=== PATIENT | female | born 1995 | race Caucasian/White ===

== ENCOUNTER 2022-09-20 03:33 | Outpatient (CLI) | payer OTHER, SELFPAY ==
[2022-09-20 16:23] LABS: Hemoglobin A1C 4.8 % (<5.7)
[2022-09-20 17:22] LABS: Anion Gap 7.7 mmol/L (3-11); BUN 13 mg/dL (7-18); CO2 29.3 mmol/L (21.0-32.0); CREATININE 0.8 mg/dL (0.55-1.02); Calcium 8.8 mg/dL (8.5-10.1); Calculated LDL 72 mg/dL (<100); Chloride 102 mmol/L (98-107); Cholesterol 187 mg/dL (<200); Estimated GFR 104.15 (mL/min/1.73m2); Glucose 85 mg/dL (74-106); HDL Cholesterol 55 mg/dL (40-60); Potassium 3.6 mmol/L (3.5-5.1); Sodium 139 mmol/L (136-145); Triglyceride 303 mg/dL (<150)
== END 2022-09-20 03:34 | disposition home or self-care (01) ==
LOC: LBO 03:33
PROVIDERS: PCP Nurse Practitioner Family; Visit Provider Nurse Practitioner Family
DX: E03.9 Hypothyroidism, unspecified (principal); F32.89 Other specified depressive episodes; F41.1 Generalized anxiety disorder; E78.1 Pure hyperglyceridemia; Z13.1 Encounter for screening for diabetes mellitus
CPT/HCPCS: 36415; 80048; 80061; 83036; 84443

== ENCOUNTER 2023-09-30 02:43 | Outpatient (CLI) | payer BC, SELFPAY ==
[2023-09-30 13:56] LABS: BUN 13 mg/dL (7-18); CREATININE 0.9 mg/dL (0.55-1.02); Calcium 9.6 mg/dL (8.5-10.1); Chloride 102 mmol/L (98-107); Estimated GFR 89.86 (mL/min/1.73m2); Glucose 96 mg/dL (74-106); Sodium 140 mmol/L (136-145); TSH (W/Ref FT4) 3.97 uIU/mL (0.36-3.74)
[2023-09-30 14:13] LABS: FREE T4 0.92 ng/dL (0.76-1.46)
== END 2023-09-30 02:44 | disposition home or self-care (01) ==
LOC: LBO 02:43
PROVIDERS: PCP Nurse Practitioner Family; Visit Provider Nurse Practitioner Family
DX: E03.9 Hypothyroidism, unspecified (principal)
CPT/HCPCS: 36415; 80048; 84439; 84443

== ENCOUNTER 2024-02-10 01:50 | Outpatient (CLI) | payer BC, SELFPAY ==
--- OUTSIDE RECORDS SUMMARY | 2024-02-10 01:54 | XMS_ITS | Encounter Summary ---
Author Organization [facility] [place] [address] Care Team Providers Care Director Of Learning Name Role Phone Belen Bravo Primary Care Provider + Reason for Visit * Reason Onset Date Comments Appointment 01/21/2023 Encounter Details Date Type Department Care Team (Late st Contact Info) Description 01/21/2023 Telephone Neurology at [facility] [address] [place] [address] Kayy Espinosa APRN [facility] [place] [address] Appointment Social History Tobacco Use Types Packs/Day Years Used Date Smoking Tobacco: Never Smokeless Tobacco: Never Comments:no smokers Alcohol Use Standard Drinks/Week Comments Yes 0 (1 standard drink = 0.6 oz pur e alcohol) Occ Sex and Gender Information Value Date Recorded Sex Assigned at Not on file Gender Identity Not on file Sexual Orientation Not on file documented as of this encounter Miscellaneous Notes * Telephone Encounter - Bianka Ramos - 01/21/2023 1:07 PM EDT Kayy Espinosa APRN does not have any later Botox appointments on 02/06/2023. * Telephone Encounter - Bianka Ramos - 01/21/2023 11:55 AM EDT Copied from CRM #[id number]. Topic: Specialty Dept CRMs - Appointment Needed >> Jan 21, 2023 11:49 AM Bennett Verma wrote: Appt Needed Specialist Kayy Espinosa APRN Relationship (if other than patient-full name): Sharmin Cherie Mayo, patient Appt. Type Needed: Other Reason for Visit: Breox Sharmin stated she is currently scheduled for an appointment on 02/09/2023 at 1:30 pm and is wondering if there is a later time that day. Sharmin stated she is at work, just ask for Sharmin documented in this encounter Plan of Treatment Upcoming Encounters Date Type Department Care Team (Late st Contact Info) Description 05/02/2024 2:00 PM EST Procedure visit Neurology at [address] [address] Aaron Ruiz [facility] [place] [address] 06/08/2024 10:30 AM EST TH Visit (TeleHealth) Neurology at [address] [address] Kayy Espinosa SPORTS PHYSICIAN [facility] [place] [address] documented as of this encounter Visit Diagnoses Not on filedocumented in this encounter Care Teams Director Of Learning Relationship Specialty Start Date End Date Belen Bravo PA [address] [place] [address] [place] [address] PCP - General Internal Medicine 04/05/19 documented as of this encounter
--- OUTSIDE RECORDS SUMMARY | 2024-02-10 01:54 | XMS_ITS | Encounter Summary ---
[place] [address] Care Team Providers Care Water Sponger Name Role Phone Belen Bravo Primary Care Provider + Reason for Visit * Reason Comments Prior Authorization Aimovig 140mg/mL SOA J Encounter Details Date Type Department Care Team (Late st Contact Info) Description 08/30/2022 Specialty [place] [id number] Tori Mo, HVAC SERVICE TECHNICIAN Social History Tobacco Use Types Packs/Day Years Used Date Smoking Tobacco: Never Smokeless Tobacco: Never Comments:no smokers Alcohol Use Standard Drinks/Week Comments Yes 0 (1 standard drink = 0.6 oz pur e alcohol) Occ Sex and Gender Information Value Date Recorded Sex Assigned at Not on file Gender Identity Not on file Sexual Orientation Not on file documented as of this encounter Progress Notes * Tori Mo - 08/30/2022 12:48 PM EDT [facility], Medication Prior Authorization Submission Patient: Sharmin Mayo Patient : 1995 Patient Address: [address] [place] [phone] Phone: [phone] (home) Medication Name: AIMOVIG AUTOINJECTOR 140 MG/ML SUBCUTANEOUS AUTO-INJECTOR Medication ID: [id number] Subscriber Insurance: [facility] Subscriber Insurance Comment: Fax: Physician: KAYY SORIANO Physician Comment: Sent Via: [facility] Parker: Prior Auth (EOC) ID: [id number] Ref/Case/PA#: NA Medication Strength Frequency Requested: Aimovig/140mg/28 Qty/Day Supply: 05/15 New Start: Renewal Diagnosis & ICD-10 Code: Chronic Migraines Patient Notified: No Submission Notes: - PA submitted via [email or web address]: Prior Auth (EOC) ID: [id number]. Documenting in EDH. Tori Mo 08/30/22 12:50 PM * Maritza Romo - 08/30/2022 12:48 PM EDT [facility], Prior Authorization Approval Medication Name: AIMOVIG AUTOINJECTOR 140 MG/ML SUBCUTANEOUS AUTO-INJECTOR Medication ID: [id number] Approval Dates: 08/30/2022 to 08/30/2023 Insurance requirements/notes: None Other Notes: None Case/Reference #: [id number] Approval notification Received via: Fax Copay: 5.00 Copay assistance: Copay Card Copay Notes: Insurance mandated Pharmacy: [facility] Fillable at [facility] Specialty Pharmacy: Yes Patient Notified: No Pharmacy staff will be reaching out to the patient to inform them of their medication's [facility]. If applicable, a pharmacist will speak with the patient to offer our specialty pharmacy services and to arrange delivery of their medication. Maritza Romo 08/31/22 7:59 AM documented in this encounter Plan of Treatment Upcoming Encounters Date Type Department Care Team (Late st Contact Info) Description 05/02/2024 2:00 PM EST Procedure visit Neurology at [address] [address] Aaron Ruiz [facility] [place] [address] 06/08/2024 10:30 AM EST TH Visit (TeleHealth) Neurology at [address] [address] Kayy Soriano [facility] [place] [address] documented as of this encounter Visit Diagnoses Not on filedocumented in this encounter Care Teams Water Sponger Relationship Specialty Start Date End Date Belen Bravo PA [address] [place] [address] [place] [address] PCP - General Internal Medicine 04/05/19 documented as of this encounter
--- OUTSIDE RECORDS SUMMARY | 2024-02-10 01:54 | XMS_ITS | Encounter Summary ---
Author Organization [facility] One [facility] [place] [address] Care Team Providers Care Hand Cloth Folder Name Role Phone Belen Bravo Primary Care Provider + Encounter Details Date Type Department Care Team (Latest Contact Info) Description 08/15/2023 Travel Social History Tobacco Use Types Packs/Day Years Used Date Smoking Tobacco: Never Smokeless Tobacco: Never Comments:no smokers Alcohol Use Standard Drinks/Week Comments Yes 0 (1 standard drink = 0.6 oz pur e alcohol) Occ Sex and Gender Information Value Date Recorded Sex Assigned at Not on file Gender Identity Not on file Sexual Orientation Not on file documented as of this encounter Plan of Treatment Upcoming Encounters Date Type Department Care Team (Late st Contact Info) Description 05/02/2024 2:00 PM EST Procedure visit Neurology at [address] [address] Aaron Ruiz [facility] [place] [address] 06/08/2024 10:30 AM EST TH Visit (TeleHealth) Neurology at [address] [address] Kayy Espinosa [facility] [place] [address] documented as of this encounter Visit Diagnoses Not on filedocumented in this encounter Care Teams Hand Cloth Folder Relationship Specialty Start Date End Date Belen Bravo PA [address] [place] [address] [place] [address] PCP - General Internal Medicine 04/05/19 documented as of this encounter
--- OUTSIDE RECORDS SUMMARY | 2024-02-10 01:54 | XMS_ITS | Encounter Summary ---
Author Organization [facility] [place] [address] Care Team Providers Care Buildings And Grounds Superintendent Name Role Phone Belen Bravo Primary Care Provider + Reason for Visit * Reason Onset Date Comments Bumped Appointment 05/03/2023 Encounter Details Date Type Department Care Team (Late st Contact Info) Description 05/03/2023 Telephone Neurology at [address] [address] Kayy Espinosa APRN [facility] [place] [address] Bumped Appointment Social History Tobacco Use Types Packs/Day [...] * Telephone Encounter - Bianka Ramos - 05/03/2023 2:36 PM EST Scheduling Instructions Provider: Aaron Ruiz APRN or Any JONES RAIL OPERATIONS CONTROLLER Visit Type: Botox (paste AMANDA Instructions or manually enter): Reschedule 08/03/2023 Botox into 08/10/2023 Botox Clinic or with any JONES RAIL OPERATIONS CONTROLLER Appt Note: 12 week Botox Additional Info Needed: documented in this encounter Plan of Treatment Upcoming Encounters Date Type Department Care Team (Late st Contact Info) Description 05/02/2024 2:00 PM EST Procedure visit Neurology at [address] [address] [facility] [place] [address] 06/08/2024 10:30 AM EST TH Visit (TeleHealth) Neurology at [address] [address] [facility] [place] [address] documented as of this encounter Visit Diagnoses Not on filedocumented in this encounter Care Teams Buildings And Grounds Superintendent Relationship Specialty Start Date End Date Belen Bravo PA [address] [place] [address] [place] [address] PCP - General Internal Medicine 04/05/19 documented as of this encounter
--- OUTSIDE RECORDS SUMMARY | 2024-02-10 01:54 | XMS_ITS | Encounter Summary ---
Author Organization [facility] One [facility] [place] [address] Care Team Providers Care Photolettering Machine Operator Name Role Phone Belen Bravo Primary Care Provider + Encounter Details Date Type Department Care Team (Latest Contact Info) Description 05/11/2023 Travel Social History Tobacco Use Types Packs/Day [...] 2:00 PM EST Procedure visit Neurology at [address] [address] Aaron Ruiz [facility] [place] [address] 06/08/2024 10:30 AM EST TH Visit (TeleHealth) Neurology at [address] [address] Kayy Espinosa [facility] [place] [address] documented as of this encounter Visit Diagnoses Not on filedocumented in this encounter Care Teams Photolettering Machine Operator Relationship Specialty Start Date End Date Belen Bravo PA [address] [place] [address] [place] [address] PCP - General Internal Medicine 04/05/19 documented as of this encounter
--- OUTSIDE RECORDS SUMMARY | 2024-02-10 01:54 | XMS_ITS | Encounter Summary ---
Author Organization [facility] [place] [address] Care Team Providers Care Project Development Director Name Role Phone Belen Bravo Primary Care Provider + Reason for Referral * High Dollar Medication (Routine) - Authorized Specialty Diagnoses / Procedures Referred By Cadence minaya Referred To Contact Neurology Diagnoses Chronic migraine without aura with status migrainosus, not intractable Procedures Onabotulinumtoxin A (BOTOX) Authorizations Request (IN CLINIC) TC ONABOTULINUMTOXINA, 1 UNIT, INJECTION Kayy Espinosa APRN [facility] [place] [address] Kayy Espinosa APRN [facility] [place] [address] Referral ID Status Reason Start Date Expiration Date Visits Requested Visits Authorized [id number] Authorized Consult, Test & Treat 04/27/2023 04/26/2024 5 8 Encounter Details Date Type Department Care Team (Late st Contact Info) Description 04/27/2023 Orders Only Neurology at [facility] [address] [place] [address] Kayy Espinosa APRN [facility] [place] [address] Chronic migraine without aura with status migrainosus, not intractable Social History Tobacco Use Types Packs/Day Years [...] 2:00 PM EST Procedure visit Neurology at [address] [address] [facility] [address] 06/08/2024 10:30 AM EST TH Visit (TeleHealth) Neurology at [address] [address] [facility] [address] documented as of this encounter Visit Diagnoses Diagnosis Chronic migraine without aura with status migrainosus, not intractable Chronic migraine without aura, without mention of intractable migraine with status migrainosus documented in this encounter Care Teams Project Development Director Relationship Specialty Start Date End Date Belen Bravo PA [address] [place] [address] [place] [address] PCP - General Internal Medicine 04/05/19 documented as of this encounter
--- OUTSIDE RECORDS SUMMARY | 2024-02-10 01:54 | XMS_ITS | Encounter Summary ---
[place] [address] Care Team Providers Care Physician General Practice Name Role Phone Belen Bravo Primary Care Provider + Reason for Visit * Reason Comments Prior Authorization Aimovig 140mg/mL SOA J Encounter Details Date Type Department Care Team (Late st Contact Info) Description 08/23/2023 Specialty [place] [phone] Tori Mo, SHIRT IRONER SUPERVISOR Social History Tobacco Use Types Packs/Day Years [...] encounter Progress Notes * Tori Mo - 08/23/2023 3:36 PM EDT [facility], Medication Prior Authorization Submission Patient: Sharmin Mayo Patient : 1995 Patient Address: [address] [place] [phone] Phone: [phone] (home) Medication Name: AIMOVIG AUTOINJECTOR 140 MG/ML SUBCUTANEOUS AUTO-INJECTOR Medication ID: [id number] Subscriber Insurance: [facility] Subscriber Insurance Comment: Insurance ID: Fax: Physician: KAYY SORIANO Physician Comment: Sent Via: [facility] Parker: NA Ref/Case/PA#: Prior Auth (EOC) ID:[id number] Medication Strength Frequency Requested: Aimovig INJECT THE CONTENTS OF ONE PEN (140 MG) SUBCUTANEOUSLY ONCE EVERY 28 DAYS Qty/Day Supply: 05/15 New Start: Renewal Diagnosis & ICD-10 Code: Chronic migraine without aura, with intractable migraine, so stated, with status migrainosus G43.711 Patient Notified: No Submission Notes: - PA submitted via [employer]: Prior Auth (EOC) ID:[id number]. Insurance has patients last name as Martin unlike how we have it as Gael in [facility] and [facility]. Documenting submission in [facility]. Tori Mo 08/23/23 3:39 PM * Tori Mo - 08/23/2023 3:36 PM EDT [facility], Benefits Investigation Patient: Sharmin Mayo Patient : 1995 Patient Address: [address] [place] [address] Phone: [phone] (home) Medication Name: AIMOVIG AUTOINJECTOR 140 MG/ML SUBCUTANEOUS AUTO-INJECTOR Medication ID: [id number] Patient Location: [facility] NEUROLOGY 3C Patient Location Comment: Medication Strength Frequency Requested: Aimovig INJECT THE CONTENTS OF ONE PEN (140 MG) SUBCUTANEOUSLY ONCE EVERY 28 DAYS Qty/Day Supply: 05/15 New Start: Renewal Diagnosis & ICD-10 Code: Chronic migraine without aura, with intractable migraine, so stated, with status migrainosus G43.711 Subscriber Insurance: [facility] Subscriber Insurance Comment: Insurance ID: Fax: Physician: KAYY SORIANO Physician Comment : PA Status: HAIDER Not Needed Insurance mandated Pharmacy: [facility]: Yes Insurance requirements/notes: - NA Copay: $5.00 Copay assistance: Copay Card Copay assistance comment: Patient has copay card on file. Pharmacy staff will be reaching out to the patient to inform them of their medication[facility]. If applicable, a pharmacist will speak with the patient to offer our specialty pharmacy services and to arrange delivery of their medication. Tori Mo 08/24/23 11:56 AM documented in this encounter Plan of Treatment Upcoming Encounters Date Type Department Care Team (Late st Contact Info) Description 05/02/2024 2:00 PM EST Procedure visit Neurology at [address] [address] Aaron Ruiz, [facility] [place] [address] 06/08/2024 10:30 AM EST TH Visit (TeleHealth) Neurology at [address] [address] Kayy Soriano [facility] [place] [address] documented as of this encounter Visit Diagnoses Not on filedocumented in this encounter Care Teams Physician General Practice Relationship Specialty Start Date End Date Belen Bravo PA [address] [place] [address] [place] [address] PCP - General Internal Medicine 04/05/19 documented as of this encounter
--- OUTSIDE RECORDS SUMMARY | 2024-02-10 01:54 | XMS_ITS | Encounter Summary ---
Author Organization [facility] [place] [address] Care Team Providers Care Aligning Checker Name Role Phone Belen Bravo Primary Care Provider + Encounter Details Date Type Department Care Team (Latest Contact Info) Description 11/14/2023 Travel Social History Tobacco Use Types Packs/Day [...] 2:00 PM EST Procedure visit Neurology at [address] [address] Aaron Ruiz [facility] [place] [address] 06/08/2024 10:30 AM EST TH Visit (TeleHealth) Neurology at [address] [address] Kayy Espinosa [facility] [place] [address] documented as of this encounter Visit Diagnoses Not on filedocumented in this encounter Care Teams Aligning Checker Relationship Specialty Start Date End Date Belen Bravo PA [address] [place] [address] [place] [address] PCP - General Internal Medicine 04/05/19 documented as of this encounter
--- OUTSIDE RECORDS SUMMARY | 2024-02-10 01:54 | XMS_ITS | Encounter Summary ---
Author Organization [facility] [place] [address] Care Team Providers Care Wire Harness Assembler Name Role Phone Belen Bravo Primary Care Provider + Reason for Visit * Reason Onset Date Comments Appointment 10/12/2022 Encounter Details Date Type Department Care Team (Late st Contact Info) Description 10/12/2022 Telephone Neurology at [address] [address] Kayy Espinosa, SOLE LEATHER CUTTING MACHINE OPERATOR [facility] [place] [address] Appointment Social History Tobacco Use Types Packs/Day [...] encounter Miscellaneous Notes * Telephone Encounter - Merle Yoon - 11/04/2022 9:16 AM EDT Patient returned call to office to schedule 3 month FUV. Patient is scheduled for 12/08/22 at 8am for Telehealth visit. * Telephone Encounter - Bianka Ramos - 10/12/2022 1:18 PM EDT Scheduling Instructions Provider: Kayy Espinosa APRN Visit Type: Telehealth Follow Up (paste AMANDA Instructions or manually enter): Return in about 3 months (around 10/20/2022) for Telehealth Appt Note: 3 month telehealth follow up Additional Info Needed: documented in this encounter Plan of Treatment Upcoming Encounters Date Type Department Care Team (Late st Contact Info) Description 05/02/2024 2:00 PM EST Procedure visit Neurology at [address] [address] Aaron Ruiz [facility] [place] [address] 06/08/2024 10:30 AM EST TH Visit (TeleHealth) Neurology at [address] [address] Kayy Espinosa [facility] [place] [address] documented as of this encounter Visit Diagnoses Not on filedocumented in this encounter Care Teams Wire Harness Assembler Relationship Specialty Start Date End Date Belen Bravo PA [address] [place] [address] [place] [address] PCP - General Internal Medicine 04/05/19 documented as of this encounter
--- OUTSIDE RECORDS SUMMARY | 2024-02-10 01:54 | XMS_ITS | Encounter Summary ---
Author Organization Formerly [facility] [place] [address] Care Team Providers Care Vocational Evaluator Name Role Phone Belen Bravo Primary Care Provider + Reason for Visit * High Dollar Medication (Routine) - Closed Specialty Diagnoses / Procedures Referred By Cadence minaya Referred To Contact Neurology Diagnoses Intractable chronic migraine without aura and with status migrainosus Procedures Onabotulinumtoxin A (BOTOX) Authorizations Request (IN CLINIC) TC ONABOTULINUMTOXINA, 1 UNIT, INJECTION PRO CHEMODENERVATION FACIAL/TRIGEM/CERV MUSC MIGRAINE BOTOX Kayy Espinosa APRN [facility] [place] [address] Kayy Espinosa PONY ROLL FINISHER [facility] [place] [address] Referral ID Status Reason Start Date Expiration Date V isits Requested Visits Authorized [id number] Closed Consult, Test & Treat 10/16/2021 11/18/2023 18 16 Encounter Details Date Type Department Care Team (Late st Contact Info) Description 06/02/2022 1:00 PM EST Office Visit Neurology at [facility] [address] [place] [address] Clarissa Guillaume APRN [facility] [address] Chronic migraine with and without aura, with intractable migraine, so stated, with status migrainosus Social History Tobacco Use Types Packs/Day Years Used Date Smoking Tobacco: Never Smokeless Tobacco: Never Comments:no smokers Alcohol Use Standard Drinks/Week Comments Yes 0 (1 standard drink = 0.6 oz pur e alcohol) Occ Sex and Gender Information Value Date Recorded Sex Assigned at Not on file Gender Identity Not on file Sexual Orientation Not on file documented as of this encounter Procedure Notes * Clarissa Guillaume, PONY ROLL FINISHER - 06/02/2022 1:00 PM EST Botox for Chronic Migraine First Botox Injection 05/28/21 Patient's Response to Botox 3-4 fewer headache days/month Last Botox: 03/10/22 Midas: 60/90. 6/, 80 Duration of migraine attacks: 1-2 /hours with treatment. Prior to botox they would last 6-8 hours. Patient Reported/Provider Adjusted: MIDAS ADJUSTED SCORE 06/02/2022 On how many days in the last three months did you have a headache? (If a headache lasted more than a day, count each day) 60 On a scale of 0 to 10, on average, how painful were those headaches? (0 = no pain at all and 10 = the worst pain you can imagine) 5 1. On how many days in the last three months did you miss work or school because of your headaches?2 2. How many days in the last three months was your productivity at work or school reduced by half or more because of your headaches? (Do not include days you counted in question 1 where you missed work or school) 30 3. On how many days in the last three months did you not do household work (such as housework, homerepairs and maintenance, shopping, caring for children and relatives) because of your headaches? 30 4. How many days in the last three months was your productivity related to household work reduced by half or more because of your headaches? (Do not include days you counted in question 3 where you did not do household work) 30 5. On how many days in the last three months did you miss family, social, or leisure activities because of your headaches? 2 MIDAS Adjusted Score 94 Indications for Botox Injections: Chronic Migraine with 23-24 headache days per month prior to Botox. Midas score of 115 7/10 pain level Procedure: Written informed consent obtained and questions answered: 12/07 Patient denies and is not planning on becoming in the next 4 months. Dilution (units/ml) 2cc per 200 units of Botox Lot number: [id number] Vial Expiration date: 08/15/2024 155 Units of botox injected 45 Units of botox wasted 0 complications Frontalis 20 units divided in 4 sites Temporalis 40 units divided in 8 sites Intern 10 units divided in 2 sites Trapezius 30 units divided in 6 sites Procerus 5 units in 1 site Cervical Paraspinals 20 units in 4 sites Occipitalis 30 units divided in 6 sites 0extra units given in Repeat Botox injections in 12 weeks ARIANNE Gomez APRN [facility] Neurology, Headache Clinic documented in this encounter Plan of Treatment Upcoming Encounters Date Type Department Care Team (Late st Contact Info) Description 05/02/2024 2:00 PM EST Procedure visit Neurology at [address] [address] Aaron Ruiz [facility] [place] [address] 06/08/2024 10:30 AM EST TH Visit (TeleHealth) Neurology at [address] [address] Kayy Espinosa [employer] ROLL FINISHER [facility] [address] documented as of this encounter Visit Diagnoses Diagnosis Chronic migraine with and without aura, with intractable migraine, so stated, with status migrainosus Chronic migraine without aura, with intractable migraine, so stated, with status migrainosus documented in this encounter Administered Medications Inactive Administered Medications - up to 3 most recent administrations Medication Order MAR Action Action Date Dose Rate Site botulinum toxin type A 200 unit injection 200 Units, Intramuscular, ONCE, On Tue06/02/22 at 1315, 1 dose Given 06/02/2022 1:21 PM EST 155 Units documented in this encounter Care Teams Vocational Evaluator Relationship Specialty Start Date End Date Belen Bravo PA [address] [place] [address] [place] [address] PCP - General Internal Medicine 04/05/19 documented as of this encounter
--- OUTSIDE RECORDS SUMMARY | 2024-02-10 01:54 | XMS_ITS | Encounter Summary ---
Author Organization [facility] [place] [address] Care Team Providers Care Poultry Hatchery Laborer Name Role Phone Belen Bravo Primary Care Provider + Encounter Details Date Type Department Care Team (Latest Contact Info) Description 06/02/2022 Travel Social History Tobacco Use Types Packs/Day [...] 2:00 PM EST Procedure visit Neurology at [address] [address] Aaron Ruiz [facility] [place] [address] 06/08/2024 10:30 AM EST TH Visit (TeleHealth) Neurology at [address] [phone] Kayy Espinosa [facility] [place] [address] documented as of this encounter Visit Diagnoses Not on filedocumented in this encounter Care Teams Poultry Hatchery Laborer Relationship Specialty Start Date End Date Belen Bravo PA [address] [place] [address] [place] [address] PCP - General Internal Medicine 04/05/19 documented as of this encounter
--- OUTSIDE RECORDS SUMMARY | 2024-02-10 01:54 | XMS_ITS | Encounter Summary ---
Author Organization [facility] [place] [address] Care Team Providers Care Cyber Security Engineer Name Role Phone Belen Bravo Primary Care Provider + Reason for Visit * High Dollar Medication (Routine) - Authorized Specialty Diagnoses / Procedures Referred By Cadence minaya Referred To Contact Neurology Diagnoses Chronic migraine without aura with status migrainosus, not intractable Procedures Onabotulinumtoxin A (BOTOX) Authorizations Request (IN CLINIC) TC ONABOTULINUMTOXINA, 1 UNIT, INJECTION Kayy Espinosa [facility] [place] [address] Kayy Espinosa [facility] [place] [address] Referral ID Status Reason Start Date Expiration Date Visits Requested Visits Authorized [id number] Authorized Consult, Test & Treat 04/27/2023 04/26/2024 5 8 Encounter Details Date Type Department Care Team (Late st Contact Info) Description 11/14/2023 3:00 PM EDT Office Visit Neurology at [facility] [address] [place] [address] Kayy Espinosa COUNTY DIRECTOR [facility] [place] [address] Chronic migraine without aura with status migrainosus, [...] on file documented as of this encounter Patient Instructions * Patient Instructions* Kayy Espinosa APRN - 11/14/2023 3:00 PM EDT Images from the original note were not included. CHECK OUT INSTRUCTIONS: - After this appointment if you have not heard from our team within 5 business days to schedule your next Botox, please call the office at . - If you have imaging ordered at [facility], please call directly: . Kayy Espinosa (she/her) FELICITA, ANNA MARIE [facility] Department of Neurology Headache Clinic Botox After Care: Botox injections don't require any recovery time. You can resume your typical activities. In order to encourage optimal treatment results, for 24 hours: - Avoid massage, touching, or pressure on the areas of injection (including tight hats, goggles, swim caps) - Avoid rigorous exercise - Avoid facials, exfoliating scrubs Information About Botox for Chronic Migraine: documented in this encounter Procedure Notes * Kayy Espinosa APRN - 11/14/2023 3:00 PM EDTAssociated Order(s): CHEMODENERVATION, MEDICAL Neurology Procedure note Date: 11/14/2023 Patient: Sharmin Mayo : 1995 Procedure: Botox injections (PREEMPT protocol) - every 12 weeks Indications: Chronic Migraine Date Procedure MIDAS 05/28/21 Botox #1 115, 10/25, 07/21/22 Botox - 155 u - Guillaume 25, 08/25, 11/17/22 Botox - 155 u - Francisca 11, 09/25, 02/09/23 Botox - 155 u - Francisca 26, 08/25, 05/11/23 Botox - 155u - KG 20, 07/26, 08/15/23 Botox - 175 u - Francisca 15, 09/25, 11/14/23 Botox - 175u - Francisca 31, 09/25, Patient Reported: 11/14/2023 2:35 PM MIDAS Responses Days missed school/work 2 Days productivity at work/school reduced 12 Days did not do household work 2 Days productivity related to housework reduced 12 Days missed family, social or leisure activities 4 Days had headache 14 Pain scale 6 MIDAS Score 32 (MIDAS grade IV, severe disability) MIDAS Adjusted Score 32 Risk and benefits were explained to the patient. Written consent was obtained: 04/2023 PROCEDURE Time out was preformed OnabotulinumtoxinA was reconstituted with 0.9% NaCl to create a dilution of 5 units per 0.1mL. Each injection site was sterilized with 70% isopropyl alcohol. Injections were administered with a 30 gauge, 1/2 needle. Injections administered as follows and performed bilaterally with injections split equally except for procerus: 20 units divided between 4 sites in the frontalis muscle, 10 units divided between 2 sites in the cleat thrower muscles, 5 units into 1 site in the procerus muscle, 40 units divided between 8 sites in the temporalis muscles, 30 units divided between 6 sites in the occipital region, 20 units divided between 4 sites in the cervicalparaspinal musculature, and 30 units divided between 6 sites in the trapezii. Additional Units: 20 units following pain. 5 units in 1 injection site(s) in the right temporalis muscle. 5 units in 1 injection site(s) in the left temporalis muscle. 5 units in 1 injection site(s) in the right occipitalis muscle. 5 units in 1 injection site(s) in the left occipitalis muscle. Total units used= 175. Total injection sites=35. Patient was injected with 175 units and 25 units were wasted/discarded. The patient tolerated the procedure without any immediate complications. The reason follow the pain was used in this specific patient was to extend areas of injection to those locations most commonly associated with peak migraine pain in this particular patient. This patient received both the PREEMPT protocol and the follow the pain protocol used in the regulatory trials and described by Zandra Rodriguez et al. Method of Injection of OnabotulinumtoxinA for Chronic Migraine: A Safe,Well-Tolerated, and Effective Treatment Paradigm Based on the PREEMPT Clinical Program. Headache 2010;50:2005-4275. Kayy Espinosa APRN [facility] [place] [place] Neurology Headache Clinic documented in this encounter Plan of Treatment Upcoming Encounters Date Type Department Care Team (Late st Contact Info) Description 05/02/2024 2:00 PM EST Procedure visit Neurology at [address] [address] Aaron Ruiz [facility] [place] [address] 06/08/2024 10:30 AM EST TH Visit (TeleHealth) Neurology at [address] [address] Kayy Espinosa COUNTY DIRECTOR [facility] [place] [address] documented as of this encounter Procedures Procedure Name Priority Date/Time Associated Diagnosis Comments CHEMODENERVATION, MEDICAL Routine 11/14/2023 3:00 PM EDT documented in this encounter Results * Chemodenervation, medical (11/14/2023 3:00 PM EDT) Narrative Kayy Espinosa APRN - 11/14/2023 3:00 PM EDT Kayy Espinosa APRN ? 11/14/2023 ??3:06 PM Neurology Procedure note Date: 11/14/2023 Patient: Sharmin Mayo : ??1995 Procedure: Botox injections (PREEMPT protocol) - ??every 12 weeks Indications: Chronic Migraine Date ??Procedure ?? MIDAS 05/28/21 Botox #1 115, 10/25, 07/21/22 Botox - 155 u - Guillaume 25, 08/25, 11/17/22 Botox - 155 u - Francisca 11, 09/25, 02/09/23 Botox - 155 u - Francisca 26, 08/25, 05/11/23 ??Botox - 155u - KG 20, 07/26, 08/15/23 Botox - 175 u - Francisca 15, 09/25, 11/14/23 Botox - 175u - Francisca 31, 09/25, ?? Patient Reported: ??11/14/2023 ??2:35 PM MIDAS Responses Days missed school/work 2 Days productivity at work/school reduced 12 Days did not do household work 2 Days productivity related to housework reduced 12 Days missed family, social or leisure activities 4 Days had headache 14 Pain scale ??6 MIDAS Score 32 (MIDAS grade IV, severe disability) MIDAS Adjusted Score 32 Risk and benefits were explained to the patient. Written consent was obtained: 04/2023 PROCEDURE Time out was preformed OnabotulinumtoxinA was reconstituted with 0.9% NaCl to create a dilution of 5 units per 0.1mL. Each injection site was sterilized with 70% isopropyl alcohol. Injections were administered with a 30 gauge, 1/2 needle. Injections administered as follows and performed bilaterally with injections split equally except for procerus: 20 units divided between 4 sites in the frontalis muscle, 10 units divided between 2 sites in the cleat thrower muscles, 5 units into 1 site in the procerus muscle, 40 units divided between 8 sites in the temporalis muscles, 30 units divided between 6 sites in the occipital region, 20 units divided between 4 sites in the cervical paraspinal musculature, and 30 units divided between 6 sites in the trapezii. Additional Units: 20 units following pain. 5 units in 1 injection site(s) in the right temporalis muscle. 5 units in 1 injection site(s) in the left temporalis muscle. 5 units in 1 injection site(s) in the right occipitalis muscle. 5 units in 1 injection site(s) in the left occipitalis muscle. Total units used= 175. Total injection sites=35. Patient was injected with 175 units and 25 units were wasted/discarded. The patient tolerated the procedure without any immediate complications. The reason follow the pain was used in this specific patient was to extend areas of injection to those locations most commonly associated with peak migraine pain in this particular patient. This patient received both the PREEMPT protocol and the follow the pain protocol used in the regulatory trials and described by Zandra Rodriguez, et al. Method of Injection of OnabotulinumtoxinA for Chronic Migraine: A Safe,Well-Tolerated, and Effective Treatment Paradigm Based on the PREEMPT Clinical Program. Headache 2010;50:3960-4967. Kayy Espinosa APRN [facility] [place] [place] Neurology Headache Clinic Kayy Espinosa APRN PROCEDURE/MINOR SURG ICAL ORDERABLES documented in this encounter Visit Diagnoses Diagnosis Chronic migraine without aura with status migrainosus, not intractable Chronic migraine without aura, without mention of intractable migraine with status migrainosus documented in this encounter Administered Medications Inactive Administered Medications - up to 3 most recent administrations Medication Order MAR Action Action Date Dose Rate Site onabotulinumtoxinA (Botox) injection 200 Units 200 Units, Intramuscular, ONCE, On 11/14/23 at 1515, 1 dose Given 11/14/2023 3:05 PM EDT 175 Units documented in this encounter Care Teams Cyber Security Engineer Relationship Specialty Start Date End Date Belen Bravo PA [address] [place] [address] [place] [address] PCP - General Internal Medicine 04/05/19 documented as of this encounter
--- OUTSIDE RECORDS SUMMARY | 2024-02-10 01:54 | XMS_ITS | Encounter Summary ---
Author Organization [facility] [place] [address] Care Team Providers Care Farm Equipment Assembler Name Role Phone Belen Bravo Primary Care Provider + Encounter Details Date Type Department Care Team (Latest Contact Info) Description 07/21/2022 3:00 PM EDT TH Visit (TeleHealth) Neurology at [address] [phone] Kayy Espinosa APRN [facility] [place] [address] Chronic migraine with and without aura, with [...] * Patient Instructions* Kayy Espinosa APRN - 07/21/2022 3:00 PM EDT Continue Botox + Aimovig Take tylenol 30 minutes prior to Botox appointment OK to take Sumatriptan of Nurtec after at headache onset if you have a hi lo driver ( For rescue, start Nurtec 75 mg If this is effective we will discontinue Sumatriptan This medication is well tolerated with rare side effects (feeling tired) Take at very first sign of aura Only one tablet per day Will not cause rebound headache,OK to take multiple days in a row if needed Do not combine with Sumatriptan [phone] (pharmacy) Please call us if you have a difficult time obtaining Nurtec, or if cost is high documented in this encounter Progress Notes * Kayy Espinosa APRN - 07/21/2022 3:00 PM EDT [facility] [place] [facility] [place] Follow-Up Patient name: Sharmin Mayo Date of : 1995 PCP: HAIDER Alatorre Sharmin Mayo gave verbal consent for her Telehealth Visit. She/He/They understand that this visit will be billed to her/his insurance, similar to a clinic visit. Location at time of visit: [place] ID: Sharmin Mayo is a 26 y.o. female with a past medical history of chronic pain (neg rheum workup w/ neg or nl NANI, HLAB27, inflammatory markers) synthroid, and generalized anxiety disorder who is being followed for migraine with and without visual and speech aura ABHIJIT: 10/15/21 Last Visit: 04/15/22 Prior seen by: Yoni Hudson MD on 01/19/2021 HPI: Please see ABHIJIT note dated 10/15/21 for full HPI Sharmin first sought treatment for her history of headaches since age [address] Madyson Lazaro in [place] [facility] [place] in [place]. During this time she had continuous chronic migraine. In 2018 Sharmin was seen by Neurology in [place] and started on lower dose of Aimovig. Stopped d/t . She presented to Dr. Ivelisse Hudson for initial visit on 06/26/2019 and was having continuous headaches at this time. Since initial visit she has been placed back on Aimovig (started after prior care), and started Botox as well. Aimovig started 05/26/2021, initially with 50% reduction in headache days, now s/p >12 injections. Then Botox started 05/28/2021, now s/p >4 cycles, with a reduction of headache days from 70/90 to 40/. Previous Visit: Continue Aimovig Continue Botox Continue Supplementation Restart Sumatriptan Start Nurtec Interval Events: - Overall Marcys headaches are under relatively good control with Botox + Aimovig - No issues with Aimovig or Botox, however she does notice some Botox wear off at the end of the cycle - She has had a few recent JONES spells with stomach bug - Took Sumatriptan and tylenol after last Botox, felt extremely drowsy, needing to sleep within an hour Patient Reported: 07/21/2022 2:47 PM MIDAS Responses Days missed school/work 2 Days productivity at work/school reduced 10 Days did not do household work 2 Days productivity related to housework reduced 10 Days missed family, social or leisure activities 1 Days had headache 25 Pain scale 5 MIDAS Score 25 (MIDAS grade IV, severe disability) MIDAS Adjusted Score 25 ??MIDAS History Date JONES Pain JONES days Score Comments 01/19/202109/25 69 10/15/2109/25 130 ABHIJIT - Francisca 04/15/202208/25 80 07/21/2208/25 25 Current preventative regimen and frequency: Aimovig Botox Current abortive regimen and frequency: Sumatriptan Medications: Current Outpatient Medications Medication Sig Dispense Refill ??? rimegepant (Nurtec ODT) 75 mg Tablet, Rapid Dissolve Take 1 tablet by mouth daily as needed (migraine). 8 tablet 5 ??? SUMAtriptan (Imitrex) 100 mg Tablet Take 1 tablet by mouth as needed for Migraine. Initial dose: 25 mg, 50 mg, or 100 mg (take with fluids). May repeat dose after 2 hours. Max daily dose: 200 mg 10 tablet 11 ??? Aimovig Autoinjector 140 mg/mL Auto-Injector INJECT THE CONTENTS OF ONE PEN (140MG) SUBCUTANEOUSLY ONCE EVERY 28 DAYS. 1 mL 5 ??? sertraline (ZOLOFT) 100 mg Tablet Take 100 mg by mouth daily. Total dose 150 mg daily ??? busPIRone (Buspar) 10 mg Tablet Take 10 mg by mouth 2 times daily. ??? sertraline (Zoloft) 50 mg Tablet Take 50 mg by mouth daily. Total dose of 150 mg daily ??? levothyroxine (Synthroid) 25 mcg Tablet Take 25 mcg by mouth daily. No current facility-administered medications for this visit. Physical Exam: Constitutional: 27 y.o. female appears stated age, well nourished, well developed, in no acute distress HEENT: Head atraumatic, normocephalic. Resp: No obvious dyspnea or accessory muscle use Neuro: ?? MS: Alert and oriented. Speech is spontaneous, smooth and articulate without dysarthria. Memory intact to the situation and disease history. Relevant Labs: No results found for this or any previous visit (from the past 24 hour(s)). Diagnostic Tests and Imaging/Previous Workup: Please see e-record for full details MRI brain with and without 11/02/2010 IMPRESSION: ?? Normal brain MR. Assessment and plan: Sharmin Myao is a 26 year old female presenting with and without visual and speech aura. Sharmin has had an overall reduction of headache days 70/90 to 25/90 on combination of Aimovig and Botox. Plan to continue as we would still expect increased efficacy over time. If approved, she wouldbenefit from additional follow the pain units up to 200 units Botox Q12 weeks to help prevent wear off and allow further optimization. As stated prior, while we have a good plan to optimize prevention, Sharmin still needs an effective rescue treatment without side effects. Migranal ineffective, d/c. Plan for Nurtec 75 mg which has been approved. Recommend continued avoidance of while on Botox and Aimovig. Synergy for BTX + MAB is established: 1.??Zandra AM, Joe BM, Edwin ZelayaD, Miley A, Vickey G, Zay L, Gerhard Ramos A. Real-World Evidence for Control of Chronic Migraine Patients Receiving CGRP Monoclonal Antibody Therapy Added to OnabotulinumtoxinA: A Retrospective Chart Review. Pain Ther. 2020Aug 06. doi: 10.1007/s40 [phone]-[id number]. Epub ahead of print. PMID: 32251882. 2.??Negro F, Abdi C, Harrison RB, Ina Ramon. Efficacy and Tolerability of Calcitonin Gene-Related Peptide-Targeted Monoclonal Antibody Medications as Add- on Therapy to OnabotulinumtoxinA in Patients with Chronic Migraine. Pain Med. 2020Nov 21;22(8):6272-7716. doi: 10.1093/pm/jelg505. PMID: 22164762. 3.??Familia L, TP, Ashley H, Ashley M, Lew R. Dual Therapy With Anti- CGRP Monoclonal Antibodies and Botulinum Toxin for Migraine Prevention: Is There a Rationale? Headache. 2019;60(6):7516-4128. doi: 10.1111/head.65236. Epub 2019September 05. PMID: 72353562. Plan to see Sharmin Mayo for a follow- up visit in 3 months to discuss efficacy of rescue medications. #Chronic migraine with and without aura ?? Workup/Referrals/Recommendations - avoidance, reliable contraceptive recommended if possible as discussed at ABHIJIT ?? For prevention: Consider Magnesium 500mg, B2 (Riboflavin) 400mg, CoQ10 300mg Continue Aimovig 140 mg/mL auto injector Continue Botox ?? For acute JONES Nurtec 75 mg OR Sumatriptan 100 mg ?? Future considerations: Ajovy/Emgality/Vyepti Ubrelvy Please note that with a telehealth encounter a full physical exam is not possible, and is an inherent limitation with this form of care delivery. Based on all considered variables it was felt that the benefits of a telehealth encounter would outweigh the risks of not being able to repeat the neurological examination. Based on the information provided by the patient today there is nothing to suspect a new focal neurological deficit. 30 minutes were spent in reviewing history, formulating and discussing diagnosis and plan, and education. This office note has been dictated - please excuse minor typos. Kayy Espinosa APRN Department of Neurology [facility] ?? Medications Tried ([x]? checked have been tried in the past) ? Anti-Depressants: SSRI: [x]? Citalopram (Celexa) []? Escitalopram (Lexapro) []? Fluvoxamine (Luvox) []? Fluoxetine (Prozac) []? Paroxetine (Paxil) [x]? Sertraline (Zoloft) SNRI: []? Desvenlafaxine (Pristiq/Khedezla) []? Duloxetine (Cymbalta) []? Levomilnacipran (Fetzima) []? Milnacipran (Savella) []? Venlafaxine (Effexor) TCA: [x]? Amitriptyline (Elavil) []? Amoxapine []? Clomipramine (Anafranil) []? Desipramine (Norpramin) []? Doxepin (Sinequan) []? Imipramine (Tofranil) []? Maprotiline (Ludiomil) []? Nortriptiline (Pamelor) []? Protriptyline (Vivactil) []? Trimipramine (Surmontil) MAOI: []? Phenelzine (Nardil) []? Selegiline (Emsam) []? Tranylcypromine (Parnate) Atypicals: []? Bupropion (Wellbutrin) []? Mirtazapine (Remeron) []? Nefazodone (Serzone) []? Trazodone []? Vilazodone (Viibryd) []? Vortioxetine (Trintellix) ?? Anti-Hypertensives: FLORENTINO Inhibitors: []? Benazepril (Lotensin) []? Captopril []? Enalapril (Vasotec) []? Fosinopril []? Lisinopril (Prinivil) []? Moexipril []? Perindopril (Aceon) []? Quinapril (Accupril) []? Ramipril (Altace) []? Trandolapril (Mavik) Alpha-1 Blockers []? Doxazosin []? Prazosin []? Tetrazosin Angiotensin II Receptor Blockers: []? Azilsartan (Edarbi) []? Candesartan (Atacand) []? Eprosartan []? Irbesartan (Avapro) []? Losartan (Cozaar) []? Olmesartan (Benicar) []? Telmisartan (Misardis) []? Valsartan (Diovan) Beta Blockers []? Acebutolol (Sectral) []? Atenolol (Tenormin) []? Bisoprolol (Zebeta) []? Metoprolol (Lopressor) []? Nadolol (Cogard) []? Nebivolol (Bystolic) [x]? Propranolol (Inderal) []? Timolol Calcium Channel Blockers: []? Amlodipine (Norvasc) []? Bepridil (Vascor) []? Diltiazem (Cardiazem) []? Felodipine (Plendil) []? Nicardipine (Cardene) []? Nifedipine (Procardia) []? Nisoldipine (Sular) []? Verapamil ?? Diuretics: []? Furosemide (Lasix) []? Hydrochlorothiazide (Microzide) []? Spironolactone (Aldactone) ?? Carbonic Anhydrase Inhibitors: []? Acetazolamide (Diamox) []? Methazolamide Anti-seizure: []? Carbamazepine (Tegretol) []? Gabapentin (Neurontin) []? Lamotrigine (Lamictal) []? Levetiracetam (Keppra) []? Oxcarbazepine (Trileptal) []? Phenobarbital []? Phenytoin (Dilantin) []? Pregabalin (Lyrica) []? Primidone []? Sodium Valproate (Depakote) [x]? Topiramate (Topamax) []? Zonisamide (Zonegran) ?? Monoclonal Antibodies: [x]? Aimovig Effective - start 05/26/20 []? Ajovy []? Emgality []? Vyepti ?? Toxins: [x]? OnabotulinumtoxinA (Botox) ?? Gepants []? Ubrelvy (ubrogepant) [x]? Nurtec (rimegepant) []? Qulipta (atogepant) ?? Ditans - high-affinity 5-HT1F receptor agonist []? Reyvow (lasmiditan) ?? Supplements: []? Butterbur []? Coenzyme Q10 []? Feverfew []? Magnesium []? Melatonin []? Migrelief (B2, mag, feverfew) []? Vitamin B2 (riboflavin) ?? Other: []? Boswellia Karon []? Buspirone (Buspar) []? Doxycycline []? Lidocaine patch (Lidoderm) []? [place] []? Memantine (Namenda) []? Montelukast (Singulair) []? Naloxone []? Oxygen ?? Triptans oral: []? Almotriptan (Axert) []? Eletriptan (Relpax) []? Frovatriptan (Frova) [x]? Naratriptan (Amerge) [x]? Rizatriptan (Maxalt) SE: drowsy [x]? Sumatriptan (Imitrex) SE: dizzy, drowsy []? Sumatriptan/Naproxen (Treximet) []? Zolmitriptan (Zomig) Triptans nasal: []? Sumatriptan (Onzetra) nasal powder []? Sumatriptan (Imitrex) nasal spray []? Sumatriptan (Tosymra) nasal spray []? Zomig nasal spray Triptans injectable: []? Sumatriptan (Imitrex) solution 3 mg, 4 mg, 6 mg ?? Ergotamines oral: []? Ergotamine/caffeine tab (Cafergot) []? Methergine []? Methylsergide (Sansert) Ergotamines nasal: []? Dihydroergotamine nasal spray (Migranal) Ergotamine Injectable: []? Dihydroergotamine solution for injection (DHE-45) Ergotamine suppository: []? Ergotamine/caffeine suppository (Migergot) ?? NSAIDS: []? Aspirin []? Celecoxib (Celebrex) []? Diclofenac potassium []? Flurbiprofen [x]? Ibuprofen (Advil) []? Indomethacin []? Ketoprofen []? Ketorolac (Toradol) []? Meloxicam (Mobic) []? Nabumetone []? Naproxen sodium (Aleve) Anti-Histamines: []? Cyproheptadine (Periactin) []? Diphenhydramine (Benadryl) []? Hydroxyzine (Vistaril/Atarax) ?? Anti-emetics: []? Aprepitant (Emend) []? Chlorpromazine (Thorazine) []? Granisetron []? Metoclopramide (Reglan) []? Meclizine (Bonine) []? Ondansetron (Zofran) []? Prochlorperazine (compazine) [x]? Promethazine (Phenergan) []? Scopolamine patch ?? Muscle relaxers: []? Baclofen (lioresal) []? Cyclobenzaprine (flexeril) []? Metaxalone (skelaxin) []? Methocarbamol (robaxin) []? Tizanidine (zanaflex) ?? Steroids: []? Dexamethasone (Decadron) []? Methylprednisolone (Medrol) []? Prednisone []? Triamcinolone (Kenalog) ?? Procedures: []? Auriculotemporal blocks []? Lumbar puncture []? Occipital nerve blocks []? Sphenopalatine ganglion blocks []? Supraorbital blocks []? Trigger point injections ?? Neuromodulation: []? Cefaly []? nVNS/Gammacore []? Spring TMS []? Nerivio ?? Non-pharmacologic Tx []? Acupuncture []? Acupressure []? Biofeedback []? Checker Stocker []? Cognitive Behavioral Therapy []? Craniosacral therapy []? Massage therapy []? Physical therapy ?? Benzodiazepines: []? Alprazolam (Xanax) []? Chlordiazepoxide (Librium) []? Clonazepam (Klonopin) []? Diazepam (Valium) []? Lorazepam (Ativan) []? Temazepam (Restoril) ?? Combination/Other Analgesics: []? Acetaminophen (Tylenol) []? Acetaminophen/aspirin/caffeine (Excedrin/Pamprin) []? Acetaminophen/caffeine/pyrilamine maleate (Midol) []? Acetaminophen/dichloralphenazone/ isometheptene (Midrin) Opioids/Narcotics/Controlled Substances: []? Acetaminophen/Codeine (Tylenol #3) []? Acetaminophen/Hydrocodone ([place]/Vicodin) []? Acetaminophen/Oxycodone (Percocet) []? Butalbital/aspirin/caffeine/codeine (Fiorinal with codeine) []? Butalbital/Aspirin/Caffeine (Fiorinal) []? Butalbital/acetaminophen/caffeine (Fioricet) []? Butorphanol (Ketamine/Stadol) []? Carisoprodol (Soma) []? Fentanyl []? Hydrocodone []? Hydromorphone (Dilaudid) []? Marijuana []? Morphine (MS Contin) [x]? Oxycodone [x]? Tramadol (Ultram) []? Zolpidem (Ambien) ?? documented in this encounter Plan of Treatment Upcoming Encounters Date Type Department Care Team (Late st Contact Info) Description 05/02/2024 2:00 PM EST Procedure visit Neurology at [address] [phone] Aaron Ruiz [facility] [place] [address] 06/08/2024 10:30 AM EST TH Visit (TeleHealth) Neurology at [address] [address] Kayy Espinosa APRN [facility] [place] [address] documented as of this encounter Visit Diagnoses Diagnosis Chronic migraine with and without aura, with intractable migraine, so stated, with status migrainosus Chronic migraine without aura, with intractable migraine, so stated, with status migrainosus documented in this encounter Care Teams Farm Equipment Assembler Relationship Specialty Start Date End Date Belen Bravo PA [address] [place] [address] [place] [address] PCP - General Internal Medicine 04/05/19 documented as of this encounter
--- OUTSIDE RECORDS SUMMARY | 2024-02-10 01:54 | XMS_ITS | Encounter Summary ---
Author Organization [facility] [place] [address] Care Team Providers Care Clinical Reimbursement Specialist Name Role Phone Belen Bravo Primary Care Provider + Reason for Visit * Reason Comments Medication Refill Encounter Details Date Type Department Care Team ([facility] st Contact Info) Description 02/10/2023 Refill Neurology at [address] [phone] Kayy Espinosa APRN [facility] [place] [address] Social History Tobacco Use Types Packs/Day Years [...] encounter Miscellaneous Notes * Telephone Encounter - Leticia Tinsley RN - 02/10/2023 5:09 PM EDT Prescription Renewal Request Name: Sharmin Mayo : 1995 Prescription(s) Requested: Requested Prescriptions Pending Prescriptions Disp Refills Aimovig Autoinjector 140 mg/mL Auto-Injector [Pharmacy Med Name: AIMOVIG 140MG/ML SOAJ] 1 mL 5 Sig: INJECT THE CONTENTS OF ONE PEN (140 MG) SUBCUTANEOUSLY ONCE EVERY 28 DAYS Date of Encounter last in This Dept (If need an appointment send to secretaries to schedule): Kayy Espinosa APRN , 02/09/23 Next Encounter in This Dept: 05/06/2023 Date of Last Refill (for each medication): 08/04/2022, Dispense: 1 mL, Refills: 5 Medication category requirements (labs etc): n/a Status of request: Pended No Known Allergies Leticia Tinsley, RN 02/10/23 5:10 PM documented in this encounter Plan of Treatment Upcoming Encounters Date Type Department Care Team (Late st Contact Info) Description 05/02/2024 2:00 PM EST Procedure visit Neurology at [address] [address] Aaron Ruiz [facility] [place] [address] 06/08/2024 10:30 AM EST TH Visit (TeleHealth) Neurology at [address] [address] Kayy Espinosa PIGMENT MAKING SUPERVISOR [facility] [place] [address] documented as of this encounter Visit Diagnoses Not on filedocumented in this encounter Care Teams Clinical Reimbursement Specialist Relationship Specialty Start Date End Date Belen Bravo PA [address] [place] [address] [place] [address] PCP - General Internal Medicine 04/05/19 documented as of this encounter
--- OUTSIDE RECORDS SUMMARY | 2024-02-10 01:54 | XMS_ITS | Encounter Summary ---
Author Organization [facility] [place] [address] Care Team Providers Care Rabble Furnace Tender Name Role Phone Belen Bravo Primary Care Provider + Reason for Visit * High Dollar Medication (Routine) - Closed Specialty Diagnoses / Procedures Referred By Cadence minaya Referred To Contact Neurology Diagnoses Intractable chronic migraine without aura and with status migrainosus Procedures Onabotulinumtoxin A (BOTOX) Authorizations Request (IN CLINIC) TC ONABOTULINUMTOXINA, 1 UNIT, INJECTION PRO CHEMODENERVATION FACIAL/TRIGEM/CERV MUSC MIGRAINE BOTOX Kayy Espinosa APRN [facility] [place] [address] Kayy Espinosa FURNACE PACKER [facility] [place] [address] Referral ID Status Reason Start Date Expiration Date V isits Requested Visits Authorized [id number] Closed Consult, Test & Treat 10/16/2021 11/18/2023 18 16 Encounter Details Date Type Department Care Team (Late st Contact Info) Description 08/25/2022 4:30 PM EDT Office Visit Neurology at [address] [phone] Clarissa Guillaume APRN [facility] [place] [address] Chronic migraine with and without aura, with [...] this encounter Procedure Notes * Clarissa Guillaume, FURNACE PACKER - 08/25/2022 4:30 PM EDT Botox for Chronic Migraine First Botox Injection 05/28/21 Patient's Response to Botox 15-16 fewer headache days/month Last Botox: 06/02/2022 Midas: 60/90. 08/25, Duration of migraine attacks: 1-2 /hours with treatment. Prior to botox they would last 6-8 hours. Patient Reported/Provider Adjusted: 07/21/2022 2:47 PM MIDAS ADJUSTED SCORE On how many days in the last three months did you have a headache? (If a headache lasted more than a day, count each day) 25 On a scale of 0 to 10, [...] 1 where you missed work or school) 10 3. On how many days in the last three months did you not do household work (such as housework, homerepairs and maintenance, shopping, caring for children and relatives) because of your headaches? 2 4. How many days in the last three months was your productivity related to household work reduced by half or more because of your headaches? (Do not include days you counted in question 3 where you did not do household work) 10 5. On how many days in the last three months did you miss family, social, or leisure activities because of your headaches? 1 MIDAS Adjusted Score 25 Indications for Botox Injections: Chronic Migraine with 23-24 headache days per month prior to Botox. Midas score of 115 7/10 pain level Procedure: Written informed consent obtained and questions answered: 12/07 Patient denies and is not planning on becoming in the next 4 months. Dilution (units/ml) 2cc per 200 units of Botox Lot number: [id number] Vial Expiration date: 01/15/2025 155 Units of botox injected 45 Units of botox wasted 0 complications Frontalis 20 units divided in 4 sites Temporalis 40 units divided in 8 sites Chief Compressor Station Engineer 10 units divided in 2 sites Trapezius 30 units divided in 6 sites Procerus 5 units in 1 site Cervical Paraspinals 20 units in 4 sites Occipitalis 30 units divided in 6 sites 0extra units given in Repeat Botox injections in 12 weeks ARIANNE Gomez APRN [facility] Neu[facility], Headache Clinic documented in this encounter Plan of Treatment Upcoming Encounters Date Type Department Care Team (Late st Contact Info) Description 05/02/2024 2:00 PM EST Procedure visit Neurology at [address] [address] Aaron Ruiz FURNACE PACKER [facility] [place] [address] 06/08/2024 10:30 AM EST TH Visit (TeleHealth) Neurology at [address] [address] Kayy Espinosa FURNACE PACKER [facility] [place] [address] documented as of this encounter Visit Diagnoses [...] unit injection 200 Units, Intramuscular, ONCE, On Tue08/25/22 at 1645, 1 dose Given 08/25/2022 4:47 PM EDT 155 Units documented in this encounter Care Teams Rabble Furnace Tender Relationship Specialty Start Date End Date Belen Bravo PA [address] [place] [address] [place] [address] PCP - General Internal Medicine 04/05/19 documented as of this encounter
--- OUTSIDE RECORDS SUMMARY | 2024-02-10 01:54 | XMS_ITS | Encounter Summary ---
Author Organization [facility] [place] [address] Care Team Providers Care Administrative Hearing Officer Name Role Phone Belen Bravo Primary Care Provider + Reason for Visit * Reason Onset Date Comments Botox Injection 04/27/2023 Encounter Details Date Type Department Care Team (Late st Contact Info) Description 04/27/2023 Telephone Neurology at [facility] [address] [place] [address] Kayy Espinosa APRN [facility] [place] [address] Botox Injection Social History Tobacco Use Types Packs/Day Years [...] Miscellaneous Notes * Telephone Encounter - Leticia Reveles Cherie - 04/27/2023 2:53 PM EST The updated process for Botox authorization includes needing a new order once a year. In order to get the authorization updated we need a new updated Botox entered using the Botox Smart Set Authorization for Botox Injection signed. The frequency on the previous order was q 12 wks and the dx was G43.711 Thank you for your assistance with this. Sherice documented in this encounter Plan of Treatment Upcoming Encounters Date Type Department Care Team (Late st Contact Info) Description 05/02/2024 2:00 PM EST Procedure visit Neurology at [address] [address] Aaron Ruiz [facility] [place] [address] 06/08/2024 10:30 AM EST TH Visit (TeleHealth) Neurology at [address] [phone] Kayy Espinosa [facility] [place] [address] documented as of this encounter Visit Diagnoses Not on filedocumented in this encounter Care Teams Administrative Hearing Officer Relationship Specialty Start Date End Date Belen Bravo PA [address] [place] [address] [place] [address] PCP - General Internal Medicine 04/05/19 documented as of this encounter
--- OUTSIDE RECORDS SUMMARY | 2024-02-10 01:54 | XMS_ITS | Encounter Summary ---
Author Organization [facility] [place] [address] Care Team Providers Care Check Out Cashier Name Role Phone Belen Bravo Primary Care Provider + Reason for Visit * Reason Comments Medication Refill Encounter Details Date Type Department Care Team (Late st Contact Info) Description 08/28/2022 Refill Neurology at [address] [phone] Kayy Espinosa [facility] [place] [address] Social History Tobacco Use Types Packs/Day Years [...] 2:00 PM EST Procedure visit Neurology at [address] [address] Aaron Ruiz [facility] [place] [address] 06/08/2024 10:30 AM EST TH Visit (TeleHealth) Neurology at [address] [place] [address] Kayy sEpinosa APRN [facility] [address] documented as of this encounter Visit Diagnoses Not on filedocumented in this encounter Care Teams Check Out Cashier Relationship Specialty Start Date End Date Belen Bravo PA [address] [place] [address] [place] [address] PCP - General Internal Medicine 04/05/19 documented as of this encounter
--- OUTSIDE RECORDS SUMMARY | 2024-02-10 01:54 | XMS_ITS | Encounter Summary ---
Author Organization [facility] [place] [address] Care Team Providers Care Crab Fisherman Name Role Phone Belen Bravo Primary Care Provider + Encounter Details Date Type Department Care Team (Latest Contact Info) Description 12/08/2022 8:00 AM EDT TH Visit (TeleHealth) Neurology at [address] [address] Kayy Espinosa APRN [facility] [place] [address] Chronic migraine with and without aura, with [...] * Patient Instructions* Kayy Espinosa APRN - 12/08/2022 8:00 AM EDT Continue Botox and Aimovig For mini prevention during your period, you can take Nurtec every other day, starting 2 days prior to your period and ending on approximately the last day of your period Zofran 4 mg PRN for nausea, OK to take with Nurtec documented in this encounter Progress Notes * Kayy Espinosa APRN - 12/08/2022 8:00 AM EDT [facility] Headache Clinic Telehealth Follow-Up Patient name: Sharmin [...] and speech aura ABHIJIT: 10/15/21 Last Visit: 07/21/22 Prior seen by: Yoni Hudson MD on 01/19/2021 HPI: Please see ABHIJIT note dated 10/15/21 for full HPI Sharmin first sought treatment for her history of headaches since age [address] Madyson Lazaro in pediatric neurology at [facility] once in 2010 and once in 2013. During this time she had continuous chronic migraine. In 2018 Sharmin was seen by Neurology in [place] and started on lower dose of Aimovig. [...] reduction of headache days from 70/90 to 40/90. Previous Visit: Continue Aimovig Continue Botox Continue Supplementation Continue Sumatriptan and Nurtec Interval Events: - Overall feeling well on Botox + Aimovig - Breakthrough migraines happening during 3rd day of menses, w/ nausea, missing work - Sumatriptan worsened headache - Just received Nurtec not tried yet - No health changes or migraine changes Patient Reported: 12/08/2022 7:54 AM MIDAS Responses Days missed school/work 2 Days productivity at work/school reduced 5 Days did not do household work 2 Days productivity related to housework reduced 5 Days missed family, social or leisure activities 1 Days had headache 10 Pain scale 5 MIDAS Score 15 (MIDAS grase III, moderate disability) MIDAS Adjusted Score 15 MIDAS History Date JONES Pain JONES days Score Comments 01/19/202109/25 69 10/15/2109/25 130 ABHIJIT - Francisca 04/15/202208/25 80 12/08/2208/25 25 Current preventative regimen and frequency: Aimovig Botox Current abortive regimen and frequency: Sumatriptan Medications: Current Outpatient Medications Medication Sig Dispense Refill erenumab-aooe (Aimovig Autoinjector) 140 mg/mL Auto-Injector Inject 1 mL subcutaneously every 28 days. 1 mL 5 rimegepant (Nurtec ODT) 75 mg Tablet, Rapid Dissolve Take 1 tablet by mouth daily as needed (migraine). 8 tablet 5 SUMAtriptan (Imitrex) 100 mg Tablet Take 1 tablet by mouth as needed for Migraine. Initial dose: 25mg, 50 mg, or 100 mg (take with fluids). May repeat dose after 2 hours. Max daily dose: 200 mg 10 tablet 11 sertraline (ZOLOFT) 100 mg Tablet Take 100 mg by mouth daily. Total dose 150 mg daily busPIRone (Buspar) 10 mg Tablet Take 10 mg by mouth 2 times daily. sertraline (Zoloft) 50 mg Tablet Take 50 mg by mouth daily. Total dose of 150 mg daily levothyroxine (Synthroid) 25 mcg Tablet Take 25 mcg by mouth daily. No current facility-administered medications for this visit. Physical Exam: Constitutional: 27 y.o. female appears stated age, well nourished, well developed, in no acute distress HEENT: Head atraumatic, normocephalic. Resp: No obvious dyspnea or accessory muscle use Neuro: MS: Alert and oriented. Speech is spontaneous, smooth and articulate without dysarthria. Memory intact to the situation and disease history. Relevant Labs: No results found for this or any previous visit (from the past 24 hour(s)). Diagnostic Tests and Imaging/Previous Workup: Please see e-record for full details MRI brain with and without 11/02/2010 IMPRESSION: Normal brain MR. Assessment and plan: Sharmin Mayo is a 27 year old female presenting with migraine with and without visual and speechaura. Sharmin has had an overall reduction of headache days 70/90 to 10 on combination of Aimovig and Botox. Plan to continue. Breakthrough headaches occurring reliably with menses - discussed that she can try Nurtec every other day dosing during period for mini prevention. SE to Naratriptan previously. Recommend continued avoidance of while on Botox and Aimovig. Synergy for BTX + MAB is established: 1. Zandra AM, oJe COLON, Edwin ZelayaD, Miley A, Vickey G, Zay L, Gerhard Ramos A. Real-World Evidence for Control of Chronic Migraine Patients Receiving CGRP Monoclonal Antibody TherapyAdded to OnabotulinumtoxinA: A Retrospective Chart Review. Pain Ther. 2020Aug 06. doi: 10.1007/s401 [phone]-x. Epub ahead of print. PMID: 68915374. 2. Negro F, Abdi C, Harrison RB, Ina S. Efficacy and Tolerability of Calcitonin Ylne-EhjcpuqTwkeutg-Ahvxvham Monoclonal Antibody Medications as Add- on Therapy to OnabotulinumtoxinA in Patients with Chronic Migraine. Pain Med. 2020 6;22(8):2632-4580. doi: 10.1093/pm/kvdr139. PMID: 68359086. 3. Familia L, TP, Ashley H, Ashley M, Lew R. Dual Therapy With Anti-CGRP Monoclonal Antibodies and Botulinum Toxin for Migraine Prevention: Is There a Rationale? Headache. 2020 Dave;60(6):9155-4031. doi: 10.1111/head.51562. Epub 2019September 05. PMID: 06358364. Plan to see Sharmin Mayo for a follow- up visit in 6 #Chronic migraine with and without aura Workup/Referrals/Recommendations - avoidance, reliable contraceptive recommended if possible as discussed at ABHIJIT For prevention: Consider supplements Continue Aimovig 140 mg/mL auto injector Continue Botox For acute JONES Nurtec 75 mg for mini prevention during menses Sumatriptan 100 mg Start Zofran Future considerations: Ajovy/Emgality/Vyepti Ubrelvy Please note that [...] to suspect a new focal neurological deficit. 20 minutes were spent in reviewing history, formulating and discussing diagnosis and plan, and education. This office note has been dictated - please excuse minor typos. Kayy Espinosa APRN Department of Neurology [facility] Medications Tried ([x] checked have been tried in the past) Anti-Depressants: SSRI: [x] Citalopram (Celexa) [] Escitalopram (Lexapro) [] Fluvoxamine (Luvox) [] Fluoxetine (Prozac) [] Paroxetine (Paxil) [x] Sertraline (Zoloft) SNRI: [] Desvenlafaxine (Pristiq/Khedezla) [] Duloxetine (Cymbalta) [] Levomilnacipran (Fetzima) [] Milnacipran (Savella) [] Venlafaxine (Effexor) TCA: [x] Amitriptyline (Elavil) [] Amoxapine [] Clomipramine (Anafranil) [] Desipramine (Norpramin) [] Doxepin (Sinequan) [] Imipramine (Tofranil) [] Maprotiline (Ludiomil) [] Nortriptiline (Pamelor) [] Protriptyline (Vivactil) [] Trimipramine (Surmontil) MAOI: [] Phenelzine (Nardil) [] Selegiline (Emsam) [] Tranylcypromine (Parnate) Atypicals: [] Bupropion (Wellbutrin) [] Mirtazapine (Remeron) [] Nefazodone (Serzone) [] Trazodone [] Vilazodone (Viibryd) [] Vortioxetine (Trintellix) Anti-Hypertensives: FLORENTINO Inhibitors: [] Benazepril (Lotensin) [] Captopril [] Enalapril (Vasotec) [] Fosinopril [] Lisinopril (Prinivil) [] Moexipril [] Perindopril (Aceon) [] Quinapril (Accupril) [] Ramipril (Altace) [] Trandolapril (Mavik) Alpha-1 Blockers [] Doxazosin [] Prazosin [] Tetrazosin Angiotensin II Receptor Blockers: [] Azilsartan (Edarbi) [] Candesartan (Atacand) [] Eprosartan [] Irbesartan (Avapro) [] Losartan (Cozaar) [] Olmesartan (Benicar) [] Telmisartan (Misardis) [] Valsartan (Diovan) Beta Blockers [] Acebutolol (Sectral) [] Atenolol (Tenormin) [] Bisoprolol (Zebeta) [] Metoprolol (Lopressor) [] Nadolol (Cogard) [] Nebivolol (Bystolic) [x] Propranolol (Inderal) [] Timolol Calcium Channel Blockers: [] Amlodipine (Norvasc) [] Bepridil (Vascor) [] Diltiazem (Cardiazem) [] Felodipine (Plendil) [] Nicardipine (Cardene) [] Nifedipine (Procardia) [] Nisoldipine (Sular) [] Verapamil Diuretics: [] Furosemide (Lasix) [] Hydrochlorothiazide (Microzide) [] Spironolactone (Aldactone) Carbonic Anhydrase Inhibitors: [] Acetazolamide (Diamox) [] Methazolamide Anti-seizure: [] Carbamazepine (Tegretol) [] Gabapentin (Neurontin) [] Lamotrigine (Lamictal) [] Levetiracetam (Keppra) [] Oxcarbazepine (Trileptal) [] Phenobarbital [] Phenytoin (Dilantin) [] Pregabalin (Lyrica) [] Primidone [] Sodium Valproate (Depakote) [x] Topiramate (Topamax) [] Zonisamide (Zonegran) Monoclonal Antibodies: [x] Aimovig Effective - start 05/26/20 [] Ajovy [] Emgality [] Vyepti Toxins: [x] OnabotulinumtoxinA (Botox) Gepants [] Ubrelvy (ubrogepant) [x] Nurtec (rimegepant) [] Qulipta (atogepant) Ditans - high-affinity 5-HT1F receptor agonist [] Reyvow (lasmiditan) Supplements: [] Butterbur [] Coenzyme Q10 [] Feverfew [] Magnesium [] Melatonin [] Migrelief (B2, mag, feverfew) [] Vitamin B2 (riboflavin) Other: [] Boswellia Karon [] Buspirone (Buspar) [] Doxycycline [] Lidocaine patch (Lidoderm) [] Cranston [] Memantine (Namenda) [] Montelukast (Singulair) [] Naloxone [] Oxygen Triptans oral: [] Almotriptan (Axert) [] Eletriptan (Relpax) [] Frovatriptan (Frova) [x] Naratriptan (Amerge) [x] Rizatriptan (Maxalt) SE: drowsy [x] Sumatriptan (Imitrex) SE: dizzy, drowsy [] Sumatriptan/Naproxen (Treximet) [] Zolmitriptan (Zomig) Triptans nasal: [] Sumatriptan (Onzetra) nasal powder [] Sumatriptan (Imitrex) nasal spray [] Sumatriptan (Tosymra) nasal spray [] Zomig nasal spray Triptans injectable: [] Sumatriptan (Imitrex) solution 3 mg, 4 mg, 6 mg Ergotamines oral: [] Ergotamine/caffeine tab (Cafergot) [] Methergine [] Methylsergide (Sansert) Ergotamines nasal: [] Dihydroergotamine nasal spray (Migranal) Ergotamine Injectable: [] Dihydroergotamine solution for injection (DHE-45) Ergotamine suppository: [] Ergotamine/caffeine suppository (Migergot) NSAIDS: [] Aspirin [] Celecoxib (Celebrex) [] Diclofenac potassium [] Flurbiprofen [x] Ibuprofen (Advil) [] Indomethacin [] Ketoprofen [] Ketorolac (Toradol) [] Meloxicam (Mobic) [] Nabumetone [] Naproxen sodium (Aleve) Anti-Histamines: [] Cyproheptadine (Periactin) [] Diphenhydramine (Benadryl) [] Hydroxyzine (Vistaril/Atarax) Anti-emetics: [] Aprepitant (Emend) [] Chlorpromazine (Thorazine) [] Granisetron [] Metoclopramide (Reglan) [] Meclizine (Bonine) [] Ondansetron (Zofran) [] Prochlorperazine (compazine) [x] Promethazine (Phenergan) [] Scopolamine patch Muscle relaxers: [] Baclofen (lioresal) [] Cyclobenzaprine (flexeril) [] Metaxalone (skelaxin) [] Methocarbamol (robaxin) [] Tizanidine (zanaflex) Steroids: [] Dexamethasone (Decadron) [] Methylprednisolone (Medrol) [] Prednisone [] Triamcinolone (Kenalog) Procedures: [] Auriculotemporal blocks [] Lumbar puncture [] Occipital nerve blocks [] Sphenopalatine ganglion blocks [] Supraorbital blocks [] Trigger point injections Neuromodulation: [] Cefaly [] nVNS/Gammacore [] Spring TMS [] Nerivio Non-pharmacologic Tx [] Acupuncture [] Acupressure [] Biofeedback [] Credit Rating Checker [] Cognitive Behavioral Therapy [] Craniosacral therapy [] Massage therapy [] Physical therapy Benzodiazepines: [] Alprazolam (Xanax) [] Chlordiazepoxide (Librium) [] Clonazepam (Klonopin) [] Diazepam (Valium) [] Lorazepam (Ativan) [] Temazepam (Restoril) Combination/Other Analgesics: [] Acetaminophen (Tylenol) [] Acetaminophen/aspirin/caffeine (Excedrin/Pamprin) [] Acetaminophen/caffeine/pyrilamine maleate (Midol) [] Acetaminophen/dichloralphenazone/ isometheptene (Midrin) Opioids/Narcotics/Controlled Substances: [] Acetaminophen/Codeine (Tylenol #3) [] Acetaminophen/Hydrocodone (Bairoil/Vicodin) [] Acetaminophen/Oxycodone (Percocet) [] Butalbital/aspirin/caffeine/codeine (Fiorinal with codeine) [] Butalbital/Aspirin/Caffeine (Fiorinal) [] Butalbital/acetaminophen/caffeine (Fioricet) [] Butorphanol (Ketamine/Stadol) [] Carisoprodol (Soma) [] Fentanyl [] Hydrocodone [] Hydromorphone (Dilaudid) [] Marijuana [] Morphine (MS Contin) [x] Oxycodone [x] Tramadol (Ultram) [] Zolpidem (Ambien) documented in this encounter Plan of Treatment Upcoming Encounters Date Type Department Care Team (Late st Contact Info) Description 05/02/2024 2:00 PM EST Procedure visit Neurology at [address] [phone] Aaron Ruiz APRN [facility] [address] 06/08/2024 10:30 AM EST TH Visit (TeleHealth) Neurology at [address] [phone] Kayy Espinosa APRN [facility] [address] documented as of this encounter Visit Diagnoses Diagnosis Chronic migraine with and without aura, with intractable migraine, so stated, with status migrainosus Chronic migraine without aura, with intractable migraine, so stated, with status migrainosus documented in this encounter Care Teams Crab Fisherman Relationship Specialty Start Date End Date Belen Bravo PA [address] [place] [address] [place] [id number] PCP - General Internal Medicine 04/05/19 documented as of this encounter
--- OUTSIDE RECORDS SUMMARY | 2024-02-10 01:54 | XMS_ITS | Encounter Summary ---
Author Organization [facility] [place] [address] Care Team Providers Care Jitterbug Operator Name Role Phone Belen Bravo Primary Care Provider + Reason for Visit * High Dollar Medication (Routine) - Authorized Specialty Diagnoses / Procedures Referred By Cadence minaya Referred To Contact Neurology Diagnoses Chronic migraine without aura with status migrainosus, not intractable Procedures Onabotulinumtoxin A (BOTOX) Authorizations Request (IN CLINIC) TC ONABOTULINUMTOXINA, 1 UNIT, INJECTION Kayy Espinosa KNOWLEDGE ENGINEER [facility] [place] [address] Kayy Espinosa [facility] [place] [address] Referral ID Status Reason Start Date Expiration Date Visits Requested Visits Authorized [id number] Authorized Consult, Test & Treat 04/27/2023 04/26/2024 5 8 Encounter Details Date Type Department Care Team (Late st Contact Info) Description 05/11/2023 3:30 PM EST Office Visit Neurology at [facility] [address] [place] [address] Olesya Carroll PA [facility] [address] Chronic migraine without aura with status migrainosus, [...] as of this encounter Procedure Notes * Olesya Carroll PA - 05/11/2023 3:30 PM ESTAssociated Order(s): CHEMODENERVATION, MEDICAL Neurology Procedure note Date: 05/11/2023 Patient: Sharmin Mayo : 1995 Procedure: Botox injections (PREEMPT protocol) - every 12 weeks Indications: Chronic Migraine Date Procedure MIDAS 05/28/21 Botox #1 115, 10/25, 07/21/22 Botox - 155 u - Guillaume 25, 08/25, 11/17/22 Botox - 155 u - Francisca 11, 09/25, 02/09/23 Botox - 155 u - Francisca 26, 08/25, 05/11/23 Botox - 155u - KG 20, 07/26, Patient Reported: 05/11/2023 3:09 PM MIDAS Responses Days missed school/work 2 Days productivity at work/school reduced 10 Days did not do household work 2 Days productivity related to housework reduced 5 Days missed family, social or leisure activities 1 Days had headache 25 Pain scale 4 MIDAS Score 20 (MIDAS grase III, moderate disability) MIDAS Adjusted Score 20 Risk and benefits were explained to the patient. Written consent was obtained: 05/11/23 The patient is not or planning on getting in the next 4 months PROCEDURE Time out was preformed OnabotulinumtoxinA was [...] units divided between 2 sites in the child welfare worker muscles, 5 units into 1 site in the procerus muscle, 40 units divided between 8 sites in the temporalis muscles, 30 units divided between 6 sites in the occipital region, 20 units divided between 4 sites in the cervicalparaspinal musculature, and 30 units divided between 6 sites in the trapezii. Total units used= 155. Total injection sites=31. Patient was injected with 155 units and 45 units were wasted/discarded. The patient tolerated the procedure without any immediate complications. [facility] documented in this encounter Plan of Treatment Upcoming Encounters Date Type Department Care Team (Late st Contact Info) Description 05/02/2024 2:00 PM EST Procedure visit Neurology at [address] [phone] Aaron Ruiz [facility] [place] [address] 06/08/2024 10:30 AM EST TH Visit (TeleHealth) Neurology at [address] [address] [facility] [place] [address] documented as of this encounter Procedures Procedure Name Priority Date/Time Associated Diagnosis Comments CHEMODENERVATION, MEDICAL Routine 05/11/2023 3:30 PM EST documented in this encounter Results * Chemodenervation, medical (05/11/2023 3:30 PM EST) Narrative Olesya Carroll PA - 05/11/2023 3:30 PM EST Olesya Carroll PA ? 05/11/2023 ??3:32 PM Neurology Procedure note Date: 05/11/2023 Patient: Sharmin Mayo : ??1995 Procedure: Botox injections (PREEMPT protocol) - ??every 12 weeks Indications: Chronic Migraine Date ??Procedure ?? MIDAS 05/28/21 Botox #1 115, 10/25, 07/21/22 Botox - 155 u - Guillaume 25, 08/25, 11/17/22 Botox - 155 u - Francisca 11, 09/25, 02/09/23 Botox - 155 u - Francisca 26, 08/25, 05/11/23 ??Botox - 155u - KG 20, 07/26, Patient Reported: ??05/11/2023 ??3:09 PM MIDAS Responses Days missed school/work 2 Days productivity at work/school reduced 10 Days did not do household work 2 Days productivity related to housework reduced 5 Days missed family, social or leisure activities 1 Days had headache 25 Pain scale ??4 MIDAS Score 20 (MIDAS grase III, moderate disability) MIDAS Adjusted Score 20 Risk and benefits were explained to the patient. Written consent was obtained: 05/11/23 The patient is not or planning on getting in the next 4 months PROCEDURE Time out was preformed OnabotulinumtoxinA was [...] units divided between 2 sites in the child welfare worker muscles, 5 units into 1 site in the procerus muscle, 40 units divided between 8 sites in the temporalis muscles, 30 units divided between 6 sites in the occipital region, 20 units divided between 4 sites in the cervical paraspinal musculature, and 30 units divided between 6 sites in the trapezii. Total units used= 155. Total injection sites=31. Patient was injected with 155 units and 45 units were wasted/discarded. The patient tolerated the procedure without any immediate complications. [facility] Eddie Jordan MD PROCEDURE/MINOR SURG ICAL ORDERABLES documented in this encounter Visit Diagnoses Diagnosis Chronic migraine without aura with status migrainosus, not intractable Chronic migraine without aura, without mention of intractable migraine with status migrainosus documented in this encounter Administered Medications Inactive Administered Medications - up to 3 most recent administrations Medication Order MAR Action Action Date Dose Rate Site onabotulinumtoxinA (Botox) injection 200 unit 155 Units, Intramuscular, ONCE, On Tue05/11/23 at 1545, 1 dose Given 05/11/2023 3:31 PM EST 155 Units documented in this encounter Care Teams Jitterbug Operator Relationship Specialty Start Date End Date Belen Bravo PA [address] [place] [id number] PCP - General Internal Medicine 04/05/19 documented as of this encounter
--- OUTSIDE RECORDS SUMMARY | 2024-02-10 01:54 | XMS_ITS | Encounter Summary ---
[place] [address] Care Team Providers Care Boat Fueler Name Role Phone Belen Bravo Primary Care Provider + Reason for Visit * Reason Onset Date Comments Prior Authorization 11/05/2022 [facility] Encounter Details Date Type Department Care Team (Late st Contact Info) Description 11/05/2022 Telephone Neurology at [address] [phone] Sakshi Hughes CMA Prior Authorization ([facility]) Social History Tobacco Use Types Packs/Day Years [...] encounter Miscellaneous Notes * Telephone Encounter - Nanda Méndez CMA - 11/08/2022 3:56 PM EDTSummary: Approval - [facility] Submitted Date: Submitted Date: 11/05/2022 Next Review Date: Next Review Date: 11/08/2023 PA Outcome: PA Approval Medication Prior Authorization Approval Approved: [facility]imegepant [facility] 75 mg Tablet, Rapid Dissolve Start Date: 11/08/2022 End Date: 11/08/2023 Case/Reference #: [id number] Approval Letter will be scanned into media once received. * Telephone Encounter - Sakshi Hughes CMA - 11/05/2022 7:51 AM EDT Medication Prior Authorization Patient: Sharmin Mayo Patient : 1995 Insurance Company: [employer] Sent via: [employer] portal Prior Auth (EOC) ID: [id number] Physician: Kayy Espinosa APRN Medication Requested: rimegepant (Nurtec ODT) 75 mg Tablet, Rapid Dissolve Frequency/Sig: Take 1 tablet by mouth daily as needed (migraine). Disp: 8 Refills: 5 Currently taking: yes If yes, how lon03/2022 Diagnosis for this medication: Chronic migraine without aura, with intractable migraine, so stated, with status migrainosus G43.711 Prior medications trialed in this patient: Medication: Amitriptyline Approx Dates: 07/2010-09/2010 Outcome/Adverse Reactions: Inadequate response Medication: Aimovig Approx Dates: 2020-current Outcome/Adverse Reactions: Inadequate response Medication: Ibuprofen Approx Dates: 07/2010-12/2020 Outcome/Adverse Reactions: Inadequate response Medication: Naratriptan Approx Dates: 08/2020-01/2021 Outcome/Adverse Reactions: inadequate response Medication: Botox Approx Dates: 2020-current Outcome/Adverse Reactions: inadequate response Medication: Rizatriptan Approx Dates: 05/2020-01/2021 Outcome/Adverse Reactions: inadequate response Medication: Sumatriptan Approx Dates: 2019-current Outcome/Adverse Reactions: inadequate response Medication: Topiramate Approx Dates: Outcome/Adverse Reactions: inadequate response Medications Tried ([x] checked have been tried [...] [] Doxycycline [] Lidocaine patch (Lidoderm) [] [place] [] Memantine (Namenda) [] Montelukast (Singulair) [] [...] [] Acupuncture [] Acupressure [] Biofeedback [] Operator Coating Furnace [] Cognitive Behavioral Therapy [] Craniosacral therapy [] Massage therapy [] Physical therapy Benzodiazepines: [] Alprazolam (Xanax) [] Chlordiazepoxide (Librium) [] Clonazepam (Klonopin) [] Diazepam (Valium) [] Lorazepam (Ativan) [] Temazepam (Restoril) Combination/Other Analgesics: [] Acetaminophen (Tylenol) [] Acetaminophen/aspirin/caffeine (Excedrin/Pamprin) [] Acetaminophen/caffeine/pyrilamine maleate (Midol) [] Acetaminophen/dichloralphenazone/ isometheptene (Midrin) Opioids/Narcotics/Controlled Substances: [] Acetaminophen/Codeine (Tylenol #3) [] Acetaminophen/Hydrocodone ([place]and[place]/Vicodin) [] Acetaminophen/Oxycodone (Percocet) [] Butalbital/aspirin/caffeine/codeine (Fiorinal with codeine) [] Butalbital/Aspirin/Caffeine (Fiorinal) [] Butalbital/acetaminophen/caffeine (Fioricet) [] Butorphanol (Ketamine/Stadol) [] Carisoprodol (Soma) [] Fentanyl [] Hydrocodone [] Hydromorphone (Dilaudid) [] Marijuana [] Morphine (MS Contin) [x] Oxycodone [x] Tramadol (Ultram) [] Zolpidem (Ambien) Additional Notes: 07/21/2022 office note-attached to HAIDER Sharmin first sought treatment for her history of headaches since age 13 [address] Madyson Lazaro in pediatric neurology at [facility] once in 2010 and once in 2013. During this time she had continuous chronic migraine. In 2018 Sharmin was seen by Neurology in [place] and started on lower dose of Aimovig. [...] Continue Botox Continue Supplementation Restart Sumatriptan [facility] Interval Events: - Overall Sharmin's headaches are under relatively good control with [...] IV, severe disability) MIDAS Adjusted Score 25 MIDAS History Date JONES Pain JONES days Score Comments 01/19/202109/25 45 69 10/15/2109/25 70 130 ABHIJIT - Francisca 04/15/202208/25 4090 80 07/21/2208/25 25 Current preventative regimen and frequency: Aimovig Botox Current abortive regimen and frequency: Sumatriptan Sharmin has had an overall reduction of [...] for Nurtec 75 mg which has been approved Synergy for BTX + MAB is established: 1. Zandra AM, Joe BM, Edwin ZelayaD, Miley A, Vickey G, Zay L, Gerhard Ramos A. Real-World Evidence for Control of Chronic Migraine Patients Receiving CGRP Monoclonal Antibody TherapyAdded to OnabotulinumtoxinA: A Retrospective Chart Review. Pain Ther. 2020Aug 06. doi: 10.1007/s401 57-485-52718-x. Epub ahead of print. PMID: 73545327. 2. Negro F, Abdi C, Harrison RB, Ina S. Efficacy and Tolerability of Calcitonin Jrhe-GhytgtuXpfdyix-Xkdxfsbn Monoclonal Antibody Medications as Add- on Therapy to OnabotulinumtoxinA in Patients with Chronic Migraine. Pain Med. 2020Nov 21;22(8):1949-8041. doi: 10.1093/pm/tpcx697. PMID: 52108231. 3. Familia L, TP, Ashley H, Ashley M, Lew R. Dual Therapy With Anti-CGRP Monoclonal Antibodies and Botulinum Toxin for Migraine Prevention: Is There a Rationale? Headache. 2020 Sep;60(6):7795-4734. doi: 10.1111/head.81772. Epub 2019September 05. PMID: 64030434. For prevention: Consider Magnesium 500mg, B2 (Riboflavin) 400mg, CoQ10 300mg Continue Aimovig 140 mg/mL auto injector Continue Botox For acute JONES Nurtec 75 mg OR Sumatriptan 100 mg Medications Tried ([x] checked have been tried [...] [] Doxycycline [] Lidocaine patch (Lidoderm) [] [place] [] Memantine (Namenda) [] Montelukast (Singulair) [] [...] [] Acupuncture [] Acupressure [] Biofeedback [] Operator Coating Furnace [] Cognitive Behavioral Therapy [] Craniosacral therapy [] Massage therapy [] Physical therapy Benzodiazepines: [] Alprazolam (Xanax) [] Chlordiazepoxide (Librium) [] Clonazepam (Klonopin) [] Diazepam (Valium) [] Lorazepam (Ativan) [] Temazepam (Restoril) Combination/Other Analgesics: [] Acetaminophen (Tylenol) [] Acetaminophen/aspirin/caffeine (Excedrin/Pamprin) [] Acetaminophen/caffeine/pyrilamine maleate (Midol) [] Acetaminophen/dichloralphenazone/ isometheptene (Midrin) Opioids/Narcotics/Controlled Substances: [] Acetaminophen/Codeine (Tylenol #3) [] Acetaminophen/Hydrocodone ([place]and[place]/Vicodin) [] Acetaminophen/Oxycodone (Percocet) [] Butalbital/aspirin/caffeine/codeine (Fiorinal with [...] 2:00 PM EST Procedure visit Neurology at [facility] [address] [place] [address] Aaron Ruiz APRN [facility] [place] [address] 06/08/2024 10:30 AM EST TH Visit (TeleHealth) Neurology at [address] [place] [address] Kayy Espinosa APRN [facility] [place] [address] documented as of this encounter Visit Diagnoses Not on filedocumented in this encounter Care Teams Boat Fueler Relationship Specialty Start Date End Date Belen Bravo PA [address] [place] [address] [place] [address] PCP - General Internal Medicine 04/05/19 documented as of this encounter
--- OUTSIDE RECORDS SUMMARY | 2024-02-10 01:54 | XMS_ITS | Encounter Summary ---
Author Organization [facility] [place] [address] Care Team Providers Care Library Media Technician Name Role Phone Belen Bravo Primary Care Provider + Reason for Visit * Reason Onset Date Comments Reminder Appointment 11/25/2022 Encounter Details Date Type Department Care Team (Late st Contact Info) Description 11/25/2022 Telephone Neurology at [address] [address] Kayy Espinosa, DULITE MACHINE [facility] [place] [address] Reminder Appointment Social History Tobacco Use Types Packs/Day [...] encounter Miscellaneous Notes * Telephone Encounter - Raissa Farrell CMA - 11/25/2022 11:32 AM EDT Unable to reach this patient by phone to review their medications and allergies prior to their upcoming tele-appointment with the Neurology provider. No message left. documented in this encounter Plan of Treatment Upcoming Encounters Date Type Department Care Team (Late st Contact Info) Description 05/02/2024 2:00 PM EST Procedure visit Neurology at [address] [address] Aaron Ruiz, [facility] [place] [address] 06/08/2024 10:30 AM EST TH Visit (TeleHealth) Neurology at [address] [address] Kayy Espinosa, [facility] [place] [address] documented as of this encounter Visit Diagnoses Not on filedocumented in this encounter Care Teams Library Media Technician Relationship Specialty Start Date End Date Belen Bravo PA [address] [place] [address] [place] [address] PCP - General Internal Medicine 04/05/19 documented as of this encounter
--- OUTSIDE RECORDS SUMMARY | 2024-02-10 01:54 | XMS_ITS | Encounter Summary ---
Author Organization [facility] [place] [address] Care Team Providers Care Branch Billing Payroll Clerk Name Role Phone Belen Bravo Primary Care Provider + Reason for Visit * High Dollar Medication (Routine) - Authorized Specialty Diagnoses / Procedures Referred By Cadence minaya Referred To Contact Neurology Diagnoses Chronic migraine without aura with status migrainosus, not intractable Procedures Onabotulinumtoxin A (BOTOX) Authorizations Request (IN CLINIC) TC ONABOTULINUMTOXINA, 1 UNIT, INJECTION Kayy Espinosa [facility] [place] [address] [facility] [place] [address] Referral ID Status Reason Start Date Expiration Date Visits Requested Visits Authorized [id number] Authorized Consult, Test & Treat 04/27/2023 04/26/2024 5 8 Encounter Details Date Type Department Care Team (Late st Contact Info) Description 08/15/2023 3:00 PM EDT Office Visit Neurology at [facility] [address] [place] [address] Kayy Espinosa OVEN BUILDER [facility] [place] [address] Chronic migraine without aura with status migrainosus, [...] * Patient Instructions* Kayy Espinosa APRN - 08/15/2023 3:00 PM EDT Images from the original note were not included. CHECK OUT INSTRUCTIONS: - After this appointment if you have not heard from our team within 5 business days to schedule your next Botox, please call the office at . - If you have imaging ordered at [facility], please call directly: . Kayy Espinosa (she/her) FELICITA, ANNA MARIE [facility] Department of Neurology Headache Clinic Botox After [...] Procedure Notes * Kayy Espinosa APRN - 08/15/2023 3:00 PM EDTAssociated Order(s): CHEMODENERVATION, MEDICAL Neurology Procedure note Date: 08/15/2023 Patient: Sharmin Mayo : 1995 AUTH STATUS: APPROVED - BOTOX INS HAS LAST NAME SCAR Insurance Verified: [employer] Insurance Effective To/From Dates: 04/18/23 TO PRESENT Third Constitution Party Vendor: SHEA Authorization Number: [id number] Validity Dates: 07/28/2023-07/27/2024 CPT/J-Code(s): J0585, 16594 ICD-10/Description: G43.711 CHRONIC MIGRAINE Description of Procedure: BOTOX, ADMIN Ordering Provider: JOSHUA Garcia (npi: [id number]) How Many Units: Up to 200 units q 12 rylnv=984 UNITS/4 VISITS Counted Units: 08/15/2023 IS 1 OF 4 ALLOWED Buy and Bill?: YES If no why?: na Call Reference Number: SHEA Spoke With: NA Patient Class Change Requirements: SHEA Notes: AUTH APPROVED VIA [employer] INDEXED FAX. UPDATED SLA. Procedure: Botox injections (PREEMPT protocol) - every [...] - 175 u - Francisca 15, 09/25, Patient Reported: 08/15/2023 2:41 PM MIDAS Responses Days missed school/work 2 Days productivity at work/school reduced 3 Days did not do household work 5 Days productivity related to housework reduced 4 Days missed family, social or leisure activities 1 Days had headache 10 Pain scale 6 MIDAS Score 15 (MIDAS grase III, moderate disability) MIDAS Adjusted Score 15 Risk and benefits were explained to the [...] units divided between 2 sites in the real estate specialist muscles, 5 units into 1 site in [...] Based on the PREEMPT Clinical Program. Headache 2010;50:9020-2659. Kayy Espinosa APRN [facility] documented in this encounter Plan of Treatment Upcoming Encounters Date Type Department Care Team (Late st Contact Info) Description 05/02/2024 2:00 PM EST Procedure visit Neurology at [address] [phone] Aaron Ruiz APRN [facility] [address] 06/08/2024 10:30 AM EST TH Visit (TeleHealth) Neurology at [address] [phone] Kayy Espinosa APRN [facility] [place] [address] documented as of this encounter Procedures Procedure Name Priority Date/Time Associated Diagnosis Comments CHEMODENERVATION, MEDICAL Routine 08/15/2023 3:00 PM EDT documented in this encounter Results * Chemodenervation, medical (08/15/2023 3:00 PM EDT) Narrative Kayy Espinosa, OVEN BUILDER - 08/15/2023 3:00 PM EDT Kayy Espinosa, OVEN BUILDER ? 08/15/2023 ??2:59 PM Neurology Procedure note Date: 08/15/2023 Patient: Sharmin Mayo : ??1995 AUTH STATUS: APPROVED - BOTOX ??INS HAS LAST NAME SCAR Insurance Verified: [employer] Insurance Effective To/From Dates: 04/18/23 TO PRESENT Third Constitution Party Vendor: SHEA Authorization Number: [id number] Validity Dates: 07/28/2023-07/27/2024 CPT/J-Code(s): J0585, 48168 ICD-10/Description: G43.711 CHRONIC MIGRAINE Description of Procedure: BOTOX, ADMIN Ordering Provider: JOSHUA Garcia (npi: [id number]) How Many Units: Up to 200 units q 12 mrndu=945 UNITS/4 VISITS Counted Units: 08/15/2023 IS 1 OF 4 ALLOWED Buy and Bill?: YES If no why?: shea Call Reference Number: SHEA Spoke With: SHEA Patient Class Change Requirements: SHEA Notes: AUTH APPROVED VIA [employer] INDEXED FAX. UPDATED SLA. Procedure: Botox injections (PREEMPT protocol) - ??every 12 weeks Indications: Chronic Migraine Date ??Procedure ?? MIDAS 05/28/21 Botox #1 115, 10/25, 07/21/22 Botox - 155 u - Guillaume , 08/25, 11/17/22 Botox - 155 u - Francisca 11, 09/25, 02/09/23 Botox - 155 u - Francisca 26, 08/25, 05/11/23 ??Botox - 155u - KG 20, 07/26, 08/15/23 Botox - 175 u - Francisca 15, 09/25, Patient Reported: ??08/15/2023 ??2:41 PM MIDAS Responses Days missed school/work 2 Days productivity at work/school reduced 3 Days did not do household work 5 Days productivity related to housework reduced 4 Days missed family, social or leisure activities 1 Days had headache 10 Pain scale ??6 MIDAS Score 15 (MIDAS grase III, moderate disability) MIDAS Adjusted Score 15 Risk and benefits were explained to the [...] units divided between 2 sites in the real estate specialist muscles, 5 units into 1 site in [...] Based on the PREEMPT Clinical Program. Headache 2010;50:9008-1216. Kayy Espinosa APRN [facility] Neurology [facility] Kayy Espinosa APRN PROCEDURE/MINOR [...] 200 Units 200 Units, Intramuscular, ONCE, On 08/15/23 at 1500, 1 dose Given 08/15/2023 2:57 PM EDT 175 Units documented in this encounter Care Teams Branch Billing Payroll Clerk Relationship Specialty Start Date End Date Belen Bravo PA [address] [place] [address] [place] [address] PCP - General Internal Medicine 04/05/19 documented as of this encounter
--- OUTSIDE RECORDS SUMMARY | 2024-02-10 01:54 | XMS_ITS | Encounter Summary ---
Author Organization [facility] [place] [address] Care Team Providers Care Staff Development Educator Name Role Phone Belen Bravo Primary Care Provider + Encounter Details Date Type Department Care Team (Latest Contact Info) Description 11/17/2022 Travel Social History Tobacco Use Types Packs/Day [...] 2:00 PM EST Procedure visit Neurology at [address] [address] Aaron Ruiz [facility] [place] [address] 06/08/2024 10:30 AM EST TH Visit (TeleHealth) Neurology at [address] [address] Kayy Espinosa [facility] [place] [address] documented as of this encounter Visit Diagnoses Not on filedocumented in this encounter Care Teams Staff Development Educator Relationship Specialty Start Date End Date Belen Bravo PA [address] [place] [address] [place] [address] PCP - General Internal Medicine 04/05/19 documented as of this encounter
--- OUTSIDE RECORDS SUMMARY | 2024-02-10 01:54 | XMS_ITS | Encounter Summary ---
Author Organization [facility] [place] [address] Care Team Providers Care Cotton Seed Culler Name Role Phone Belen Bravo Primary Care Provider + Encounter Details Date Type Department Care Team (Latest Contact Info) Description 06/06/2023 8:00 AM EST TH Visit (TeleHealth) Neurology at [address] [address] Kayy Espinosa, COIL BUILDER [facility] [place] [address] Chronic migraine without aura with status migrainosus, [...] encounter Patient Instructions * Patient Instructions* Kayy Espinosa, FELICITA - 06/06/2023 8:00 AM EST Prevention: Continue Botox + Aimovig Abortive/rescue treatment: Continue Nurtec Take rescue treatment at first sign of headache Any use of Tylenol, NSAIDS (Ibuprofen, Aleve, Advil etc), combination analgesics (Excedrin etc), ortriptan medication (such as Sumatriptan), more than 2 days weekly can cause rebound headache, do not take these agents more than 2 days weekly (Nurtec does not cause rebound) Follow up in 1 yearr CHECK OUT INSTRUCTIONS: - After this appointment if you have not heard from our team within 5 business days to schedule a follow up visit, please call the office at . - If you have imaging ordered at [facility], please call directly: . Kayy Espinosa (she/her) FELICITA, ANNA MARIE [facility] Department of Neurology Headache Clinic Supplements for Consideration: Dose Frequency Comments / Side Effects Coenzyme Q10 100 mg 3 times daily Magnesium Up to 300-500 mg Twice daily Glycinate is preferred over Citrate or Oxide Magnesium may cause diarrhea. If this happens, it is okay to start at a lower dose (about 100 mg daily) and increase up to the full dose Riboflavin (Vitamin B2) 200 mg Twice daily Riboflavin will cause your urine to change color to bright yellow. This is not dangerous High doses of Vitamin B complex is not recommended documented in this encounter Progress Notes * Kayy Espinosa APRN - 06/06/2023 8:00 AM EST [facility] Telehealth Follow-Up Patient name: Sharmin Mayo Date of : 1995 PCP: HAIDER Alatorre Sharmin Mayo gave verbal consent for her Telehealth Visit. She/He/They understand that this visit will be billed to her/his insurance, similar to a clinic visit. Location at time of visit: [place] ID: Sharmin Mayo is a 28 y.o. female with a past medical history of chronic pain (neg rheum workup w/ neg or nl NANI, HLAB27, inflammatory markers) synthroid, and generalized anxiety disorder who is being followed for migraine with and without visual and speech aura Last Visit: 12/08/22 Prior seen by: Yoni Hudson MD on 01/19/2021 HPI: Please see ABHIJIT note dated 10/15/21 for full HPI Sharmin presented to Dr. Ivelisse Hudson for initial visit on 06/26/2019 for a history of headaches since age 13 that were continuous at the time. Since initial visit she has been placed back on Aimovig (s/ppregnancy), and started Botox. Aimovig started 05/26/2021, initially with 50% reduction in headachedays, now s/p >12 injections. Botox started 05/28/2021, now s/p >6 cycles, with a reduction of headache days from 70/90 to 25/90. Breakthrough migraines can occur during menses, causing missed work. Side effects to Sumatriptan and Naratriptan. Nurtec effective, able to take and not miss work. Interval Events: - Recent headache w/ cold, nauseous, dizzy, facial pressure - Getting breakthrough headaches first thing in the morning, sometimes needing Nurtec before work, which is effective - Breakthrough pattern consistent with menses - Nurtec ~3x during last cycle - Continuing with mild Aimovig wear off consistently 3-4 days prior to injection, headaches not severe, Botox wear off 2 weeks prior to next injection - Breakthrough headaches in occiput, retro orbital, frontalis - Started supplements - Not yet needed Zofran Patient Reported: 05/11/2023 3:09 PM MIDAS Responses Days missed school/work 2 Days productivity at work/school reduced 10 Days did not do household work 2 Days productivity related to housework reduced 5 Days missed family, social or leisure activities 1 Days had headache 25 Pain scale 4 MIDAS Score 20 (MIDAS grase III, moderate disability) MIDAS Adjusted Score 20 Medications: Current Outpatient Medications Medication Sig Dispense Refill Aimovig Autoinjector 140 mg/mL Auto-Injector INJECT THE CONTENTS OF ONE PEN (140 MG) SUBCUTANEOUSLYONCE EVERY 28 DAYS 1 mL 5 ondansetron (Zofran) 4 mg tablet Take 1 tablet by mouth daily as needed for Nausea. 20 tablet 5 rimegepant (Nurtec ODT) 75 mg Tablet, [...] 10 mg by mouth 2 times daily. levothyroxine (Synthroid) 25 mcg Tablet Take 25 mcg by mouth daily. No current facility-administered medications for this visit. Physical Exam: Constitutional: 28 y.o. female appears stated age, well nourished, [...] Assessment and plan: Sharmin Mayo is a 28 year old female presenting with migraine with and without visual and speechaura. Severe headache likely r/t illness and menses. This has resolved. I've asked Sharmin to keep trace if severe headaches should continue. Sharmin has had an overall reduction of headache days 70/90 to 25/90 on combination of Aimovig and Botox. We will add extra units per follow the pain for Botox wear off. Discussed the option of switching Aimovig for a different MAB, however unable to ensure similar or improved coverage. Headaches during wear off are mild. Breakthrough headaches occurring reliably with menses - Nurtec is helpful. Sharmin has not missed work since starting Nurtec PRN. Failed 3 triptans. Discussed continued avoidance of while on Botox and Aimovig. Synergy for BTX + MAB is established: 1. Zandra AM, Joe COLON, Edwin ZelayaD, Miley A, Vickey G, Zay L, Gerhard Ramos A. Real-World Evidence for Control of Chronic Migraine Patients Receiving CGRP Monoclonal Antibody TherapyAdded to OnabotulinumtoxinA: A Retrospective Chart Review. Pain Ther. 2020Aug 06. doi: 10.1007/s401 87-277-28538-x. Epub ahead of print. PMID: 91136465. 2. Negro F, Abdi C, Harrison RB, Ina S. Efficacy and Tolerability of Calcitonin Fome-OjkquctKlffmkw-Ijewcfgh Monoclonal Antibody Medications as Add- on Therapy to OnabotulinumtoxinA in Patients with Chronic Migraine. Pain Med. 2020Nov 21;22(8):2864-0066. doi: 10.1093/pm/hrsi184. PMID: 88590161. 3. Familia L, TP, Ashley H, Ashley M, Lew R. Dual Therapy With Anti-CGRP Monoclonal Antibodies and Botulinum Toxin for Migraine Prevention: Is There a Rationale? Headache. 2020 Sep;60(6):5319-2927. doi: 10.1111/head.25071. Epub 2019September 05. PMID: 36962729. Plan to see Sharmin Mayo for a follow- up visit in 1 year #Chronic migraine with and without aura Workup/Referrals/Recommendations - avoidance on Aimovig and Botox, current partner w/ vasectomy For prevention: Consider supplements Continue Aimovig 140 mg/mL auto injector Continue Botox - start extra units For acute JONES Nurtec 75 mg for mini prevention during menses Start Zofran Future considerations: Ajovy/Emgality Ubrelvy Please note that with a telehealth [...] Espinosa APRN Department of Neurology [facility] Medications Tried ([x] checked have been tried [...] [] Doxycycline [] Lidocaine patch (Lidoderm) [] Veyo [] Memantine (Namenda) [] Montelukast (Singulair) [] [...] [] Acupuncture [] Acupressure [] Biofeedback [] Shadowgraph Operator [] Cognitive Behavioral Therapy [] Craniosacral therapy [] Massage therapy [] Physical therapy Benzodiazepines: [] Alprazolam (Xanax) [] Chlordiazepoxide (Librium) [] Clonazepam (Klonopin) [] Diazepam (Valium) [] Lorazepam (Ativan) [] Temazepam (Restoril) Combination/Other Analgesics: [] Acetaminophen (Tylenol) [] Acetaminophen/aspirin/caffeine (Excedrin/Pamprin) [] Acetaminophen/caffeine/pyrilamine maleate (Midol) [] Acetaminophen/dichloralphenazone/ isometheptene (Midrin) Opioids/Narcotics/Controlled Substances: [] Acetaminophen/Codeine (Tylenol #3) [] Acetaminophen/Hydrocodone ([place]ak/Vicodin) [] Acetaminophen/Oxycodone (Percocet) [] Butalbital/aspirin/caffeine/codeine (Fiorinal with [...] 2:00 PM EST Procedure visit Neurology at [address] [address] Aaron Ruiz [facility] [place] [address] 06/08/2024 10:30 AM EST TH Visit (TeleHealth) Neurology at [address] [address] Kayy Espinosa [facility] [place] [address] documented as of this encounter Visit Diagnoses Diagnosis Chronic migraine without aura with status migrainosus, not intractable Chronic migraine without aura, without mention of intractable migraine with status migrainosus documented in this encounter Care Teams Cotton Seed Culler Relationship Specialty Start Date End Date Belen Bravo PA [address] [place] [address] [place] [address] PCP - General Internal Medicine 04/05/19 documented as of this encounter
--- OUTSIDE RECORDS SUMMARY | 2024-02-10 01:54 | XMS_ITS | Encounter Summary ---
Author Organization [facility] [place] [address] Care Team Providers Care Brokerage Purchase And Sale Clerk Name Role Phone Belen Bravo Primary Care Provider + Encounter Details Date Type Department Care Team (Late st Contact Info) Description 08/04/2022 Refill Neurology at [address] [address] Kayy Espinosa [facility] [place] [address] Social History Tobacco Use Types Packs/Day Years [...] 2:00 PM EST Procedure visit Neurology at [address] [address] Aaron Ruiz [facility] [address] 06/08/2024 10:30 AM EST TH Visit (TeleHealth) Neurology at [address] [address] Kayy Espinosa APRN [facility] [address] documented as of this encounter Visit Diagnoses Not on filedocumented in this encounter Care Teams Brokerage Purchase And Sale Clerk Relationship Specialty Start Date End Date Belen Bravo PA [address] [place] [address] [place] [address] PCP - General Internal Medicine 04/05/19 documented as of this encounter
--- OUTSIDE RECORDS SUMMARY | 2024-02-10 01:54 | XMS_ITS | Encounter Summary ---
Author Organization [facility] [address] Care Team Providers Care Carver And Checkerer Specials Name Role Phone Belen Bravo Primary Care Provider + Reason for Visit * Reason Onset Date Comments Reminder Appointment 06/01/2023 Encounter Details Date Type Department Care Team (Late st Contact Info) Description 06/01/2023 Telephone Neurology at [address] [address] Kayy Espinosa, B OPERATOR [facility] [place] [address] Reminder Appointment Social History Tobacco Use Types [...] Telephone Encounter - Raissa Farrell CMA - 06/01/2023 2:53 PM EST Unable to reach this patient by phone to review their medications and allergies prior to their upcoming tele-appointment with the Neurology provider. No message left. documented in this encounter Plan of Treatment Upcoming Encounters Date Type Department Care Team (Late st Contact Info) Description 05/02/2024 2:00 PM EST Procedure visit Neurology at [address] [address] Aaron Ruiz, [facility] [place] [address] 06/08/2024 10:30 AM EST TH Visit (TeleHealth) Neurology at [address] [address] Kayy Espinosa [facility] [place] [address] documented as of this encounter Visit Diagnoses Not on filedocumented in this encounter Care Teams Carver And Checkerer Specials Relationship Specialty Start Date End Date Belen Bravo PA [address] [place] [address] [place] [address] PCP - General Internal Medicine 04/05/19 documented as of this encounter
--- OUTSIDE RECORDS SUMMARY | 2024-02-10 01:54 | XMS_ITS | Encounter Summary ---
Author Organization [facility] [place] [address] Care Team Providers Care Sleeping Car Service Attendant Name Role Phone Belen Bravo Primary Care Provider + Encounter Details Date Type Department Care Team (Latest Contact Info) Description 08/25/2022 Travel Social History Tobacco Use Types Packs/Day [...] PM EST Procedure visit Neurology at [address] [address] Aaron Ruiz [facility] [place] [address] 06/08/2024 10:30 AM EST TH Visit (TeleHealth) Neurology at [address] [address] Kayy Espinosa [facility] [place] [address] documented as of this encounter Visit Diagnoses Not on filedocumented in this encounter Care Teams Sleeping Car Service Attendant Relationship Specialty Start Date End Date Belen Bravo PA [address] [place] [address] [place] [address] PCP - General Internal Medicine 04/05/19 documented as of this encounter
--- OUTSIDE RECORDS SUMMARY | 2024-02-10 01:54 | XMS_ITS | Encounter Summary ---
[place] [address] Care Team Providers Care Portfolio Director Name Role Phone Belen Bravo Primary Care Provider + Encounter Details Date Type Department Care Team (Late st Contact Info) Description 08/11/2023 Specialty [place] [phone] Tori Mo, [facility] Social History Tobacco Use Types Packs/Day Years [...] encounter Progress Notes * Tori Mo - 08/11/2023 9:50 AM EDT [facility] - Laundry Press Operator Assistance Outreach The Specialty Medication Access Team received a referral to work with Sharmin Mayo to complete an application to the automotive brake technician's assistance program for their specialty medication, Aimovig. The Specialty Medication Access Team left message for patient to provide the automotive brake technician application status. The [facility] will follow-up with the patient in 3 days to see if they need any additional guidance. Summary of conversations and next steps: CC: SENT PATIENT EDH MESSAGE IN REGARDS TO RE-ENROLLING INTO THE AIMOVIG COPAY CARD. PATIENT CAN ENROLL AGAIN BY CALLING [phone] OR BY GOING ONLINE TO [email or web address] Tori Rodriguez Chepe 08/11/23 9:50 AM * Chepe Tori A - 08/11/2023 9:50 AM EDT [facility] - Laundry Press Operator Assistance Outreach The Specialty Medication Access Team received a referral to work with Sharmin Mayo to complete an application to the automotive brake technician's assistance program for their specialty medication, Aimovig. The Specialty Medication Access Team left message for patient to provide the automotive brake technician application status. The [facility] will follow-up with the patient in 3 days to see if they need any additional guidance. Summary of conversations and next steps: (ATT #3) CC: LVM FOR PATIENT IN REGARDS TO RE-ENROLLING INTO THE AIMOVIG COPAY CARD. PATIENT CAN ENROLL AGAIN BY CALLING [phone] OR BY GOING ONLINE TO [email or web address] Tori Rodriguez Chepe 08/15/23 11:28 AM documented in this encounter Plan of Treatment Upcoming Encounters Date Type Department Care Team (Late st Contact Info) Description 05/02/2024 2:00 PM EST Procedure visit Neurology at [address] [address] Aaron Ruiz [facility] [place] [address] 06/08/2024 10:30 AM EST TH Visit (TeleHealth) Neurology at [address] [address] Kayy Espinosa APRN [facility] [place] [address] documented as of this encounter Visit Diagnoses Not on filedocumented in this encounter Care Teams Portfolio Director Relationship Specialty Start Date End Date Belen Bravo PA [address] [place] [address] [place] [address] PCP - General Internal Medicine 04/05/19 documented as of this encounter
--- OUTSIDE RECORDS SUMMARY | 2024-02-10 01:54 | XMS_ITS | Encounter Summary ---
Author Organization [facility] [place] [address] Care Team Providers Care Business Support Administrator Name Role Phone Belen Bravo Primary Care Provider + Reason for Visit * Reason Onset Date Comments TeleHealth 07/20/2022 Medication and a llergy review. Encounter Details Date Type Department Care Team (Late st Contact Info) Description 07/20/2022 Telephone Neurology at [address] [address] Kayy Espinosa, SENIOR BUSINESS DEVELOPMENT MANAGER [facility] [place] [address] TeleHealth (Medication and allergy review. ) Social History Tobacco Use Types Packs/Day Years [...] encounter Miscellaneous Notes * Telephone Encounter - Janny Sandoval RN - 07/20/2022 10:01 AM EDT Unable to reach this patient by phone to review their medications and allergies prior to their upcoming tele-appointment with the Neurology provider. No message left. documented in this encounter Plan of Treatment Upcoming Encounters Date Type Department Care Team (Late st Contact Info) Description 05/02/2024 2:00 PM EST Procedure visit Neurology at [address] [address] Aaron Ruiz [facility] [place] [address] 06/08/2024 10:30 AM EST TH Visit (TeleHealth) Neurology at [address] [address] Kayy Espinosa [facility] [place] [address] documented as of this encounter Visit Diagnoses Not on filedocumented in this encounter Care Teams Business Support Administrator Relationship Specialty Start Date End Date Belen Bravo PA [address] [place] [address] [place] [address] PCP - General Internal Medicine 04/05/19 documented as of this encounter
--- OUTSIDE RECORDS SUMMARY | 2024-02-10 01:54 | XMS_ITS | Encounter Summary ---
Author Organization [facility] [place] [address] Care Team Providers Care Toddler Nanny Name Role Phone Belen Bravo Primary Care Provider + Reason for Visit * Reason Onset Date Comments Bumped Appointment 03/21/2023 Encounter Details Date Type Department Care Team (Late st Contact Info) Description 03/21/2023 Telephone Neurology at [address] [address] Kayy Espinosa, FELICITA [facility] [place] [address] Bumped Appointment Social History Tobacco Use Types [...] * Telephone Encounter - Merle Yoon - 03/21/2023 3:44 PM EST Patient returning call to office to schedule Botox. This agent was able to connect patient with medical secretary teacher. * Telephone Encounter - Bianka Ramos - 03/21/2023 3:26 PM EST Scheduling Instructions Provider: Kayy Espinosa APRN Visit Type: Telehealth Follow Up (paste AMANDA Instructions or manually enter): Next Available Appt Note: 6 month telehealth follow up Additional Info Needed: Need to reschedule 05/06/2023 12 week Botox appointment & second Botox-Botox clinic * Telephone Encounter - Bianka Ramos - 03/21/2023 3:25 PM EST .callc documented in this encounter Plan of Treatment Upcoming Encounters Date Type Department Care Team (Late st Contact Info) Description 05/02/2024 2:00 PM EST Procedure visit Neurology at [address] [address] Aaron Ruiz [facility] [place] [address] 06/08/2024 10:30 AM EST TH Visit (TeleHealth) Neurology at [address] [address] [facility] [place] [address] documented as of this encounter Visit Diagnoses Not on filedocumented in this encounter Care Teams Toddler Nanny Relationship Specialty Start Date End Date Belen Bravo PA [address] [place] [address] [place] [address] PCP - General Internal Medicine 04/05/19 documented as of this encounter
--- OUTSIDE RECORDS SUMMARY | 2024-02-10 01:54 | XMS_ITS | Encounter Summary ---
Author Organization [facility] [place] [address] Care Team Providers Care Sephora Operations Consultant Name Role Phone Belen Bravo Primary Care Provider + Encounter Details Date Type Department Care Team (Latest Contact Info) Description 02/09/2023 Travel Social History Tobacco Use Types Packs/Day [...] 2:00 PM EST Procedure visit Neurology at [address] [address] Aaron Ruiz [facility] [place] [address] 06/08/2024 10:30 AM EST TH Visit (TeleHealth) Neurology at [address] [address] Kayy Espinosa [facility] [place] [address] documented as of this encounter Visit Diagnoses Not on filedocumented in this encounter Care Teams Sephora Operations Consultant Relationship Specialty Start Date End Date Belen Bravo PA [address] [place] [address] [place] [address] PCP - General Internal Medicine 04/05/19 documented as of this encounter
--- OUTSIDE RECORDS SUMMARY | 2024-02-10 01:54 | XMS_ITS | Clinical Summary ---
Author Organization [facility] Address [facility] [place] [address] Care Team Providers Care Remediation Project Engineer Name Role Phone Belen Bravo Primary Care Provider + Allergies No known active allergies Medications Medication Sig Dispensed Refills Start Date End Date Status levothyroxine (Synthroid) 25 mcg Tablet Take 25 mcg by mouth daily. Active sertraline (ZOLOFT) 100 mg Tablet Take 100 mg by mouth daily. Total dose 150 mg daily Active busPIRone (Buspar) 10 mg Tablet Take 10 mg by mouth 2 times daily. Active ondansetron (Zofran) 4 mg tablet Take 1 tablet by mouth daily as needed for Nausea. 20 tablet 5 12/08/2022 Active rimegepant (Nurtec ODT) 75 mg disintegrating tablet Take 1 tablet by mouth daily as needed (migraine). 8 tablet 11 06/06/2023 Active erenumab-aooe (Aimovig Autoinjector) 140 mg/mL Auto-Injector INJECT THE CONTENTS OF ONE PEN (140 MG) SUBCUTANEOUSLY ONCE EVERY 28 DAYS 1 mL 11 06/06/2023 Active Active Problems Problem Noted Date Diagnosed Date Migraine headache 06/27/2013 Leg numbness 10/21/2010 Migraine with aura, intractable, with status ector rainosus ROSIE (generalized anxiety disorder) Chronic pain Overview (11/26/2019): head, back, hips, knees, ankle Chronic migraine without aur a, with intractable migraine, so stated, with status migrainosus Encounters Date Type Department Care Team Description 11/14/2023 3:00 PM EDT Office Visit Neurology at [address] [address] Kayy Espinosa APRN Chronic migraine without aura with status migrainosus, not intractable 11/14/2023 Travel from Last 3 Months Immunizations Name Administration Dates Next Due Covid-19 Monovalent (Pfizer Comirnaty carl cap) 12yrs+ (0752-0025) 01/29/2021,06/11/2020,05/21/2020 Influenza Quadrivalent, Preservative Free 2021 Family History Medical History Relation Comments Migraines Father Relation Status Comments Father Social History Tobacco Use Types Packs/Day Years Used Date Smoking Tobacco: Never Smokeless Tobacco: Never Comments:no smokers Alcohol Use Standard Drinks/Week Comments Yes 0 (1 standard drink = 0.6 oz pur e alcohol) Occ Sex and Gender Information Value Date Recorded Sex Assigned at Not on file Gender Identity Not on file Sexual Orientation Not on file Last Filed Vital Signs Vital Sign Reading Time Taken Comments Blood Pressure 122/71 10/15/2021 3:22 PM EDT Pulse 73 10/15/2021 3:22 PM EDT Temperature 36.6 ??C (97.9 ??F) 05/26/2020 3:11 PM ES T Respiratory Rate 18 06/27/2013 1:44 PM EDT Oxygen Saturation - - Inhaled Oxygen Concentration - - Weight 52.2 kg (115 lb) 10/15/2021 3:22 PM EDT Height 162.6 cm (5' 4) 10/15/2021 3:22 PM EDT r eported Body Mass Index 19.74 10/15/2021 3:22 PM EDT Plan of Treatment Upcoming Encounters Date Type Department Care Team (Late st Contact Info) Description 05/02/2024 2:00 PM EST Procedure visit Neurology at [address] [phone] Aaron Ruiz APRN [facility] [place] [address] 06/08/2024 10:30 AM EST TH Visit (TeleHealth) Neurology at [address] [place] [address] Kayy Espinosa APRN [facility] [place] [address] Health Maintenance Due Date Last Done Comments HIV screen 2014 Hepatitis C Screening 2014 Hepatitis B vaccine (0-59 yrs) (1) 2015 Tetanus/Diphtheria/Pertussis Vaccines (1 - Tdap) 2015 PAP Smear 2017 Covid-19 Vaccine (4 - 2022-2 4 season) 2023 01/29/2021, 06/11/2020, 05/21/2020 Influenza (Flu) vaccine (1 o f 1 - Influenza standard series) 12/18/2023 01/14/2022 Procedures Procedure Name Priority Date/Time Associated Diagnosis Comments CHEMODENERVATION, MEDICAL Routine 11/14/2023 3:00 PM EDT from Last 3 Months Results * Chemodenervation, medical (11/14/2023 3:00 PM [...] units divided between 2 sites in the electronics instructor muscles, 5 units into 1 site in [...] Based on the PREEMPT Clinical Program. Headache 2010;50:6646-1036. Kayy Espinosa APRN [facility] Neurology Headache Clinic Kayy Espinosa APRN PROCEDURE/MINOR SURG ICAL ORDERABLES from Last 3 Months Care Teams Remediation Project Engineer Relationship Specialty Start Date End Date Belen Bravo PA [address] [place] [address] [phone] PCP - General Internal Medicine 04/05/19
--- OUTSIDE RECORDS SUMMARY | 2024-02-10 01:54 | XMS_ITS | Encounter Summary ---
Author Organization [facility] [place] [address] Care Team Providers Care Electrical And Instrumentation Mechanic Name Role Phone Belen Bravo Primary Care Provider + Reason for Visit * Reason Onset Date Comments Bumped Appointment 02/17/2023 Encounter Details Date Type Department Care Team (Late st Contact Info) Description 02/17/2023 Telephone Neurology at [address] [address] Kayy Espinosa, SUPPLY CHAIN LOGISTICS MANAGER [facility] [place] [address] Bumped Appointment Social History Tobacco Use Types [...] Notes * Telephone Encounter - Bianka Ramos Shorty - 02/17/2023 4:00 PM EDT Scheduling Instructions Provider: Olesya MALONEY or Aaron Ruiz SUPPLY CHAIN LOGISTICS MANAGER Visit Type: Botox (paste AMANDA Instructions or manually enter): Next Available-Reschedule 05/06/2023 Botox into 05/04 Botox Clinic. 05/04 is 12 weeks from 02/09 Botox Appt Note: 12 week Botox-Botox Clinic Additional Info Needed: Schedule second Botox on 07/27/2023 documented in this encounter Plan of Treatment Upcoming Encounters Date Type Department Care Team (Late st Contact Info) Description 05/02/2024 2:00 PM EST Procedure visit Neurology at [address] [address] Aaron Ruiz [facility] [place] [address] 06/08/2024 10:30 AM EST TH Visit (TeleHealth) Neurology at [address] [address] Kayy Espinosa [facility] [place] [address] documented as of this encounter Visit Diagnoses Not on filedocumented in this encounter Care Teams Electrical And Instrumentation Mechanic Relationship Specialty Start Date End Date Belen Bravo PA [address] [place] [address] [place] [id number] PCP - General Internal Medicine 04/05/19 documented as of this encounter
--- OUTSIDE RECORDS SUMMARY | 2024-02-10 01:54 | XMS_ITS | Encounter Summary ---
Author Organization [facility] [place] [address] Care Team Providers Care Lithopress Operator Name Role Phone Belen Bravo Primary [...] FACIAL/TRIGEM/CERV MUSC MIGRAINE BOTOX Kayy Espinosa APRN [facility] [place] [address] Kayy Espinosa FARM MANAGEMENT ADVISER [facility] [place] [address] Referral ID Status Reason Start Date Expiration Date V isits Requested Visits Authorized [id number] Closed Consult, Test & Treat 10/16/2021 11/18/2023 18 16 Encounter Details Date Type Department Care Team (Late st Contact Info) Description 11/17/2022 4:30 PM EDT Office Visit Neurology at [address] [phone] Kayy Espinosa APRN [facility] [place] [address] Chronic migraine without aura, with intractable migraine, [...] * Patient Instructions* Kayy Espinosa APRN - 11/17/2022 4:30 PM EDT Images from the original note were not included. CHECK OUT INSTRUCTIONS: After this appointment if you have not heard from our team within 3 business days, please call the office at [phone]. Botox After Care: Botox Injections don't require any recovery time. You can resume your typical activities. In order to encourage optimal treatment results, for 24 hours: - Avoid massage, touching, or pressure on the areas of injection (including tight hats) - Avoid rigorous exercise - Avoid facials, exfoliating scrubs Information About Botox for Chronic Migraine: documented in this encounter Procedure Notes * Kayy Espinosa APRN - 11/17/2022 4:30 PM EDTAssociated Order(s): CHEMODENERVATION, MEDICAL Neurology Procedure note Date: 11/17/2022 Patient: Sharmin Mayo : 1995 Procedure: Botox injections (PREEMPT protocol) - every 12 weeks Indications: Chronic Migraine [id number] Date Procedure MIDAS 05/28/21 Botox #1 115, 10/25, 07/21/22 Botox - 155 u - Guillaume 25, 08/25, 11/17/22 Botox - 155 u - Francisca 11, 09/25, Patient Reported: 11/17/2022 4:13 PM MIDAS Responses Days missed school/work 2 Days productivity at work/school reduced 4 Days did not do household work 0 Days productivity related to housework reduced 5 Days missed family, social or leisure activities 0 Days had headache 10 Pain scale 6 MIDAS Score 11 (MIDAS grase III, moderate disability) MIDAS Adjusted Score 11 Anticoagulation or antiplatelets: None. Risk and benefits were explained to the patient. Written consent was obtained: 11/2021 The patient is not PROCEDURE Time out was preformed OnabotulinumtoxinA was [...] units divided between 2 sites in the pbx inspector muscles, 5 units into 1 site in [...] tolerated the procedure without any immediate complications. Kayy Espinosa APRN [facility] Neurology Headache Clinic documented in this encounter Plan of Treatment Upcoming Encounters Date Type Department Care Team (Late st Contact Info) Description 05/02/2024 2:00 PM EST Procedure visit Neurology at [address] [address] Aaron Ruiz APRN [facility] [address] 06/08/2024 10:30 AM EST TH Visit (TeleHealth) Neurology at [address] [address] Kayy Espinosa APRN [facility] [place] [address] documented as of this encounter Procedures Procedure Name Priority Date/Time Associated Diagnosis Comments CHEMODENERVATION, MEDICAL Routine 11/17/2022 4:30 PM EDT documented in this encounter Results * Chemodenervation, medical (11/17/2022 4:30 PM EDT) Narrative Kayy Espinosa APRN - 11/17/2022 4:30 PM EDT Kayy Espinosa, FELICITA ? 11/17/2022 ??4:54 PM Neurology Procedure note Date: 11/17/2022 Patient: Sharmin Mayo : ??1995 Procedure: Botox injections (PREEMPT protocol) - ??every 12 weeks Indications: Chronic Migraine [id number] Date ??Procedure ?? MIDAS 05/28/21 Botox #1 115, 10/25, 07/21/22 Botox - 155 u - Guillaume 25, 08/25, 11/17/22 Botox - 155 u - Francisca 11, 09/25, Patient Reported: ??11/17/2022 ??4:13 PM MIDAS Responses Days missed school/work 2 Days productivity at work/school reduced 4 Days did not do household work 0 Days productivity related to housework reduced 5 Days missed family, social or leisure activities 0 Days had headache 10 Pain scale ??6 MIDAS Score 11 (MIDAS grase III, moderate disability) MIDAS Adjusted Score 11 Anticoagulation or antiplatelets: None. Risk and benefits were explained to the patient. Written consent was obtained: 11/2021 The patient is not PROCEDURE Time out was preformed OnabotulinumtoxinA was [...] units divided between 2 sites in the pbx inspector muscles, 5 units into 1 site in [...] tolerated the procedure without any immediate complications. Kayy Espinosa APRN [facility] Neurology Headache Clinic Kayy Espinosa APRN PROCEDURE/MINOR SURG ICAL ORDERABLES documented in this encounter Visit Diagnoses Diagnosis Chronic migraine without aura, with intractable migraine, so stated, with status migrainosus documented in this encounter Administered Medications Inactive Administered Medications - up to 3 most recent administrations Medication Order MAR Action Action Date Dose Rate Site botulinum toxin type A 200 unit injection 155 Units, Intramuscular, ONCE, On Tue11/17/22 at 1645, 1 dose Given 11/17/2022 4:52 PM EDT 155 Units documented in this encounter Care Teams Lithopress Operator Relationship Specialty Start Date End Date Belen Bravo PA [address] [place] [address] [place] [address] PCP - General Internal Medicine 04/05/19 documented as of this encounter
--- OUTSIDE RECORDS SUMMARY | 2024-02-10 01:54 | XMS_ITS | Encounter Summary ---
Author Organization [facility] [place] [address] Care Team Providers Care Product/Industry Consultant Name Role Phone Belen Bravo Primary [...] FACIAL/TRIGEM/CERV MUSC MIGRAINE BOTOX Kayy Espinosa APRN [facility] [place] [address] Kayy Espinosa BOIL OFF MACHINE OPERATOR CLOTH [facility] [place] [address] Referral ID Status Reason Start Date Expiration Date V isits Requested Visits Authorized [id number] Closed Consult, Test & Treat 10/16/2021 11/18/2023 18 16 Encounter Details Date Type Department Care Team (Late st Contact Info) Description 02/09/2023 1:30 PM EDT Office Visit Neurology at [address] [phone] Kayy Espinosa APRN [facility] [place] [address] Chronic migraine with and without aura, with [...] * Patient Instructions* Kayy Espinosa APRN - 02/09/2023 1:30 PM EDT Images from the original note were not included. CHECK OUT INSTRUCTIONS: - After this appointment if you have not heard from our team within 5 business days to schedule your next Botox, please call the office at . - If you have imaging ordered at [facility], please call directly: . Kayy Espinosa (she/her) ANNA MARIE MIMS [facility] Department of Neurology Headache Clinic Botox After [...] Procedure Notes * Kayy Espinosa APRN - 02/09/2023 1:30 PM EDTAssociated Order(s): CHEMODENERVATION, MEDICAL Neurology Procedure note Date: 02/09/2023 Patient: Sharmin Mayo : 1995 Procedure: Botox injections (PREEMPT protocol) - every 12 weeks Indications: Chronic Migraine [id number] Date Procedure MIDAS 05/28/21 Botox #1 115, 10/25, 07/21/22 Botox - 155 u - Guillaume 25, 11/17/22 Botox - 155 u - Francisca 11, 09/25, 02/09/23 Botox - 155 u - Francisca 26, 08/25, Patient Reported: 02/09/2023 1:32 PM MIDAS Responses Days missed school/work 1 Days productivity at work/school reduced 10 Days did not do household work 5 Days productivity related to housework reduced 8 Days missed family, social or leisure activities 2 Days had headache 15 Pain scale 5 MIDAS Score 26 (MIDAS grade IV, severe disability) MIDAS Adjusted Score 26 Risk and benefits were explained to the patient. Written consent was obtained: 02/09/23 The patient is not or planning on [...] units divided between 2 sites in the rope tow operator muscles, 5 units into 1 site in [...] without any immediate complications. Kayy Espinosa APRN [facility] Neurology Headache Clinic documented in this encounter Plan of Treatment Upcoming Encounters Date Type Department Care Team (Late st Contact Info) Description 05/02/2024 2:00 PM EST Procedure visit Neurology at [address] [phone] Aaron Ruiz APRN [facility] [place] [address] 06/08/2024 10:30 AM EST TH Visit (TeleHealth) Neurology at [facility] [address] [place] [address] Kayy Espinosa APRN [facility] [place] [address] documented as of this encounter Procedures Procedure Name Priority Date/Time Associated Diagnosis Comments CHEMODENERVATION, MEDICAL Routine 02/09/2023 1:30 PM EDT documented in this encounter Results * Chemodenervation, medical (02/09/2023 1:30 PM EDT) Narrative Kayy Espinosa APRN - 02/09/2023 1:30 PM EDT Kayy Espinosa APRN ? 02/09/2023 ??1:51 PM Neurology Procedure note Date: 02/09/2023 Patient: Sharmin Mayo : ??1995 Procedure: Botox injections (PREEMPT protocol) - ??every 12 weeks Indications: Chronic Migraine [id number] Date ??Procedure ?? MIDAS 05/28/21 Botox #1 115, 10/25, 07/21/22 Botox - 155 u - Guillaume 25, 08/25, 11/17/22 Botox - 155 u - Francisca 11, 09/25, 02/09/23 Botox - 155 u - Francisca 26, 08/25, Patient Reported: ??02/09/2023 ??1:32 PM MIDAS Responses Days missed school/work 1 Days productivity at work/school reduced 10 Days did not do household work 5 Days productivity related to housework reduced 8 Days missed family, social or leisure activities 2 Days had headache 15 Pain scale ??5 MIDAS Score 26 (MIDAS grade IV, severe disability) MIDAS Adjusted Score 26 Risk and benefits were explained to the patient. Written consent was obtained: 02/09/23 The patient is not or planning on [...] units divided between 2 sites in the rope tow operator muscles, 5 units into 1 site in [...] without any immediate complications. Kayy Espinosa APRN [facility] Neurology Headache Clinic Kayy Espinosa APRN PROCEDURE/MINOR [...] 200 unit 155 Units, Intramuscular, ONCE, On Tue02/09/23 at 1400, 1 dose Given 02/09/2023 1:48 PM EDT 155 Units documented in this encounter Care Teams Product/Industry Consultant Relationship Specialty Start Date End Date Belen Bravo PA [address] [place] [address] [place] [address] PCP - General Internal Medicine 04/05/19 documented as of this encounter
--- OUTSIDE RECORDS SUMMARY | 2024-02-10 01:55 | XMS_ITS | Encounter Summary ---
Author Organization [facility] [place] [address] Care Team Providers Care Bench Worker Hollow Handle Name Role Phone Belen Bravo Primary Care Provider + Reason for Visit * Reason Onset Date Comments Appointment 03/30/2021 Encounter Details Date Type Department Care Team (Late st Contact Info) Description 03/30/2021 Telephone Neurology at [facility] [address] [place] [address] Yoni Hudson MD [facility] [place] [address] Appointment Social History Tobacco Use Types Packs/Day [...] encounter Miscellaneous Notes * Telephone Encounter - Desi Piedra - 04/29/2021 1:33 PM EST Patient called today to schedule 1st botox appt. She states she has terrible service at work and missed returned call and voicemail. Please return call to work number to schedule. Confirmed that worknumber in chart is correct. * Telephone Encounter - Desi Piedra - 03/30/2021 9:53 AM EST Call Center / [place] Message - General Issue Call Provider patient sees in Clinic: Becca Caller and relationship (if other than patient-full name): Sharmin [employer] and position if other than patient or family: Call back number: [phone] Ok to leave a message: yes Reason for call: Patient calling to schedule 1st botox appt. Unable to reach membership secretary. Please return call to schedule. Disposition of Call (choose one and remove others): ??? Routine message sent to Tool Analyst: yes Nurse/[place] contacted via: Message: y Call: y Pager: n documented in this encounter Plan of Treatment Upcoming Encounters Date Type Department Care Team (Late st Contact Info) Description 05/02/2024 2:00 PM EST Procedure visit Neurology at [address] [address] Aaron Ruiz [facility] [place] [address] 06/08/2024 10:30 AM EST TH Visit (TeleHealth) Neurology at [address] [phone] Kayy Espinosa [facility] [place] [address] documented as of this encounter Visit Diagnoses Not on filedocumented in this encounter Care Teams Bench Worker Hollow Handle Relationship Specialty Start Date End Date Belen Bravo PA [address] [place] [address] [place] TUBBS [address] PCP - General Internal Medicine 04/05/19 documented as of this encounter
--- OUTSIDE RECORDS SUMMARY | 2024-02-10 01:55 | XMS_ITS | Encounter Summary ---
[place] [address] Care Team Providers Care Systems Eng Name Role Phone Sridevi Rodriguez MD Primary Care Provider [phone] Reason for Visit * Reason Comments Other Encounter Details Date Type Department Care Team (Late st Contact Info) Description 07/23/2013 Telephone [place] [phone] Lara Patton, UROGYNAECOLOGIST NEUROLOGY Social History Tobacco Use Types Packs/Day Years Used Date Smoking Tobacco: Never Comments:no smokers Alcohol Use Standard Drinks/Week Comments Not Asked 0 (1 standard drink = 0.6 oz pur e alcohol) Sex and Gender Information Value Date Recorded Sex Assigned at Not on file Gender Identity Not on file Sexual Orientation Not on file documented as of this encounter Miscellaneous Notes * Telephone Encounter - Lara Patton RN - 07/23/2013 1:35 PM EDT I called mom back and left a message to call me back. I see from the chart that Sharmin is currentlyon Topamax 25 mgs BID since 06/27/13. * Telephone Encounter - Lara Patton RN - 07/23/2013 1:15 PM EDT Message copied by LARA PATTON on TueJul 23, 2013 1:15 PM ------ Message from: CHICHI WYMAN Created: TueJul 23, 2013 1:00 PM Contact: Mother, Shana Mother, Shana called, again 07/23 @ 1:00pm, same message as below. Please call mom soon to discuss. . ----- Message ----- From: Chichi Wyman Sent: 07/18/2013 4:26 PM To: [facility] Nurse Patient of Dr. Michael - saw her on 06/27 - was told to call with an update - she was put on a low dose of Topamax - they really haven't seen any change - wondering if they should increase the dose - she's still having daily headaches and has had a few migraines over the past few weeks. Please call mom to discuss. documented in this encounter Plan of Treatment Upcoming Encounters Date Type Department Care Team (Late st Contact Info) Description 05/02/2024 2:00 PM EST Procedure visit Neurology at [address] [address] Aaron Ruiz, [facility] [place] [address] 06/08/2024 10:30 AM EST TH Visit (TeleHealth) Neurology at [address] [address] Kayy Espinosa [facility] [place] [address] documented as of this encounter Visit Diagnoses Not on filedocumented in this encounter Care Teams Systems Eng Relationship Specialty Start Date End Date Sridevi Rodriguez MD [address] [place] [id number] PCP - General 06/27/13 04/04/19 documented as of this encounter
--- OUTSIDE RECORDS SUMMARY | 2024-02-10 01:55 | XMS_ITS | Encounter Summary ---
Author Organization [facility] [place] [address] Care Team Providers Care Supervisor Anodizing Name Role Phone Sridevi Rodriguez MD Primary Care Provider [phone] Reason for Visit * Reason Comments Migraine Encounter Details Date Type Department Care Team (Late st Contact Info) Description 06/27/2013 1:15 PM EDT Office [place] [address] Madyson Michael MD [facility] [place] [address] Migraine headache; Leg numbness Discharge Disposition: Home Social History Tobacco Use Types Packs/Day Years Used Date Smoking Tobacco: Never Comments:no smokers Alcohol Use Standard Drinks/Week Comments Not Asked 0 (1 standard drink = 0.6 oz pur e alcohol) Sex and Gender Information Value Date Recorded Sex Assigned at Not on file Gender Identity Not on file Sexual Orientation Not on file documented as of this encounter Last Filed Vital Signs Vital Sign Reading Time Taken Comments Blood Pressure 113/64 06/27/2013 1:44 PM EDT Pulse 76 06/27/2013 1:44 PM EDT Temperature - - Respiratory Rate 18 06/27/2013 1:44 PM EDT Oxygen Saturation - - Inhaled Oxygen Concentration - - Weight 48.5 kg (107 lb) 06/27/2013 1:44 PM EDT Height 163.8 cm (5' 4.5) 06/27/2013 1:44 PM EDT Head Circumference 22 cm 06/27/2013 1:44 PM EDT Body Mass Index 18.08 06/27/2013 1:44 PM EDT Body Mass Index Percentile 11.89% 06/27/2013 1:4 4 PM EDT Growth Chart: [facility] (Girls, 2- 20 Years) documented in this encounter Patient Instructions * Patient Instructions* Madyson Michael MD - 06/27/2013 2:09 PM EDT Take topamax 25 mg tab, one tab a day for a week, then one tab twice a day. May use over the counters for headaches up to twice a week. Call in 3 weeks time if headaches persist; we can discuss dosage adjustment at that time. Follow up in 3 months time. documented in this encounter Progress Notes * Madyson Michael MD - 06/27/2013 2:13 PM EDT Sharmin Salazar was seen at the request of Dr. Rodriguez for daily headaches in the setting of anxiety and history of joint pain, on 06/27/2013. Sharmin is a 18-and-1/[id number]-[id number]-[id number] 11th grader who is accompanied by her mother. I saw her a bit more than three years ago for headache. At that time, she had failed cyproheptadine and amitriptyline, though it is unclear if she had full trials of either of these. We elected to do brain and spine MRIs because of multiple complaints in the lower extremities as well as headache. We also started Topamax. The neuroimaging was unremarkable. It seems as though the Topamax was tried only for a brief time and then discontinued. Subsequently, she tried propranolol again at a low dose of 20 mg a day without benefit. She is currently experiencing daily bilateral throbbing headaches with nausea, but no vomiting. She describes photophobia, but no phonophobia. Symptoms wax and wane over the course of the day without clear precipitant. She had been taking mrgn-bzy-graafbac on a daily basis, but was cautioned by her PCP to discontinue this. She no longer takes [id number]-[id number]-[id number] and tells me that they provided minimal benefit. There has been no sinus disease. She is on a 504 Plan at school and many days does not attend class or attends only half a day. She is, however, able to keep up with her school work at home and is hoping to go to college. She is taking citalopram for anxiety and had been seeing a counselor in the past. She feels that she is well versed in coping strategies. Past medical history indicates she was born at 35 weeks and had some mild jaundice. Growth and development proceeded normally. She was hospitalized once as an infant for pneumonia. CURRENT MEDICATIONS: Citalopram. SHE HAS NO ALLERGIES TO MEDICATIONS. Family history indicates two younger siblings, a brother and a sister are both well. Mother had migraines, which ceased after diagnosis of hypothyroidism. Social history indicates Sharmin lives with her parents and siblings. She has played softball in the past. Review of systems indicates she has had normal thyroid function tests in the past. She also had a sleep study, which I believe showed no parasomnias and no evidence of significant sleep disordered breathing. Otherwise, review of systems is negative in detail, although she does wear eye glasses. Physical exam shows well-appearing, cooperative adolescent. Cardiac exam is benign. Chest is clear. Neck is supple. Thyroid is not enlarged. She is normocephalic. There is nothing to suggest sinus disease. Gait is normal heel-to-toe. Romberg is negative. She can stand on her toes as well as her heels. Tandem is normal. Mental status and language are age-appropriate without error. Pupils are equal, round, and reactive; eye moments are full and conjugate; and jackson are full to confrontation. Optic fundi are benign with sharp discs and normal vessels. Face is symmetric with eye closure and smile. Tongue is midline. Palate elevates symmetrically. There is no pronator drift. There is no appendicular ataxia. Muscle bulk, tone, and strength are normal. Sensory is intact. There are no cerebellar signs. Deep tendon reflexes are 1+ and symmetric. ASSESSMENT: 1. Symmetric nonfocal elemental neurologic exam. 2. Longstanding chronic daily headaches with some migrainous features, in need of preventive approach. 3. Anxiety, improved on citalopram. 4. Normal neuroimaging and normal sleep study are reassuring. RECOMMENDATIONS: 1. Restart Topamax 25 mg daily for a week and then go to one tab b.i.d. 2. Can use fycv-zja-nksgiivm up to twice a week. 3. If headaches persist after three weeks, mother should call me and we can increase the Topamax. 4. I spent some time discussing the process of addressing chronic headaches with starting at a low dose of a given medication and pushing it until headaches have resolved or if side effects become burdensome, then transitioning to alternate medication. 5. I have provided some information regarding headaches in adolescence as well as information about MigreLief. The latter is a homeopathic that might help her migraines. 6. Follow up in the office in three months' time or sooner if indicated. documented in this encounter Plan of Treatment Upcoming Encounters Date Type Department Care Team (Late st Contact Info) Description 05/02/2024 2:00 PM EST Procedure visit Neurology [address] [address] Aaron Ruiz, [facility] [place] [address] 06/08/2024 10:30 AM EST TH Visit (TeleHealth) Neurology [address] [address] [facility] [place] [address] documented as of this encounter Visit Diagnoses Diagnosis Migraine headache Migraine, unspecified, without mention of intractable migraine without mention of status migrainosus Leg numbness Disturbance of skin sensation documented in this encounter Care Teams Supervisor Anodizing Relationship Specialty Start Date End Date Sridevi Rodriguez MD [address] [place] [address] [address] [facility] [address] [place] [address] PCP - General 06/27/13 04/04/19 documented as of this encounter
--- OUTSIDE RECORDS SUMMARY | 2024-02-10 01:55 | XMS_ITS | Encounter Summary ---
Author Organization [facility] [place] [address] Care Team Providers Care Desktop Analyst Name Role Phone Belen Bravo Primary Care Provider + Reason for Visit * Reason Onset Date Comments Appointment 11/30/2021 Encounter Details Date Type Department Care Team (Late st Contact Info) Description 11/30/2021 Telephone Neurology at [facility] [address] [place] [address] Kayy Espinosa APRN [facility] [place] [address] Appointment Social History Tobacco Use Types Packs/Day [...] encounter Miscellaneous Notes * Telephone Encounter - Amalia Cisneros - 11/30/2021 3:46 PM EDT Copied from CRM #[id number]. Topic: Specialty Dept CRMs - Appointment Needed >> Nov 30, 2021 3:26 PM Shana Leos wrote: Appt Needed Specialist Francisca Sultana APRN Relationship (if other than patient-full name): Self, Sharmin Mayo Appt. Type Needed: Other Reason for Visit: Looking to reschedule 12 week botox appointment from todays cancelled appointment documented in this encounter Plan of Treatment Upcoming Encounters Date Type Department Care Team (Late st Contact Info) Description 05/02/2024 2:00 PM EST Procedure visit Neurology at [address] [address] Aaron Ruiz [facility] [place] [address] 06/08/2024 10:30 AM EST TH Visit (TeleHealth) Neurology at [address] [address] Kayy Espinosa [facility] [place] [address] documented as of this encounter Visit Diagnoses Not on filedocumented in this encounter Care Teams Desktop Analyst Relationship Specialty Start Date End Date Belen Bravo PA [address] [place] [address] [place] [address] PCP - General Internal Medicine 04/05/19 documented as of this encounter
--- OUTSIDE RECORDS SUMMARY | 2024-02-10 01:55 | XMS_ITS | Encounter Summary ---
Author Organization [facility] [place] [address] Care Team Providers Care Printed Circuit Board Drafter Name Role Phone Belen Bravo Primary Care Provider + Encounter Details Date Type Department Care Team (Late st Contact Info) Description 12/03/2019 Notes Only Neurology at [facility] [address] [place] [address] Yoni Hudson MD [facility] [place] [address] Social History Tobacco Use Types Packs/Day Years [...] as of this encounter Progress Notes * Yoni Hudson MD - 12/03/2019 3:11 PM EDT Notes Only 12-03-19 Pt no showed 12-03-19 & these notes were made up for that appointment. Last Appointment: 06-26-19 Headache Hx: Pt seen one time 06-26-19 with continuous chronic migraine wwo aura who was breast feeding. She had responded to erenumab 70 mg prescribed by another provider before she got . I prescribed Cefaly. Prior Treatments: TCAs 1. Amitriptyline SSRIs 2. Citalopram 3. Sertraline AEDs 4. TPM Neuroleptics 5. Promethazine NSAIDs 6. Ibuprofen Misc 7. APAP Narcotics 8. Tramadol 9. Oxycodone Beta blockers 10. Propranolol MABs 11. Erenumab 70 on it for 3-4 mos and it worked! Triptans 12. Iliana Neuromodulation Cefaly Past Medical History: Diagnosis Date ??? Chronic migraine without aura, with intractable migraine, so stated, with status migrainosus ??? Chronic pain head, back, hips, knees, ankle ??? ROSIE (generalized anxiety disorder) ??? Migraine with aura, intractable, with status migrainosus Past Surgical History: Procedure Laterality Date ??? APPENDECTOMY ??? TONSILLECTOMY AND ADENOIDECTOMY No Known Allergies Yoni Hudson MD documented in this encounter Plan of Treatment Upcoming Encounters Date Type Department Care Team (Late st Contact Info) Description 05/02/2024 2:00 PM EST Procedure visit Neurology at [address] [address] Aaron Ruiz, [facility] [place] [address] 06/08/2024 10:30 AM EST TH Visit (TeleHealth) Neurology at [address] [address] Kayy Espinosa, [facility] [place] [address] documented as of this encounter Visit Diagnoses Not on filedocumented in this encounter Care Teams Printed Circuit Board Drafter Relationship Specialty Start Date End Date Belen Bravo PA [address] [place] [address] [place] [address] PCP - General Internal Medicine 04/05/19 documented as of this encounter
--- OUTSIDE RECORDS SUMMARY | 2024-02-10 01:55 | XMS_ITS | Encounter Summary ---
Author Organization [facility] [place] [address] Care Team Providers Care Group Sales Representative Name Role Phone Belen Bravo Primary Care Provider + Encounter Details Date Type Department Care Team (Late st Contact Info) Description 06/26/2021 Orders Only [place] [address] Cara Collado [facility] [place] [address] Social History Tobacco Use Types Packs/Day Years [...] 2:00 PM EST Procedure visit Neurology at [address] [id number] Aaron Ruiz [facility] [place] [address] 06/08/2024 10:30 AM EST TH Visit (TeleHealth) Neurology at [address] [address] Kayy Espinosa APRN [facility] [place] [address] documented as of this encounter Procedures Procedure Name Priority Date/Time Associated Diagnosis Comments HEPATITIS B SURFACE ANTIBODY Routine 06/26/2021 10:38 AM EST documented in this encounter Results * Hepatitis B Surface Antibody (06/26/2021 10:38 AM EST) Hepatitis B Surface Antibody, Quantitative <3.5 IU/L [facility] Comment: HepB Surface Ab Quant: Unvaccinated: < 8.5 IU/L Vaccinated: > 11.5 IU/L Hepatitis B Surface Antibody Negative [facility] Comment: Patient is presumed to be not vaccinated or immune to HBV infection. Expected Results: Vaccinated: Positive Unvaccinated: Negative Blood Venous Draw / Unknown 06/26/2021 10:38 AM EST 06/26/2021 10:50 AM EST Narrative Resulting Agency Comment Spec In Lab Cara Collado APRN CHEMISTRY ORDERABLES [facility] [place] [address] documented in this encounter Visit Diagnoses Not on filedocumented in this encounter Care Teams Group Sales Representative Relationship Specialty Start Date End Date Belen Bravo PA [address] [place] [address] [place] [address] PCP - General Internal Medicine 04/05/19 documented as of this encounter
--- OUTSIDE RECORDS SUMMARY | 2024-02-10 01:55 | XMS_ITS | Encounter Summary ---
Author Organization [facility] [place] [address] Care Team Providers Care Game Farm Helper Name Role Phone Belen Bravo Primary Care Provider + Reason for Visit * Reason Onset Date Comments TeleHealth 04/13/2022 Medication and a llergy review. Encounter Details Date Type Department Care Team (Late st Contact Info) Description 04/13/2022 Telephone Neurology at [address] [address] Kayy Espinosa, DIVISION SUPERINTENDENT [facility] [place] [address] TeleHealth (Medication and allergy review. ) Social [...] Telephone Encounter - Janny Sandoval RN - 04/13/2022 1:21 PM EST Unable to reach this patient by phone to review their medications and allergies prior to their upcoming tele-appointment with the Neurology provider. No message left. documented in this encounter Plan of Treatment Upcoming Encounters Date Type Department Care Team (Late st Contact Info) Description 05/02/2024 2:00 PM EST Procedure visit Neurology at [address] [address] Aaron Ruiz [facility] [place] [address] 06/08/2024 10:30 AM EST TH Visit (TeleHealth) Neurology at [address] [address] Kayy Espinosa [facility] [place] [address] documented as of this encounter Visit Diagnoses Not on filedocumented in this encounter Care Teams Game Farm Helper Relationship Specialty Start Date End Date Belen Bravo PA [address] [place] [address] [place] [address] PCP - General Internal Medicine 04/05/19 documented as of this encounter
--- OUTSIDE RECORDS SUMMARY | 2024-02-10 01:55 | XMS_ITS | Encounter Summary ---
Author Organization [facility] [place] [address] Care Team Providers Care Orbitread Operator Name Role Phone Allen Rodriguez MD Primary Care Provider Encounter Details Date Type Department Care Team (Latest Contact Info) Description 11/02/2010 5:16 PM EDT - 11/02/2010 11:59 PM EDT Hospital [place] [address] CLINIC, Madyson Juarez MD [facility] [place] [address] Leg numbness; Chronic headaches; Leg weakness Discharge Disposition: Home Social History Tobacco Use [...] Sign Reading Time Taken Comments Blood Pressure - - Pulse - - Temperature - - Respiratory Rate - - Oxygen Saturation - - Inhaled Oxygen Concentration - - Weight 54.9 kg (121 lb) 11/02/2010 6:26 AM EDT Height - - Body Mass Index - - documented in this encounter Medications at Time of Discharge Medication Sig Dispensed Refills Start Date End Date topiramate (TOPAMAX) 25 mg tabletIndications:Chroni c headaches Take 1 tablet by mouth 2 times daily. 60 tablet 12 10/20/2010 10/20/2011 ibuprofen (ADVIL;MOTRIN) 100 mg/5 mL suspensionIndications:pa in Take 400 mg by mouth every 6 hours as needed. Indications: Pain 08/05/2010 01/14/2021 documented as of this encounter Miscellaneous Notes * Miscellaneous - Provider, Scanning - 11/26/2010 12:57 PM EDT documented in this encounter Plan of Treatment Upcoming Encounters Date Type Department Care Team (Late st Contact Info) Description 05/02/2024 2:00 PM EST Procedure visit Neurology at [address] [address] [facility] [place] [address] 06/08/2024 10:30 AM EST TH Visit (TeleHealth) Neurology at [address] [address] [facility] [place] [address] documented as of this encounter Procedures Procedure Name Priority Date/Time Associated Diagnosis Comments MRI BRAIN WWO CONTRAST (GENERIC) Routine 11/02/2010 6:57 PM EDT Disturbance of skin sensation Headache Muscle weakness (generalized) documented in this encounter Results * MRI BRAIN WITH/WO CONTRAST (11/02/2010 6:57 PM EDT) Anatomical Region Laterality Modality Head Magnetic Resonan ce 11/02/2010 6:57 PM EDT Impressions 11/04/2010 8:11 AM EDT IMPRESSION: ?? Normal brain MR. Narrative 11/04/2010 8:11 AM EDT MRI OF THE BRAIN WITH AND WITHOUT CONTRAST: ?? HISTORY: ??Leg weakness and numbness. ?? TECHNIQUE: ??MR of the brain performed prior to and following intravenous administration of 11 mL of Magnevist. ?? CONTRAST: ??11 mL of Magnevist. ?? FINDINGS: ??The ventricles are normal in size and contour. ??There is no mass, mass effect, or shift. ??Intracranial flow voids are normal. ??Cerebral parenchyma is normal in signal throughout. ??No abnormal enhancement is identified after the administration of contrast material. ??There is no restricted diffusion. ??Craniocervical junction is normal. ??Cerebral parenchyma is normally formed. ?? Procedure Note Nikhil De Souza MD - 11/04/2010 MRI OF THE BRAIN WITH AND WITHOUT CONTRAST: HISTORY: Leg weakness and numbness. TECHNIQUE: MR of the brain performed prior to and following intravenous administration of 11 mL of Magnevist. CONTRAST: 11 mL of Magnevist. FINDINGS: The ventricles are normal in size and contour. There is nomass, mass effect, or shift. Intracranial flow voids are normal. Cerebral parenchyma is normal in signal throughout. No abnormal enhancement is identified after the administration of contrast material. There is no restricted diffusion. Craniocervical junction is normal. Cerebralparenchyma is normally formed. IMPRESSION IMPRESSION: Normal brain MR. Madyson Michael MD IMG MRI ORDERABLES documented in this encounter Visit Diagnoses Diagnosis Leg numbness Disturbance of skin sensation Chronic headaches Headache Leg weakness Other musculoskeletal symptoms referable to limbs documented in this encounter Administered Medications Inactive Administered Medications - up to 3 most recent administrations Medication Order MAR Action Action Date Dose Rate Site gadopentetate dimeglumine (MAGNEVIST) injection 10.98 mL 10.98 mL (0.2 mL/kg/dose ? 54.9 kg), Intravenous, ONCE PRN, Per Protocol, Starting on Tue11/02/10 at 1740, 1 dose, Until Tue11/02/10 at 1843 Given 11/02/2010 6:43 PM EDT 11 mLs documented in this encounter Care Teams Orbitread Operator Relationship Specialty Start Date End Date Allen Rodriguez MD [address] [place] [address] PCP - General 03/10/10 06/26/13 documented as of this encounter
--- OUTSIDE RECORDS SUMMARY | 2024-02-10 01:55 | XMS_ITS | Encounter Summary ---
Author Organization [facility] [place] [address] Care Team Providers Care Assistant Center Manager Name Role Phone Belen Bravo Primary Care Provider + Reason for Visit * High Dollar Medication (Routine) - Closed Specialty Diagnoses / Procedures Referred By Cadence minaya Referred To Contact Neurology Diagnoses Intractable chronic migraine without aura and with status migrainosus Procedures Onabotulinumtoxin A (BOTOX) Authorizations Request (IN CLINIC) TC ONABOTULINUMTOXINA, 1 UNIT, INJECTION PRO CHEMODENERVATION FACIAL/TRIGEM/CERV MUSC MIGRAINE BOTOX Kayy Espinosa APRN [facility] [place] [address] Kayy Espinosa TEST ENGINE OPERATOR [facility] [place] [address] Referral ID Status Reason Start Date Expiration Date V isits Requested Visits Authorized [id number] Closed Consult, Test & Treat 10/16/2021 11/18/2023 18 16 Encounter Details Date Type Department Care Team (Late st Contact Info) Description 05/28/2021 11:30 AM EST Office Visit Neurology at [facility] [address] [place] [address] Edwin Navarro MD [facility] [place] [address] Intractable chronic migraine without aura and with status migrainosus Social History Tobacco Use [...] as of this encounter Progress Notes * Edwin Navarro MD - 05/28/2021 11:30 AM EST [facility] PROCEDURE NOTE Procedure: BOTOX (OnabotulinumtoxinA) injections Indication: Chronic migraine. No Contraindications. The patient: Not on antiplatelet or anticoagulant therapy. The patient reports to me that they ARE NOT Date of Last Injection: First Injection QUESTIONNAIRE RESULTS: MIDAS: Patient Reported: MIDAS Responses 05/28/2021 Days missed school/work 10 Days productivity at work/school reduced 60 Days did not do household work 20 Days productivity related to housework reduced 15 Days missed family, social or leisure activities 10 Days had headache 70 Pain scale 7 MIDAS Score 115 (MIDAS grade IV, severe disability) MIDAS Adjusted Score 115 PHQ-9: No flowsheet data found. ROSIE-7: No flowsheet data found. INTERIM HISTORY: Today is patient's first round of Botox. No data found. I obtained written informed consent from the patient for the procedure. May 2021 The potential risks and side effects associated with BOTOX (OnabotulinumtoxinA) injections were reviewed in detail with the patient. The side effects and risks reviewed included bruising, bleeding, infection, inflammation, alopecia, weakness, ptosis, corneal abrasion, cosmetic deformity, pain, persistent headache, persistent pain, flu-like symptoms, dysphagia, dysarthria, neck droop, muscle pain and or stiffness, paralysis, respiratory failure, aspiration, aspiration pneumonia, allergic reaction, and . The patient was informed of the FDA black box warning associated with OnabotulinumtoxinA. The patient was informed that BOTOX (OnabotulinumtoxinA) is approved for the treatment of chronic migraine but not for any other headache disorder or pain condition. The patient continued to be in agreement with the above plan and had no further questions. The patient wished to proceed with the procedure. A preprocedural pause occurred to verify the patient's identity, correct medication per unit dosages, and correct target sites. The BOTOX (OnabotulinumtoxinA) was reconstituted with preservative free normal saline to a final concentration of 5 units per 100 microL. The area over each injection site was cleaned with alcohol (swab saturated with 70% isopropyl alcohol). 155 units from lot [id number], expiration date 01/17/2024, were injected in the following pattern: 5 units in the procerus. 10 units divided evenly over 2 injection sites in the corrugators. 20 units in 4 injection sites across the frontalis. 20 units in 4 injection sites in the right temporalis. 20 units in 4 injection sites in the left temporalis. 15 units in 3 injection site to the right occipitalis. 15 units in 3 injection sites in the left occipitalis. 20 units in a total of 4 injection sites in the cervical paraspinal muscles. 30 units divided evenly across a total of 6 injection sites in trapezius muscles. Units discarded: 45 Aseptic technique and negative heme aspiration was used throughout the procedure. The patient tolerated the procedure well and had no complications. The patient was observed for 5 minutes afterwards. As stated above, there were no complications. PLAN: Follow up as planned Follow up and continued management as per Dr. Ivelisse Hudson. Repeat injections in: 12 weeks. References: Ivelisse Guadalupe, et al. (2010). OnabotulinumtoxinA for treatment of chronic migraine: results from the double-blind, randomized, placebo-controlled phase of the PREEMPT 1 trial. Cephalalgia 30(7): 793-803. Ciro Ma, et al. (2010). OnabotulinumtoxinA for treatment of chronic migraine: results from the double- blind, randomized, placebo-controlled phase of the PREEMPT 2 trial. Cephalalgia 30(7): 804-814. Kunal De Paz, et al. (2010). Method of injection of onabotulinumtoxinA for chronic migraine: a safe, well-tolerated, and effective treatment paradigm based on the PREEMPT clinical program. Headache 50(9): 8178-0887. documented in this encounter Plan of Treatment Upcoming Encounters Date Type Department Care Team (Late st Contact Info) Description 05/02/2024 2:00 PM EST Procedure visit Neurology at [address] [address] [facility] [place] [address] 06/08/2024 10:30 AM EST TH Visit (TeleHealth) Neurology at [address] [address] Kayy Espinosa [facility] [place] [address] documented as of this encounter Visit Diagnoses Diagnosis Intractable chronic migraine without aura and with status migrainosus Chronic migraine without aura, with intractable migraine, so stated, with status migrainosus documented in this encounter Administered Medications Inactive Administered Medications - up to 3 most recent administrations Medication Order MAR Action Action Date Dose Rate Site botulinum toxin type A 200 unit injection 200 Units, Intramuscular, ONCE, On Christine 05/28/21 at 1430, 1 dose Given 05/28/2021 2:03 PM EST 200 Units documented in this encounter Care Teams Assistant Center Manager Relationship Specialty Start Date End Date Belen Bravo PA [address] [place] [address] [place] [address] PCP - General Internal Medicine 04/05/19 documented as of this encounter
--- OUTSIDE RECORDS SUMMARY | 2024-02-10 01:55 | XMS_ITS | Encounter Summary ---
[place] [address] Care Team Providers Care Tank Car Reconditioner Name Role Phone Belen Bravo Primary Care Provider + Encounter Details Date Type Department Care Team (Late st Contact Info) Description 08/14/2020 Specialty [place] [id number] Blas Clark, [facility] Social History Tobacco Use Types Packs/Day Years [...] as of this encounter Progress Notes * Blas Clark RP - 08/14/2020 12:12 PM EDT Specialty Pharmacy Consultation; Blas Clark RP Comprehensive Medication Management (CMM): [facility] Consult, Opt Out Sharmin Mayo Diagnosis: chronic migraine Therapy Start Date: approx 05/26/2020 Contact in person or via telephone: n/a Summary and Recommendations: Sharmin Mayo was opted out of a new start consultation and assessment for her AIMOVIG in light of the fact that she has been using it since May 2020. Sharmin Mayo is aware of how to take this medication and of the prescribed dose. Sharmin Mayo is not yet enrolled in [facility]'s texting platform, [employer], which notifies patients of when their next refill is due. Sharmin Mayo will be contacted by the pharmacy for regular MIDAS assessments to assess medication effectiveness. The patient's last MIDAS took place on 05/26/2020. Pharmacy will offer enrollment in the refill reminder texting platform when we contact Sharmin. Therapy Assessment: Appropriate Therapy: Yes Current Medication Dosing/Route/Frequency: AIMOVIG: Inject the contents of one pen (140mg) subcutaneously once every 28 days Additional equipment/supplies required: Sharps container Care Plan Reviewed and Approved by Pharmacist : Yes Pharmacist Reviewed Medications: Yes Medications reconciled: No Pharmacist Reviewed Allergies :Yes Allergies reconciled: No Pharmacist follow-up needed: Yes Informed patient of specialty pharmacy services: Yes -Patient is aware a licensed pharmacist is available 24 hours a day, 7 days a week to discuss medication-related questions or concerns: Yes -Patient verbalizes understanding of the common side effect profile of their medication. The patient is able to call 911 or seek urgent care if signs/symptoms of allergy or harmful adverse reactions occur: Yes Patient understands no changes to current drug regimen were made at the appointment and that the pharmacist is providing recommendations (summary located at top of note) for provider review and follow up. Blas Clark RPH 08/14/20 12:13 PM documented in this encounter Plan of Treatment Upcoming Encounters Date Type Department Care Team (Late st Contact Info) Description 05/02/2024 2:00 PM EST Procedure visit Neurology at [address] [address] Aaron Ruiz APRN [facility] [place] [address] 06/08/2024 10:30 AM EST TH Visit (TeleHealth) Neurology at [address] [address] Kayy Espinosa APRN [facility] [place] [address] documented as of this encounter Visit Diagnoses Not on filedocumented in this encounter Care Teams Tank Car Reconditioner Relationship Specialty Start Date End Date Belen Bravo PA [address] [place] [address] [place] [address] PCP - General Internal Medicine 04/05/19 documented as of this encounter
--- OUTSIDE RECORDS SUMMARY | 2024-02-10 01:55 | XMS_ITS | Encounter Summary ---
Author Organization [facility] [place] [address] Care Team Providers Care Geographic Information System Analyst Name Role Phone Belen Bravo Primary Care Provider + Reason for Visit * Reason Onset Date Comments Appointment 05/29/2021 Encounter Details Date Type Department Care Team (Late st Contact Info) Description 05/29/2021 Telephone Neurology at [facility] [address] [place] [address] Yoni Hudson [place] [id number] Appointment Social History Tobacco Use Types Packs/Day [...] * Telephone Encounter - Bianka Ramos - 06/25/2021 10:05 AM EST Scheduling Instructions Provider: Yoni Hudson MD or Any ROBERT MIMS Visit Type: Botox & Follow Up or ABHIJIT (paste AMANDA Instructions or manually enter): Follow up and continued management as per Dr. Ivelisse Hudson-Next Available (Last seen via telehealth) Appt Note: 12 week Botox Additional Info Needed: Please transfer to Bianka for scheduling * Telephone Encounter - Shana Leos - 06/04/2021 10:01 AM EST Sharmin called in to schedule her Botox appointment as well as her [address]Stewart Hudson. I was unable to connect patient to Bianka or Lily at time of call. Please call back to assist with scheduling once available Thank you * Telephone Encounter - Bianka Ramos - 05/29/2021 1:20 PM EST Scheduling Instructions Provider: Any JONES Provider Visit Type: Botox (paste AMANDA Instructions or manually enter): Follow up and continued management as per Dr. Ivelisse Hudson. Repeat injections in: 12 weeks Botox Appt Note: 12 week Botox Additional Info Needed: Patient also needs a five month follow up. Last seen via telehealth 01.19.2021. Please transfer to either Bianka documented in this encounter Plan of Treatment Upcoming Encounters Date Type Department Care Team (Late st Contact Info) Description 05/02/2024 2:00 PM EST Procedure visit Neurology at [address] [address] Aaron Ruiz [facility] [place] [address] 06/08/2024 10:30 AM EST TH Visit (TeleHealth) Neurology at [address] [address] Kayy Espinosa [facility] [place] [address] documented as of this encounter Visit Diagnoses Not on filedocumented in this encounter Care Teams Geographic Information System Analyst Relationship Specialty Start Date End Date Belen Bravo PA [address] [place] [address] [place] [address] PCP - General Internal Medicine 04/05/19 documented as of this encounter
--- OUTSIDE RECORDS SUMMARY | 2024-02-10 01:55 | XMS_ITS | Encounter Summary ---
Author Organization [facility] [place] [address] Care Team Providers Care Wool Broker Name Role Phone Belen Bravo Primary Care Provider + Encounter Details Date Type Department Care Team (Latest Contact Info) Description 04/15/2022 3:00 PM EST TH Visit (TeleHealth) Neurology at [facility] [address] [place] [address] [facility] [place] [address] Chronic migraine with and without aura, with [...] * Patient Instructions* Kayy Espinosa APRN - 04/15/2022 3:00 PM EST Continue Aimovig and Botox for prevention Try ice prior to Aimovig For acute treatment, start sumatriptan 100 mg at first sign of headache Can repeat dose in 2 hours Do not treat more than 2 headache days weekly 3. For acute headache, start Nurtec 75 mg at first sign of a headache A. Do not repeat dose within 24 hours B. OK to treat more than 2 headaches weekly, will not cause rebound headache C. Do not take within 24 hours of Sumatriptan 4. Bring rescue medication (or tylenol/ibuprofen) to Botox appointment or take slightly prior 5. It is important to continue to avoid while taking Aimovig and/or Botox, [facility] does recommend contraception with IUD or oral contraceptive when possible. documented in this encounter Progress Notes * Kayy Espinosa APRN - 04/15/2022 3:00 PM EST [facility] Telehealth Follow-Up Patient name: Sharmin [...] and speech aura ABHIJIT: 10/15/21 Last Visit: 10/15/21 Prior seen by: Yoni Hudson MD on 01/19/2021 (tele) HPI: Please see ABHIJIT note dated 10/15/21 for full HPI Sharmin first sought treatment for her history of headaches since age 13 [address] Madyson Lazaro in pediatric neurology at [facility] once in 2010 and once in 2013. During this time she had continuous chronic migraine. In 2018 Sharmin was seen by Neurology in [place] and started on lower dose of Aimovig. Stopped d/t . She presented to Dr. Ivelisse Hudson for initial visit on 06/26/2019 and was having continuous headaches at this time. Since initial visit she has been placed back on Aimovig (started after prior care), and started Botox as well. Aimovig started 05/26/2021, initially with 50% reduction in headache days, now s/p ~10 injections. Then Botox started 05/28/2021, now s/p 4 cycles, with a redu ction of headache days from 70/90 to 40/90. Previous Visit: Continue Aimovig Continue Botox Continue Migrinal Interval Events: - Overall feeling as though migraines are more manageable, less severe debilitating attacks, will still have increased headache burden in the afternoons/later in the day - Last Botox in Feb, felt like she got hit hard felt migraine during the drive home (1+ hr), feltnauseous and lightheaded for two days - Noticed this some with previous Botox but less severe - Did have a large bruise with last Aimovig but typically no site reaction, OK with self injection - Not taking Migranal, no rescue medications - Sumatriptan effective in the past but stopped d/t gradual reduction of efficacy Patient Reported: MIDAS Responses 04/15/2022 Days missed school/work 15 Days productivity at work/school reduced 20 Days did not do household work 15 Days productivity related to housework reduced 20 Days missed family, social or leisure activities 10 Days had headache 40 Pain scale 5 MIDAS Score 80 (MIDAS grade IV, severe disability) MIDAS Adjusted Score 80 ??MIDAS History Date JONES Pain JONES days Score Comments 01/19/202109/25 69 10/15/2109/25 130 ABHIJIT - Francisca 04/15/202208/25 40/90 80 Current preventative regimen and frequency: Aimovig Botox Current abortive regimen and frequency: None Medications: Current Outpatient Medications Medication Sig Dispense Refill ??? Aimovig Autoinjector 140 mg/mL Auto-Injector INJECT THE CONTENTS OF ONE PEN (140MG) SUBCUTANEOUSLY ONCE EVERY 28 DAYS. 1 mL 5 ??? sertraline (ZOLOFT) 100 mg Tablet Take 100 mg by mouth daily. Total dose 150 mg daily ??? busPIRone (Buspar) 10 mg Tablet Take 10 mg by mouth 2 times daily. ??? famotidine (Pepcid) 20 mg Tablet Take 20 mg by mouth 2 times daily. ??? sertraline (Zoloft) 50 mg Tablet Take 50 mg by mouth daily. Total dose of 150 mg daily ??? levothyroxine (Synthroid) 25 mcg Tablet Take 25 mcg by mouth daily. No current facility-administered medications for this visit. Physical Exam: Constitutional: 26 y.o. female appears stated age, well nourished, [...] Assessment and plan: Sharmin Mayo is a 26 year old female presenting with and without visual and speech aura. No new signs on exam or history that would warrant further workup at this time. Sharmin has had an overall reduction of headache days 70/90 to 40/90 on combination of Aimovig and Botox. Plan to continue as we would still expect increased efficacy over time. For migraine associated with Botox I recommended she bring rescue medications to the visit or take shortly prior, and consider bringing a local [place] truck driver. For bruise and pain with Aimovig, recommend icing prior to injection. While we have a good plan to optimize prevention, Sharmin still needs an effective rescue treatment without side effects. Migranal ineffective, d/c. Plan for Nurtec 75 mg. In the interm, we will retrySumatriptan as this was efficacious in the past. Again, recommend continued avoidance of while on Botox and Aimovig. Synergy for BTX + MAB is established: 1.??Zandra AM, Joe BM, Edwin ZelayaD, Miley A, Vickey G, Zay L, Gerhard Ramos A. Real-World Evidence for Control of Chronic Migraine Patients Receiving CGRP Monoclonal Antibody Therapy Added to OnabotulinumtoxinA: A Retrospective Chart Review. Pain Ther. 2020Aug 06. doi: 10.1007/s40 [phone]-x. Epub ahead of print. PMID: 60259048. 2.??Negro F, Abdi Mccarthy, Harrison RB, Ina S. Efficacy and Tolerability of Calcitonin Gene-Related Peptide-Targeted Monoclonal Antibody Medications as Add- on Therapy to OnabotulinumtoxinA in Patients with Chronic Migraine. Pain Med. 2020Nov 21;22(8):8480-8108. doi: 10.1093/pm/kstu370. PMID: 39474546. 3.??Familia L, TP, Ashley H, Ashley M, Lew R. Dual Therapy With Anti- CGRP Monoclonal Antibodies and Botulinum Toxin for Migraine Prevention: Is There a Rationale? Headache. 2019;60(6):7826-3444. doi: 10.1111/head.77985. Epub 2019September 05. PMID: 54600435. Plan to see Sharmin Mayo for a follow- up visit in 3 months to discuss efficacy of rescue medications. #Chronic migraine with and without aura ?? Workup/Referrals/Reccomendations - avoidance, reliable contraceptive recommended if possible [...] typos. Kayy Espinosa APRN Department of Neurology [facility] ?? Medications Tried ([x]? checked have been [...] Ajovy []? Emgality []? Vyepti ?? Toxins: []? OnabotulinumtoxinA (Botox) ?? Gepants []? Ubrelvy (ubrogepant) [x]? Nurtec (rimegepant) []? Qulipta (atogepant) ?? Ditans - high-affinity 5-HT1F receptor agonist []? Reyvow (lasmiditan) ?? Supplements: []? Butterbur []? Coenzyme Q10 []? Feverfew []? Magnesium []? Melatonin []? Migrelief (B2, mag, feverfew) []? Vitamin B2 (riboflavin) ?? Other: []? Boswellia Karon []? Buspirone (Buspar) []? Doxycycline []? Lidocaine patch (Lidoderm) []? Clearlake []? Memantine (Namenda) []? Montelukast (Singulair) []? Naloxone []? Oxygen ?? Triptans oral: []? Almotriptan (Axert) []? Eletriptan (Relpax) []? Frovatriptan (Frova) [x]? Naratriptan (Amerge) [x]? Rizatriptan (Maxalt) SE: drowsy [x]? Sumatriptan (Imitrex) SE: dizzy, didn't work []? Sumatriptan/Naproxen (Treximet) []? Zolmitriptan (Zomig) Triptans [...] []? Acupuncture []? Acupressure []? Biofeedback []? Grain Origination Specialist []? Cognitive Behavioral Therapy []? Craniosacral therapy []? Massage therapy []? Physical therapy ?? Benzodiazepines: []? Alprazolam (Xanax) []? Chlordiazepoxide (Librium) []? Clonazepam (Klonopin) []? Diazepam (Valium) []? Lorazepam (Ativan) []? Temazepam (Restoril) ?? Combination/Other Analgesics: []? Acetaminophen (Tylenol) []? Acetaminophen/aspirin/caffeine (Excedrin/Pamprin) []? Acetaminophen/caffeine/pyrilamine maleate (Midol) []? Acetaminophen/dichloralphenazone/ isometheptene (Midrin) Opioids/Narcotics/Controlled Substances: []? Acetaminophen/Codeine (Tylenol #3) []? Acetaminophen/Hydrocodone (Pontiac/Vicodin) []? Acetaminophen/Oxycodone (Percocet) []? Butalbital/aspirin/caffeine/codeine (Fiorinal with [...] 2:00 PM EST Procedure visit Neurology at [address] [address] [facility] [place] [address] 06/08/2024 10:30 AM EST TH Visit (TeleHealth) Neurology at [address] [address] [facility] [place] [address] documented as of this encounter Visit Diagnoses Diagnosis Chronic migraine with and without aura, with intractable migraine, so stated, with status migrainosus Chronic migraine without aura, with intractable migraine, so stated, with status migrainosus documented in this encounter Care Teams Wool Broker Relationship Specialty Start Date End Date Belen Bravo PA [address] [place] [address] [place] [address] PCP - General Internal Medicine 04/05/19 documented as of this encounter
--- OUTSIDE RECORDS SUMMARY | 2024-02-10 01:55 | XMS_ITS | Encounter Summary ---
Author Organization [facility]ly [facility] [place] [address] Care Team Providers Care Reel Slitter Name Role Phone Allen Rodriguez MD Primary Care Provider [phone] Reason for Visit * Reason Onset Date Comments Other 11/11/2010 Encounter Details Date Type Department Care Team ([facility] st Contact Info) Description 11/11/2010 Telephone [place] [address] Madyson Michael MD [facility] [place] [address] Other Social History Tobacco Use Types Packs/Day Years [...] encounter Miscellaneous Notes * Telephone Encounter - Madonna Prieto RN - 11/11/2010 4:30 PM EDT Pediatric Neurology, Haylee Date: 11/11/2010 Time of Notification: 4:18 PM Results: From Lumbar and Thoracic Spine MRI: IMPRESSION: No significant abnormalities detected. From Brain MRI: IMPRESSION: Normal brain MR. I called and spoke to Sharmin's mother, Shana, and discussed the finding with her. I did notify herthat the spinal MRI detected an osteophyte but was not a significant finding per report. I asked how Sharmin was doing and Shana stated that she started the Topamax, but then became sick with a virus that was going around school. At that point, she stopped taking the Topamax and has not yet restarted it. Shana said Sharmin continues to get almost daily headaches but that her joint pain is better, especially since not being as active in school sports such as softball. 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 Plan: Restart Topamax. Follow up with Dr. Michael at next available appointment. Madonna Prieto, BROOD STATION MANAGER Nurse Clinician Pediatric Neurology/Nephrology * Telephone Encounter - Lindsey Olmos - 11/11/2010 8:40 AM EDT Mom called for MRI results from 11/02 and 11/05. Please call with results. documented in this encounter Plan of Treatment Upcoming Encounters Date Type Department Care Team (Late st Contact Info) Description 05/02/2024 2:00 PM EST Procedure visit Neurology at [address] [address] Aaron Ruiz [facility] [place] [address] 06/08/2024 10:30 AM EST TH Visit (TeleHealth) Neurology at [address] [address] Kayy Espinosa CLINICAL RESEARCH TECH [facility] [place] [address] documented as of this encounter Visit Diagnoses Not on filedocumented in this encounter Care Teams Reel Slitter Relationship Specialty Start Date End Date Allen Rodriguez MD [address] [place], [place] [address] [address] PCP - General 03/10/10 06/26/13 documented as of this encounter
--- OUTSIDE RECORDS SUMMARY | 2024-02-10 01:55 | XMS_ITS | Encounter Summary ---
[place] [address] Care Team Providers Care Mechanical Estimator Name Role Phone Belen Bravo Primary Care Provider + Reason for Visit * Reason Comments Prior Authorization Aimovig 140 mg/mL Au toinjector Encounter Details Date Type Department Care Team (Late st Contact Info) Description 03/04/2022 Specialty [place] [address] Musa Lamb, [facility] Social History Tobacco Use Types Packs/Day [...] as of this encounter Progress Notes * Musa Lamb - 03/04/2022 10:21 AM EST [facility], Medication Prior Authorization Submission Patient: Sharmin Mayo Patient : 1995 Patient Address: [address] [place] [address] Phone: [phone] (home) Medication Name: AIMOVIG AUTOINJECTOR 140 MG/ML SUBCUTANEOUS AUTO-INJECTOR Medication ID: [id number] Subscriber Insurance: Subscriber Insurance Comment: [facility] (IRX) Fax: Physician: KAYY SORIANO Physician Comment: Sent Via: [facility] Parker: Ref/Case/PA#: [id number] Medication Strength Frequency Requested: Inject one pen's contents once every twenty-eight days Qty/Day Supply: 05/15 New Start: Renewal Diagnosis & ICD-10 Code: G43.711 - Chronic migraine without aura, with intractable migraine, sostated, with status migrainosus Patient Notified: Left Voicemessage Submission Notes: - PA submitted via [employer], EOC ID - [id number] Musa Lamb 03/04/22 10:24 AM * Tori Mo - 03/04/2022 10:21 AM EST [facility], Prior Authorization Approval Medication Name: AIMOVIG AUTOINJECTOR 140 MG/ML SUBCUTANEOUS AUTO-INJECTOR Medication ID: [id number] Approval Dates: 03/08/2022 to 09/05/2022 Insurance requirements/notes: - NA Other Notes: - HAIDER APPROVED VIA ONBASE FOR AIMOVIG FROM 03/08/2022 TO 09/05/2022 WITH $5.00 COPAY. DOCUMENTING IN ED. Case/Reference #: NA Approval notification Received via: Fax Copay: $5.00 Copay assistance: Copay Card Copay Notes: Patient has copay card on file. Insurance mandated Pharmacy: [facility] Fillable at [facility]: Yes Pharmacy staff will be reaching out to the patient to inform them of their medication's [facility]. If applicable, a pharmacist will speak with the patient to offer our specialty pharmacy services and to arrange delivery of their medication. Tori Mo 03/08/22 1:26 PM documented in this encounter Plan of Treatment Upcoming Encounters Date Type Department Care Team (Late st Contact Info) Description 05/02/2024 2:00 PM EST Procedure visit Neurology at [address] [address] Aaron Ruiz [facility] [place] [address] 06/08/2024 10:30 AM EST TH Visit (TeleHealth) Neurology at [address] [address] Kayy Soriano, [facility] [place] [address] documented as of this encounter Visit Diagnoses Not on filedocumented in this encounter Care Teams Mechanical Estimator Relationship Specialty Start Date End Date Belen Bravo PA [address] [place] [address] [place] [address] PCP - General Internal Medicine 04/05/19 documented as of this encounter
--- OUTSIDE RECORDS SUMMARY | 2024-02-10 01:55 | XMS_ITS | Encounter Summary ---
[place] [address] Care Team Providers Care Butcher Head Name Role Phone Sridevi Rodriguez MD Primary Care Provider [phone] Reason for Visit * Reason Comments Other Encounter Details Date Type Department Care Team ([facility] st Contact Info) Description 06/27/2013 Telephone Pediatric [place] [phone] Lara Patton, [facility] Social History Tobacco Use Types Packs/Day [...] Telephone Encounter - Lara Patton RN - 06/27/2013 3:23 PM EDT I double checked with and she said it was fine to switch her to tablets. * Telephone Encounter - Lara Patton RN - 06/27/2013 3:23 PM EDT Message copied by LARA PATTON on TueJun 27, 2013 3:23 PM ------ Message from: GREGOR SALMERON Created: TueJun 27, 2013 3:14 PM Contact: Sara Zhao, [place], [place] Voicemail - received an escript for Topirimate sprinkle caps. Due to her age - wondering if they can do the regular tablets instead documented in this encounter Plan of Treatment Upcoming Encounters Date Type Department Care Team (Late st Contact Info) Description 05/02/2024 2:00 PM EST Procedure visit Neurology at [address] [address] [facility] [place] [address] 06/08/2024 10:30 AM EST TH Visit (TeleHealth) Neurology at [address] [address] [address] [place] [address] documented as of this encounter Visit Diagnoses Not on filedocumented in this encounter Care Teams Butcher Head Relationship Specialty Start Date End Date Sridevi Rodriguez MD [address] [place] [address] [address] [place] [address] PCP - General 06/27/13 04/04/19 documented as of this encounter
--- OUTSIDE RECORDS SUMMARY | 2024-02-10 01:55 | XMS_ITS | Encounter Summary ---
Author Organization [facility]ly [facility] [place] [address] Care Team Providers Care Cephalometric Analyst Name Role Phone Allen Rodriguez MD Primary Care Provider [phone] Encounter Details Date Type Department Care Team (Latest Contact Info) Description 11/05/2010 5:32 PM EDT - 11/05/2010 11:59 PM EDT Hospital [place] [address] CLINIC, Madyson Juaerz MD [facility] [place] [address] Leg numbness; Chronic headaches; Leg weakness Discharge [...] on file documented as of this encounter Medications at Time of Discharge [...] * Miscellaneous - Provider, Scanning - 11/26/2010 12:45 PM EDT documented in this encounter Plan of Treatment Upcoming Encounters Date Type Department Care Team (Late st Contact Info) Description 05/02/2024 2:00 PM EST Procedure visit Neurology at [address] [address] Aaron Ruiz, [facility] [place] [address] 06/08/2024 10:30 AM EST TH Visit (TeleHealth) Neurology at [address] [address] Kayy Espinosa, [facility] [place] [address] documented as of this encounter Procedures Procedure Name Priority Date/Time Associated Diagnosis Comments MRI THORACIC SPINE WITHOUT CONTRAST Routine 11/05/2010 6:44 PM EDT Disturbance of skin sensation Headache Muscle weakness (generalized) documented in this encounter Results * MRI THORACIC SPINE WITHOUT CONTRAST (11/05/2010 6:44 PM EDT) Anatomical Region Laterality Modality T-spine Magnetic Resonan ce 11/05/2010 6:44 PM EDT Impressions 11/07/2010 7:25 AM EDT IMPRESSION: ?? No significant abnormalities detected. Narrative 11/07/2010 7:25 AM EDT MR OF THE THORACIC SPINE WITHOUT CONTRAST AND LUMBAR SPINE WITHOUT CONTRAST, 11/05/10: HISTORY: ??Leg weakness and numbness. ?? COMPARISON: ??There are no comparison examinations. ?? FINDINGS: ?? THORACIC SPINE: ??Please note that the thoracic spine was also performed without contrast. ?? The thoracic cord is of normal size and signal. A very small disc osteophyte complex is identified at the T10-T11 and T11-T12 levels without significant canal or neuroforaminal narrowing. There is also a small Schmorl's node within the inferior endplate of T11. No aggressive marrow lesions are seen. ?? LUMBAR SPINE: ??Alignment is normal. The conus terminates at the T12-L1 level. No aggressive marrow lesions are seen. The disc spaces and vertebral body heights are well maintained. No canal or foraminal stenosis identified. This portion of the examination is somewhat limited by motion. ?? Procedure Note Perico Taveras MD - 11/07/2010 MR OF THE THORACIC SPINE WITHOUT CONTRAST AND LUMBAR SPINE WITHOUTCONTRAST, 11/05/10: HISTORY: Leg weakness and numbness. COMPARISON: There are no comparison examinations. FINDINGS: THORACIC SPINE: Please note that the thoracic spine was also performedwithout contrast. The thoracic cord is of normal size and signal. A very small discosteophyte complex is identified at the T10-T11 and T11-T12 levels withoutsignificant canal or neuroforaminal narrowing. There is also a small Schmorl's nodewithin the inferior endplate of T11. No aggressive marrow lesions are seen. LUMBAR SPINE: Alignment is normal. The conus terminates at the V41-K0bgrgi. No aggressive marrow lesions are seen. The disc spaces and vertebral body heights are well maintained. No canal or foraminal stenosis identified.This portion of the examination is somewhat limited by motion. IMPRESSION IMPRESSION: No significant abnormalities detected. Madyson Michael MD IMG MRI ORDERABLES documented in this encounter Visit Diagnoses Diagnosis Leg numbness Disturbance of skin sensation Chronic headaches Headache Leg weakness Other musculoskeletal symptoms referable to limbs documented in this encounter Care Teams Cephalometric Analyst Relationship Specialty Start Date End Date Allen Rodriguez MD [address] [place] [address] PCP - General 03/10/10 06/26/13 documented as of this encounter
--- OUTSIDE RECORDS SUMMARY | 2024-02-10 01:55 | XMS_ITS | Encounter Summary ---
Author Organization [facility] [address] [facility] [place] [address] Care Team Providers Care Cryptographic Center Specialist Name Role Phone Belen Bravo Primary Care Provider + Encounter Details Date Type Department Care Team (Latest Contact Info) Description 03/10/2022 Travel Social History Tobacco Use Types Packs/Day [...] 2:00 PM EST Procedure visit Neurology at [address] [address] Aaron Ruiz [facility] [place] [address] 06/08/2024 10:30 AM EST TH Visit (TeleHealth) Neurology at [address] [address] Kayy Espinosa [facility] [place] [address] documented as of this encounter Visit Diagnoses Not on filedocumented in this encounter Care Teams Cryptographic Center Specialist Relationship Specialty Start Date End Date Belen Bravo PA [address] [place] [address] [place] [address] PCP - General Internal Medicine 04/05/19 documented as of this encounter
--- OUTSIDE RECORDS SUMMARY | 2024-02-10 01:55 | XMS_ITS | Encounter Summary ---
Author Organization [facility] [place] [address] Care Team Providers Care Cutter Hand Name Role Phone Belen Bravo Primary Care Provider + Reason for Visit * High Dollar Medication (Routine) - Closed Specialty Diagnoses / Procedures Referred By Cadence minaya Referred To Contact Neurology Diagnoses Intractable chronic migraine without aura and with status migrainosus Procedures Onabotulinumtoxin A (BOTOX) Authorizations Request (IN CLINIC) TC ONABOTULINUMTOXINA, 1 UNIT, INJECTION PRO CHEMODENERVATION FACIAL/TRIGEM/CERV MUSC MIGRAINE BOTOX Kayy Espinosa [facility] [place] [address] Kayy Espinosa [facility] [place] [address] Referral ID Status Reason Start Date Expiration Date V isits Requested Visits Authorized [id number] Closed Consult, Test & Treat 10/16/2021 11/18/2023 18 16 Encounter Details Date Type Department Care Team (Late st Contact Info) Description 03/10/2022 3:30 PM EST Office Visit Neurology at [facility] [address] [place] [address] [place] [address] Intractable chronic migraine without aura and with [...] as of this encounter Progress Notes * Taisha Myrick MD - 03/10/2022 3:30 PM EST Brief note. Sharmin Mayo presents for Botox for chronic migraine, which the patient receives every 12 weeks.The last injection was on 12/09/21, during which she tolerated 165 units of Botox. She reports experiencing some wear off effect 1-2 weeks prior to next dose of Botox. Today, I have wasted 45 units ofBotox into her scalp across an even, symmetric distribution. Plan - schedule Botox in 12 weeks - patient sees Kayy Espinosa in clinic. Next appt is 04/15/2022. Taisha Myrick MD Headache Fellow, [facility] 03/10/2022 documented in this encounter Procedure Notes * Taisha Myrick MD - 03/10/2022 3:30 PM EST [facility] PROCEDURE NOTE Procedure: BOTOX (OnabotulinumtoxinA) injections every 12 weeks Indication: Chronic migraine. No Contraindications. The patient: Not on antiplatelet or anticoagulant therapy. The patient reports to me that they ARE NOT The patient is not or planning on getting in the next 4 months, is not nursing, has no known allergy to albumin. Date of Last Injection: 12/09/2021 QUESTIONNAIRE RESULTS: MIDAS: Patient Reported: MIDAS Responses 03/10/2022 Days missed school/work 15 Days productivity at work/school reduced 20 Days did not do household work 20 Days productivity related to housework reduced 15 Days missed family, social or leisure activities 10 Days had headache 60 Pain scale 6 MIDAS Score 80 (MIDAS grade IV, severe disability) MIDAS Adjusted Score - PHQ-9: No flowsheet data found. ROSIE-7: No flowsheet data found. INTERIM HISTORY: The patient continues to derive significant benefit from the procedure and wishes to have it repeated today.. No data found. The patient previously provided written informed consent for the procedure in: November 2021 The potential risks and side effects [...] 70% isopropyl alcohol). 155 units from lot [id number], expiration date 08/15/24, were injected in the following pattern: 5 [...] of 6 injection sites in trapezius muscles. . Units discarded: 45 units Aseptic technique and negative heme aspiration was used throughout the procedure. The patient tolerated the procedure well and had no complications. The patient was observed for 5 minutes afterwards. As stated above, there were no complications. Patient was counseled not to rub eyebrows or forehead within 24 hours of this procedure. PLAN: Follow up and continued management as per Kayy Espinosa Repeat injections in: 12 weeks. She was instructed to contact our clinic to call to make the follow-up appointment if she does not hear back from our schedulers. References: Ivelisse Guadalupe, et al. (2010). OnabotulinumtoxinA [...] on the PREEMPT clinical program. Headache 50(9): 7344-6759. documented in this encounter Plan of Treatment Upcoming Encounters Date Type Department Care Team (Late st Contact Info) Description 05/02/2024 2:00 PM EST Procedure visit Neurology at [address] [address] Aaron Ruiz [facility] [address] 06/08/2024 10:30 AM EST TH Visit (TeleHealth) Neurology at [address] [address] Kayy Espinosa [facility] [place] [address] documented as of this encounter Visit Diagnoses [...] unit injection 200 Units, Intramuscular, ONCE, On Tue03/10/22 at 1545, 1 dose Given 03/10/2022 4:07 PM EST 155 Units documented in this encounter Care Teams Cutter Hand Relationship Specialty Start Date End Date Belen Bravo PA [address] [place] [address] [place] [address] PCP - General Internal Medicine 04/05/19 documented as of this encounter
--- OUTSIDE RECORDS SUMMARY | 2024-02-10 01:55 | XMS_ITS | Encounter Summary ---
[place] [address] Care Team Providers Care Epilepsy Physician Name Role Phone Sridevi Rodriguez MD Primary Care Provider [phone] Reason for Visit * Reason Comments Other Encounter Details Date Type Department Care Team ([facility] Contact Info) Description 12/06/2014 Telephone [place] [phone] Rhonda Diamond LPN Social History Tobacco Use Types Packs/Day Years [...] encounter Miscellaneous Notes * Telephone Encounter - Rhonda Diamond LPN - 12/06/2014 2:59 PM EDT ----- Message from Chichi Wyman sent at 12/06/2014 2:40 PM EDT ----- Contact: Mother Patient of Dr. Michael. We just did a new prescription and noted on that prescription that the patient needed a follow up appointment. Mom called to say that they have been seeing a doctor closer to home and that the local physician is taking care of the prescription as well so she has cancelled theDrCharles Michael prescription sent in on 11/28/14 and is not scheduling a follow up here at this time. Reagan call for an appointment if anything changes in the future. --- Will do no further scripts as noted above. documented in this encounter Plan of Treatment Upcoming Encounters Date Type Department Care Team (Late st Contact Info) Description 05/02/2024 2:00 PM EST Procedure visit Neurology at [address] [address] Aaron Ruiz [facility] [place] [address] 06/08/2024 10:30 AM EST TH Visit (TeleHealth) Neurology at [address] [address] Kayy Espinosa [facility] [place] [address] documented as of this encounter Visit Diagnoses Not on filedocumented in this encounter Care Teams Epilepsy Physician Relationship Specialty Start Date End Date Sridevi Rodriguez MD [address] [place] [address] [address] [place] [address] PCP - General 06/27/13 04/04/19 documented as of this encounter
--- OUTSIDE RECORDS SUMMARY | 2024-02-10 01:55 | XMS_ITS | Encounter Summary ---
Author Organization [facility] [place] [address] Care Team Providers Care Nuclear Logging Engineer Name Role Phone Belen Bravo Primary Care Provider + Reason for Visit * Reason Comments Medication Refill Encounter Details Date Type Department Care Team (Late st Contact Info) Description 04/22/2021 Refill Neurology at [address] [address] Yoni Hudson MD [facility] [place] [address] Social History Tobacco Use Types Packs/Day Years [...] Encounters Date Type Department Care Team (Late Contact Info) Description 05/02/2024 2:00 PM EST Procedure visit Neurology at [address] [address] Aaron Ruiz APRN [facility] [place] [address] 06/08/2024 10:30 AM EST TH Visit (TeleHealth) Neurology at [address] [place] [address] Kayy Espinosa APRN [facility] [place] [address] documented as of this encounter Visit Diagnoses Not on filedocumented in this encounter Care Teams Nuclear Logging Engineer Relationship Specialty Start Date End Date Belen Bravo PA [address] [place] [address] [place] [address] PCP - General Internal Medicine 04/05/19 documented as of this encounter
--- OUTSIDE RECORDS SUMMARY | 2024-02-10 01:55 | XMS_ITS | Encounter Summary ---
[place] [address] Care Team Providers Care Forklift Mechanic Name Role Phone Belen Bravo Primary Care Provider + Reason for Visit * Reason Onset Date Comments Prior Authorization 05/20/2022 [facility] Encounter Details Date Type Department Care Team (Late st Contact Info) Description 05/20/2022 Telephone Neurology at [address] [phone] Sakshi Hughes CMA Prior Authorization ([facility]) Social History Tobacco Use Types Packs/Day Years [...] encounter Miscellaneous Notes * Telephone Encounter - Stacy Agosto CMA - 05/20/2022 3:04 PM ESTSumkadie: HAIDER approved Abbeytealexi ODT 75 MG Tablet Images from the original note were not included. Medication Prior Authorization for Primary Care Approved: Abbeytec ODT 75 MG Tablet Start Date: 05/20/2022 End Date: 08/17/2022 Case/Reference #: [id number] See Approval Letter in scanned documents. Additional Notes: * Telephone Encounter - Sakshi Hughes, [facility] - 05/20/2022 1:28 PM EST Medication Prior Authorization MARKED URGENT Patient: Sharmin Mayo Patient : 1995 Insurance Company: [employer] Sent via: [employer] portal Prior Auth (EOC) ID: [id number] Physician: Kayy Espinosa APRN Medication Requested: rimegepant [...] Topiramate Approx Dates: Outcome/Adverse Reactions: inadequate response Additional Notes: 04/15/2022 office note-attached to PA request Sharmin first sought treatment for her history of headaches since age 13 [address] Madyson Lazaro??in pediatric neurology at [facility] once in 2010 and once in 2013. During this time she had continuous chronicmigraine.??In 2018 Sharmin was seen by Neurology in [place] and started on lower dose of Aimovig. Stopped d/t .??She presented to Dr. Ivelisse Hudson for initial visit on 06/26/2019 and was having continuous headaches at this time. ??Since initial visit she has been placed back on Aimovig (startedafter prior care), and started Botox as well.??Aimovig started 05/26/2021, initially with 50% reduction in headache days, now s/p ~10 injections. Then Botox started 05/28/2021, now s/p 4 cycles, witha reduction of headache days from 70/90 to 40/90. ?? Previous Visit: Continue Aimovig Continue Botox Continue [...] but stopped d/t gradual reduction of efficacy ?? Patient Reported: MIDAS Responses 04/15/2022 Days missed school/work 15 Days productivity at work/school reduced 20 Days did not do household work 15 Days productivity related to housework reduced 20 Days missed family, social or leisure activities 10 Days had headache 40 Pain scale 5 MIDAS Score 80 (MIDAS grade IV, severe disability) MIDAS Adjusted Score 80 ?MIDAS History Date JONES Pain JONES days Score Comments 01/19/202109/25 4590 ??69 ?? 10/15/2109/25 70/90 130 ABHIJIT - Francisca 04/15/202208/25 40/90 80 ?? Current preventative regimen and frequency: Aimovig Botox ?? MRI brain with and without 11/02/2010 IMPRESSION: ?? Normal brain MR. No new signs on exam or history [...] take shortly prior, and consider bringing a canal driver. For bruise and pain with Aimovig, recommend icing prior to injection. ?? While we have a good plan to optimize prevention, Sharmin still needs an effective rescue treatment without side effects. Migranal ineffective, d/c. Plan for Nurtec 75 mg. In the interm, we will retrySumatriptan as this was efficacious in the past. #Chronic migraine with and without aura ?? Workup/Referrals/Reccomendations - avoidance, reliable contraceptive recommended if possible as discussed at ABHIJIT ?? For prevention: ?Consider Magnesium 500mg, B2 (Riboflavin) 400mg, CoQ10 300mg ?Continue Aimovig 140 mg/mL??auto injector ?Continue Botox ?? For acute JONES ?Nurtec 75 mg OR Sumatriptan 100 mg documented in this encounter Plan of Treatment Upcoming Encounters Date Type Department Care Team (Late st Contact Info) Description 05/02/2024 2:00 PM EST Procedure visit Neurology at [address] [address] Aaron Ruiz [facility] [place] [address] 06/08/2024 10:30 AM EST TH Visit (TeleHealth) Neurology at [address] [address] Kayy Espinosa [facility] [place] [address] documented as of this encounter Visit Diagnoses Not on filedocumented in this encounter Care Teams Forklift Mechanic Relationship Specialty Start Date End Date Belen Bravo PA [address] [place] [address] [place] [address] PCP - General Internal Medicine 04/05/19 documented as of this encounter
--- OUTSIDE RECORDS SUMMARY | 2024-02-10 01:55 | XMS_ITS | Encounter Summary ---
Author Organization [facility] [place] [address] Care Team Providers Care Health Insurance Sales Agent Name Role Phone Sridevi Rodriguez MD Primary Care Provider [phone] Reason for Visit * Reason Onset Date Comments Medication Refill 06/27/2013 Encounter Details Date Type Department Care Team (Late st Contact Info) Description 06/27/2013 [place]ill [place] [address] Madyson Michael MD [facility] DR [place] [address] Migraine headache (Primary Dx) Social History Tobacco Use Types Packs/Day Years [...] PM EST Procedure visit Neurology at [address] [address] Aaron Ruiz APRN [facility] [address] 06/08/2024 10:30 AM EST TH Visit (TeleHealth) Neurology at [facility] [address] [place] [address] Kayy Espinosa APRN [facility] [place] [address] documented as of this encounter Visit Diagnoses Diagnosis Migraine headache- Primary Migraine, unspecified, without mention of intractable migraine without mention of status migrainosus documented in this encounter Care Teams Health Insurance Sales Agent Relationship Specialty Start Date End Date Sridevi Rodriguez MD [address] [place] [address] PCP - General 06/27/13 04/04/19 documented as of this encounter
--- OUTSIDE RECORDS SUMMARY | 2024-02-10 01:55 | XMS_ITS | Encounter Summary ---
[place] [address] Care Team Providers Care Nuclear Criticality Safety Engineer Name Role Phone Belen Bravo Primary Care Provider + Reason for Visit * Reason Comments Prior Authorization Aimovig 140mg/mL SOA J Encounter Details Date Type Department Care Team (Late st Contact Info) Description 08/14/2020 Specialty [place] [address] Tori Mo, [facility] Social History Tobacco Use Types Packs/Day [...] of this encounter Progress Notes * Tori Pérez - 08/14/2020 12:11 PM EDT [facility], Medication Prior Authorization Patient: Sharmin Mayo Patient : 1995 Patient Address: [address] [place] [phone] (home) Medication Name: AIMOVIG AUTOINJECTOR 140 MG/ML SUBCUTANEOUS AUTO-INJECTOR Medication ID: [id number] Patient Location: [facility] Patient Location Comment: Subscriber Insurance: [employer] (ADV) Subscriber Insurance Comment: Fax: Physician: ALL CISNEROS Physician Comment: Sent Via: Fax Parker: NA Ref/Case/PA#: NA Medication Strength Frequency Requested: Aimovig/140mg/28 Qty/Day Supply: 05/15 New Start: New to Therapy Diagnosis & ICD-10 Code: Chronic Migraine Patient Notified: Yes Submission Notes: PA SUBMITTED VIA FAX TO INSURANCE. PATIENT IS AWARE OF PA TIMELINE FRAME. DOCUMENTING IN EDH AND METRICS. Tori Pérez 08/14/20 12:14 PM * Abram Bass - 08/14/2020 12:11 PM EDT [facility], Prior Authorization Approval Medication Name: AIMOVIG AUTOINJECTOR 140 MG/ML SUBCUTANEOUS AUTO-INJECTOR Medication ID: [id number] Approval Dates: 08/15/2020 to 11/14/2020 Insurance requirements/notes: None Other Notes: None Case/Reference #: Approval notification Received via: Telephone Copay: $5.00 Copay assistance: None Copay Notes: Insurance mandated Pharmacy: [facility] Fill[facility] at [facility] Special[facility] Pharmacy: Yes Pharmacy staff will be reaching out to the patient to inform them of their medication's approval byrandolph health insurance. If applicable, a pharmacist will speak with the patient to offer our specialty pharmacy services and to arrange delivery of their medication. Abram Bass 08/18/20 9:35 AM documented in this encounter Plan of Treatment Upcoming Encounters Date Type Department Care Team (Late st Contact Info) Description 05/02/2024 2:00 PM EST Procedure visit Neurology at [address] [address] Aaron Ruiz [facility] [place] [address] 06/08/2024 10:30 AM EST TH Visit (TeleHealth) Neurology at [address] [address] Kayy Espinosa [facility] [place] [address] documented as of this encounter Visit Diagnoses Not on filedocumented in this encounter Care Teams Nuclear Criticality Safety Engineer Relationship Specialty Start Date End Date Belen Bravo PA [address] [place] [address] [place] [address] PCP - General Internal Medicine 04/05/19 documented as of this encounter
--- OUTSIDE RECORDS SUMMARY | 2024-02-10 01:55 | XMS_ITS | Encounter Summary ---
Author Organization [facility] [place] [address] Care Team Providers Care Manager Image Name Role Phone Belen Bravo Primary Care Provider + Reason for Visit * Reason Onset Date Comments Appointment 08/21/2020 Encounter Details Date Type Department Care Team (Late st Contact Info) Description 08/21/2020 Telephone Neurology at [facility] [address] [place] [address] Yoni Hudson MD [facility] [place] [address] Appointment Social History Tobacco Use Types Packs/Day [...] * Telephone Encounter - Bianka Ramos - 08/21/2020 10:40 AM EDT Scheduling Instructions Provider: Yoni Hudson MD Visit Type: Follow Up or Telehealth Follow Up (paste AMANDA Instructions or manually enter): Return in about 5 months (around 01/18/2021) for Tele [facility], 30 minutes with me Appt Note: Additional Info Needed: LVM on patient's cell phone and sent message to [facility] 1st attempt to contact patient * Telephone Encounter - Bianka Ramos - 08/21/2020 10:40 AM EDT Sent an appointment reminder letter to patient's home address documented in this encounter Plan of Treatment Upcoming Encounters Date Type Department Care Team (Late st Contact Info) Description 05/02/2024 2:00 PM EST Procedure visit Neurology at [address] [address] [facility] [place] [address] 06/08/2024 10:30 AM EST TH Visit (TeleHealth) Neurology at [address] [address] Kayy Espinosa [facility] [place] [address] documented as of this encounter Visit Diagnoses Not on filedocumented in this encounter Care Teams Manager Image Relationship Specialty Start Date End Date Belen Bravo PA [address] [place] [address] [place] [address] PCP - General Internal Medicine 04/05/19 documented as of this encounter
--- OUTSIDE RECORDS SUMMARY | 2024-02-10 01:55 | XMS_ITS | Encounter Summary ---
Author Organization [facility] [place] [address] Care Team Providers Care Enrollment Management Vice President Name Role Phone Allen Rodriguez MD Primary Care Provider [phone] Reason for Visit * Reason Comments Follow-up accompanied by mom Encounter Details Date Type Department Care Team (Late st Contact Info) Description 10/07/2010 4:00 PM EDT Office Visit [facility] [address] [place] [address] Avtar Guzmán MD [facility] [place] [address] Arthralgia (Primary Dx) Discharge Disposition: Home Social History Tobacco Use Types Packs/Day Years Used Date Smoking Tobacco: Never Alcohol Use Standard Drinks/Week Comments Not Asked 0 (1 standard drink = 0.6 oz pur e alcohol) Sex and Gender Information Value Date Recorded Sex Assigned at Not on file Gender Identity Not on file Sexual Orientation Not on file documented as of this encounter Last Filed Vital Signs Vital Sign Reading Time Taken Comments Blood Pressure 110/62 10/07/2010 3:54 PM EDT Pulse - - Temperature 36.5 ??C (97.7 ??F) 10/07/2010 3:54 PM ED T Respiratory Rate - - Oxygen Saturation - - Inhaled Oxygen Concentration - - Weight 55 kg (121 lb 4.1 oz) 10/07/2010 3:54 PM EDT Height 162.5 cm (5' 3.98) 10/07/2010 3:54 PM ED T Body Mass Index 20.83 10/07/2010 3:54 PM EDT Body Mass Index Percentile 65.00% 10/07/2010 3:5 4 PM EDT Growth Chart: [facility] (Girls, 2- 20 Years) documented in this encounter Progress Notes * Avtar Guzmán MD - 10/07/2010 4:27 PM EDT This is a return visit for Sharmin Salazar. Sharmin was given tramadol and amitriptyline. The amitriptyline caused migraines and had to be discontinued. The tramadol seemed to work for her pain for about three weeks, but then she started to get increased anxiety attacks and discontinued. She is now just p.r.n. ibuprofen. She continues to have polyarthralgias without arthritis, but has had several other events occur. She had numbness in her legs in a sort of nondermatomal distribution multiple times while playing softball and at least one drop attack, which I do not have too much data on, but it appeared to be not associated with seizure activity or any loss of consciousness. She continues to have global headaches with neck pain that are different from her migraines and she also notes some visual changes and it is a little difficult to characterize, but she said that her left eye becomes dominant and has been seen by an plastic worker as well. Her primary and the plastic worker have referred her to neurology here and she will be seen on 10/20/2010. In addition, she has been seen by the sleep physicians at [facility] and she is scheduled for an overnight and daytime sleep study. They are concerned about her father's history of night terrors and her symptoms which they mentioned both sleep apnea and narcolepsy. PHYSICAL EXAMINATION: On exam, she is healthy-appearing and anxious. Her HEENT exam reveals normal pupils. Conjunctivae and sclerae are normal. Her pharynx is benign. Her neck is supple. There is no lymphadenopathy. Her chest is clear. Heart exam is unremarkable. Her abdomen is benign Neurologic exam is nl Assessment polyarthralgia no evidence for rheumatologic or inflammatory illness HLA B27 neg nl ESR neg NANI Plan no meds Sleep study Neuro consult Will call me after neuro visit documented in this encounter Plan of Treatment Upcoming Encounters Date Type Department Care Team (Late st Contact Info) Description 05/02/2024 2:00 PM EST Procedure visit Neurology at [address] [address] Aaron Ruiz, [facility] [address] 06/08/2024 10:30 AM EST TH Visit (TeleHealth) Neurology at [address] [address] Kayy Espinosa [facility] [place] [address] documented as of this encounter Visit Diagnoses Diagnosis Arthralgia- Primary Pain in joint, site unspecified documented in this encounter Care Teams Enrollment Management Vice President Relationship Specialty Start Date End Date Allen Rodriguez MD [address] [place] [address] [place] [address] PCP - General 03/10/10 06/26/13 documented as of this encounter
--- OUTSIDE RECORDS SUMMARY | 2024-02-10 01:55 | XMS_ITS | Encounter Summary ---
Author Organization [facility] [place] [address] Care Team Providers Care Paper Rewinder Name Role Phone Belen Bravo Primary Care Provider + Reason for Visit * Reason Onset Date Comments Medication Refill Appointment 03/26/2021 Encounter Details Date Type Department Care Team (Late st Contact Info) Description 03/26/2021 Refill Neurology at [facility] [address] [place] [address] Yoni Hudson MD [facility] [place] [address] Social History Tobacco Use Types Packs/Day Years [...] encounter Miscellaneous Notes * Telephone Encounter - Lily Kearns - 03/27/2021 1:08 PM EST Scheduling Instructions Provider: Any Alonso Provider Visit Type (paste AMANDA Instructions or manually enter): 1st Botox needs to be scheduled Appt Note: 1st Botox Additional Info Needed: documented in this encounter Plan of Treatment Upcoming Encounters Date Type Department Care Team (Late st Contact Info) Description 05/02/2024 2:00 PM EST Procedure visit Neurology at [address] [address] [facility] [place] [address] 06/08/2024 10:30 AM EST TH Visit (TeleHealth) Neurology at [address] [address] [facility] [place] [address] documented as of this encounter Visit Diagnoses Not on filedocumented in this encounter Care Teams Paper Rewinder Relationship Specialty Start Date End Date Belen Bravo PA [address] [place] [address] [place] [address] PCP - General Internal Medicine 04/05/19 documented as of this encounter
--- OUTSIDE RECORDS SUMMARY | 2024-02-10 01:55 | XMS_ITS | Encounter Summary ---
[place] [address] Care Team Providers Care Herbarium Worker Name Role Phone Belen Bravo Primary Care Provider + Reason for Visit * Reason Comments Prior Authorization Aimovig 140mg/mL SOA J Encounter Details Date Type Department Care Team (Late st Contact Info) Description 11/07/2020 Specialty [place] [address] Tori Mo, [facility] Social History Tobacco Use Types Packs/Day [...] encounter Progress Notes * Tori Pérez - 11/07/2020 11:04 AM EDT [facility], Medication Prior Authorization Patient: Sharmin Mayo Patient : 1995 Patient [address]: [address] [place] [phone] (home) Medication Name: AIMOVIG AUTOINJECTOR 140 MG/ML SUBCUTANEOUS AUTO-INJECTOR Medication ID: [id number] Patient Location: [facility] Patient Location Comment: Subscriber Insurance: [employer] (ADV) Subscriber Insurance Comment: Fax: Physician: ALL CISNEROS Physician Comment: Sent Via: Fax Parker: SHEA Ref/Case/PA#: NA Medication Strength Frequency Requested: Aimovig/140mg/28 Qty/Day Supply: 05/15 New Start: Renewal Diagnosis & ICD-10 Code: Chronic Migraine Patient Notified: No Submission Notes: HAIDER submitted via fax/email to insurance. Documenting in EDH Tori Pérez 11/07/20 11:06 AM * Yayo Bridges, [facility] - 11/07/2020 11:04 AM EDT [facility], Copay Assistance Medication Name: AIMOVIG AUTOINJECTOR 140 MG/ML SUBCUTANEOUS AUTO-INJECTOR Medication ID: Copay Assistance/Copay Card: Copay Card Name of Assistance Program: [employer] - Aimovig Copay Card Amount Provided by Program: Unavailable New Copayment: $5 Additional Information regarding this Assistance: The Aimovig copay card reduces the $309.71 copay down to $5. Yayo Bridges 11/12/20 12:30 PM [facility], Prior Authorization Approval Medication Name: AIMOVIG AUTOINJECTOR 140 MG/ML SUBCUTANEOUS AUTO-INJECTOR Medication ID: [id number] Approval Dates: 08/15/2020 to 11/14/2021 Insurance requirements/notes: None Other Notes: None Case/Reference #: [id number] Approval notification Received via: Telephone Copay: $309.71 Copay assistance: Copay Card Copay Notes: Insurance mandated Pharmacy: [facility] at [facility] Specialty Pharmacy: Yes Pharmacy staff will be reaching out to the patient to inform them of their medication's approval [facility]. If applicable, a pharmacist will speak with the patient to offer our specialty pharmacy services and to arrange delivery of their medication. Yayo Bridges 11/12/20 12:30 PM documented in this encounter Plan of Treatment Upcoming Encounters Date Type Department Care Team (Late st Contact Info) Description 05/02/2024 2:00 PM EST Procedure visit Neurology at [address] [address] Aaron Ruiz [facility] [place] [address] 06/08/2024 10:30 AM EST TH Visit (TeleHealth) Neurology at [address] [address] Kayy Espinosa [facility] [place] [address] documented as of this encounter Visit Diagnoses Not on filedocumented in this encounter Care Teams Herbarium Worker Relationship Specialty Start Date End Date Belen Bravo PA [address] [place] [address] [place] [address] PCP - General Internal Medicine 04/05/19 documented as of this encounter
--- OUTSIDE RECORDS SUMMARY | 2024-02-10 01:55 | XMS_ITS | Encounter Summary ---
[place] [address] Care Team Providers Care Nib Adjuster Name Role Phone Sridevi Rodriguez MD Primary Care Provider [phone] Reason for Visit * Reason Onset Date Comments Follow-up 10/17/2014 multiple cancell ed calls Other Encounter Details Date Type Department Care Team (Late st Contact Info) Description 10/17/2014 Telephone [place] [phone] Rosette Napier RN Follow-up (multiple cancelled calls); Social History Tobacco Use Types Packs/Day Years [...] Telephone Encounter - Lara Patton RN - 10/17/2014 1:10 PM EDT She is 19 now and should be seen by adult neurology. * Telephone Encounter - Lara Patton RN - 10/17/2014 1:09 PM EDT ----- Message from Marguerite Reene sent at 10/17/2014 11:41 AM EDT ----- Contact: Mom: Shana JASMINE mom phoned to cancel Sharmin's scheduled visit with Tiff Amado for 10/31. No reason was stated. This is the 6th visit in a row that they have cancelled. Her only visit ever was on 06/27/13. Sheis now 19. Should we schedule again or not? * Telephone Encounter - Rosette Napier RN - 10/17/2014 1:08 PM EDT ----- Message from Marguerite Renee sent at 10/17/2014 11:41 AM EDT ----- Contact: Mom: Shana ivy phoned to cancel Sharmin's scheduled visit with Tiff Amado for 10/31. No reason was stated. This is the 6th visit in a row that they have cancelled. Her only visit ever was on 06/27/13. Sheis now 19. Should we schedule again or not? +++ Sharmin was last seen by Dr. Michael on 06/27/13. Her last Topamax prescription was renewal 06/27/13 for 7 months. If parent calls back, we will suggest a referral to Adult Neurology. documented in this encounter Plan of Treatment Upcoming Encounters Date Type Department Care Team (Late st Contact Info) Description 05/02/2024 2:00 PM EST Procedure visit Neurology at [address] [address] Aaron Ruiz APRN [facility] [place] [address] 06/08/2024 10:30 AM EST TH Visit (TeleHealth) Neurology at [address] [address] Kayy Espinosa APRN [facility] [place] [address] documented as of this encounter Visit Diagnoses Not on filedocumented in this encounter Care Teams Nib Adjuster Relationship Specialty Start Date End Date Sridevi Rodriguez MD [address] [place] [address] PCP - General 06/27/13 04/04/19 documented as of this encounter
--- OUTSIDE RECORDS SUMMARY | 2024-02-10 01:55 | XMS_ITS | Encounter Summary ---
Author Organization [facility] [place] [address] Care Team Providers Care Scoop Driver Name Role Phone Allen Rodriguez MD Primary Care Provider [phone] Encounter Details Date Type Department Care Team (Late st Contact Info) Description 02/17/2012 Telephone [place] [phone] Madyson Michael MD [facility] [place] [address] Social History Tobacco Use Types Packs/Day Years [...] encounter Miscellaneous Notes * Telephone Encounter - Madyson Michael MD - 02/17/2012 4:56 PM EDT As per PCP, two weeks of JONES without response to vicdyn or imitrex. Failed amitriptyline, inderal and topamax in past (side effects). On prozac for fibromyalgia. Brain MRI least year normal. We agreedto try steroids for 5-7 day, and have her call for f/u appt in neuro. documented in this encounter Plan of Treatment Upcoming Encounters Date Type Department Care Team (Late st Contact Info) Description 05/02/2024 2:00 PM EST Procedure visit Neurology at [address] [address] [facility] [place] [address] 06/08/2024 10:30 AM EST TH Visit (TeleHealth) Neurology at [address] [address] Kayy Espinosa [facility] [address] documented as of this encounter Visit Diagnoses Not on filedocumented in this encounter Care Teams Scoop Driver Relationship Specialty Start Date End Date Allen Rodriguez MD [address] [place] [address] [place] [address] PCP - General 03/10/10 06/26/13 documented as of this encounter
--- OUTSIDE RECORDS SUMMARY | 2024-02-10 01:55 | XMS_ITS | Encounter Summary ---
Author Organization [facility] [place] [address] Care Team Providers Care Drain Layer Name Role Phone Belen Bravo Primary Care Provider + Reason for Visit * Reason Onset Date Comments Prior Authorization 05/20/2022 Encounter Details Date Type Department Care Team (Late st Contact Info) Description 05/20/2022 Telephone Neurology at [address] [address] Kayy Espinosa APRN [facility] [place] [address] Prior Authorization Social History Tobacco Use Types Packs/Day Years [...] encounter Miscellaneous Notes * Telephone Encounter - Karina Garcia LNA - 05/20/2022 9:39 AM EST Copied from CRM #[id number]. Topic: Specialty Dept CRMs - Medication Issues >> May 20, 2022 9:05 AM Izabel Felipe wrote: Medication Issues Specialist Kayy Espinosa APRN Relationship (if other than patient-full name): [facility] Reason for call: Medication Issue (if symptom based used Triage Subtopic) Message/information for the nurse: Pharmacy is waiting for the Prior Authorization for this medication Name of Medication: Nurtec ODT 75 mg disintegrating tablet (rimegepant) Issue with the medication: Pharmacy needs a Prior Authorization for this medication documented in this encounter Plan of Treatment Upcoming Encounters Date Type Department Care Team (Late st Contact Info) Description 05/02/2024 2:00 PM EST Procedure visit Neurology at [address] [address] [facility] [place] [address] 06/08/2024 10:30 AM EST TH Visit (TeleHealth) Neurology at [address] [address] Kayy Espinosa [facility] [place] [address] documented as of this encounter Visit Diagnoses Not on filedocumented in this encounter Care Teams Drain Layer Relationship Specialty Start Date End Date Belen Bravo PA [address] [place] [address] KR[place] TUBBS [address] PCP - General Internal Medicine 04/05/19 documented as of this encounter
--- OUTSIDE RECORDS SUMMARY | 2024-02-10 01:55 | XMS_ITS | Encounter Summary ---
Author Organization [facility] [place] [address] Care Team Providers Care Forensic Artist Name Role Phone Belen Bravo Primary Care Provider + Reason for Visit * High Dollar Medication (Routine) - Closed Specialty Diagnoses / Procedures Referred By Cadence minaya Referred To Contact Neurology Diagnoses Intractable chronic migraine without aura and with status migrainosus Procedures Onabotulinumtoxin A (BOTOX) Authorizations Request (IN CLINIC) TC ONABOTULINUMTOXINA, 1 UNIT, INJECTION PRO CHEMODENERVATION FACIAL/TRIGEM/CERV MUSC MIGRAINE BOTOX Kayy Espinosa [facility] [place] [address] Kayy Espinosa [facility] [place] [address] Referral ID Status Reason Start Date Expiration Date V isits Requested Visits Authorized [id number] Closed Consult, Test & Treat 10/16/2021 11/18/2023 18 16 Encounter Details Date Type Department Care Team (Late st Contact Info) Description 12/09/2021 3:30 PM EDT Office Visit Neurology at [address] [phone] [place] [address] Chronic migraine without aura, with intractable migraine, [...] Progress Notes * Taisha Myrick MD - 12/09/2021 3:30 PM EDT [facility] PROCEDURE NOTE Procedure: BOTOX (OnabotulinumtoxinA) injections Indication: Chronic migraine. No Contraindications. The patient: Not on antiplatelet or anticoagulant therapy. The patient reports to me that they ARE NOT Date of Last Injection: 08/20/2021 Prior MIDAS Date Procedure MIDAS 05/28/21 Botox #1 - 155 units - Tomaschek 115, 70/90 JONES days, 10/25 severity 08/20/2021 Botox #2 - 155 units - Odermann 135, 45/90 JONES days, 07/26 severity 12/09/21 Botox #3 - 165 units - Li 165, 75/90 JONES days, 10/25 severity QUESTIONNAIRE RESULTS: MIDAS: Patient Reported: More headache predominance in shoulder > occipital area. MIDAS Responses 12/08/2021 Days missed school/work 15 Days productivity at work/school reduced 50 Days did not do household work 35 Days productivity related to housework reduced 50 Days missed family, social or leisure activities 15 Days had headache 75 Pain scale 7 MIDAS Score 165 (MIDAS grade IV, severe disability) MIDAS Adjusted Score 165 PHQ-9: No flowsheet data found. ROSIE-7: No flowsheet data found. INTERIM HISTORY: The patient continues to derive significant benefit from the procedure and wishes to have it repeated today.. No data found. I obtained written informed consent from the patient for the procedure. November 2021 The potential risks and side [...] 70% isopropyl alcohol). 155 units from lot [id number], expiration date 05/18/2024, were injected in the following pattern: 5 [...] of 6 injection sites in trapezius muscles. Additional units Additional Units: 10 units following pain. 5 units in 1 injection site(s) in the right trapezius muscle. 5 units in 1 injection site(s) in the left trapezius muscle. Units discarded: 35 Aseptic technique and negative heme aspiration was used throughout the procedure. The patient tolerated the procedure well and had no complications. The patient was observed for 5 minutes afterwards. As stated above, there were no complications. PLAN: Follow up and continued management as per Kayy Espinosa APRN, next appt 04/15/22 Repeat injections in: 12 weeks. References: Ivelisse [...] on the PREEMPT clinical program. Headache 50(9): 1699-2822. documented in this encounter Plan of Treatment Upcoming Encounters Date Type Department Care Team (Late st Contact Info) Description 05/02/2024 2:00 PM EST Procedure visit Neurology [address] [address] [facility] [place] [address] 06/08/2024 10:30 AM EST TH Visit (TeleHealth) Neurology [address] [address] [facility] [place] [address] documented as of this encounter Visit Diagnoses Diagnosis Chronic migraine without aura, with intractable migraine, so stated, with status migrainosus documented in this encounter Administered Medications Inactive Administered Medications - up to 3 most recent administrations Medication Order MAR Action Action Date Dose Rate Site botulinum toxin type A 200 unit injection 200 Units, Intramuscular, ONCE, On Tue12/09/21 at 1500, 1 dose Given 12/09/2021 3:01 PM EDT 165 Units documented in this encounter Care Teams Forensic Artist Relationship Specialty Start Date End Date Belen Bravo PA [address] [place] [address] [place] [address] PCP - General Internal Medicine 04/05/19 documented as of this encounter
--- OUTSIDE RECORDS SUMMARY | 2024-02-10 01:55 | XMS_ITS | Encounter Summary ---
Author Organization [facility] [place] [address] Care Team Providers Care Corporate Lawyer Name Role Phone Allen Rodriguez MD Primary Care Provider [phone] Reason for Visit * Reason Comments Other episodes of weakness /numbness Encounter Details Date Type Department Care Team ([facility] st Contact Info) Description 10/20/2010 7:45 AM EDT Office Visit [place] [address] Madyson Michael MD [facility] DR PEDIATRIC [place] [address] Leg numbness (Primary Dx); Chronic headaches; Leg weakness; Anxiety Discharge Disposition: Home Social History Tobacco Use [...] Sign Reading Time Taken Comments Blood Pressure 122/65 10/20/2010 8:02 AM EDT Pulse 58 10/20/2010 8:02 AM EDT Temperature - - Respiratory Rate - - Oxygen Saturation - - Inhaled Oxygen Concentration - - Weight 55 kg (121 lb 4.1 oz) 10/20/2010 8:02 AM EDT taken 10/07/10 Height 162.5 cm (5' 3.98) 10/20/2010 8 :02 AM EDT taken 10/07/10 Head Circumference 55.7 cm 10/20/2010 8: 02 AM EDT Body Mass Index 20.83 10/20/2010 8:02 AM EDT Body Mass Index Percentile 64.77% 10/20 8:02 AM EDT Growth Chart: [facility] (Girls, 2- 20 Years) documented in this encounter Progress Notes * Madyson Michael MD - 10/20/2010 8:44 AM EDT Sharmin Salazar was seen for an initial neurologic evaluation of multiple complaints including joint pain, chronic headaches, leg numbness, and weakness on 10/20/2010. Sharmin is a 15 and 5/31wr-[id number]-dqb right-handed eighth grader, who is accompanied by her mother. I have reviewed her previous records in [facility] and [facility]. I am told that she began to experience pain at the hips, ankles, and knees, as well as in the low back approximately one year ago. She has been followed by rheumatology, where extensive lab work has been negative. Recently, a diagnosis of fibromyalgia was made. In addition to the joint discomfort, she describes intermittent bilateral leg numbness, which she describes on the waist to her toes. She describes a tingly sensation, and there have been multiple episodes where she had to be carried, and was apparently unable to walk. There has been no bowel or bladder difficulties. She has noted occasional numbness in the left arm as well. She missed a significant amount of school days this year because of the symptoms, and has been anxious about missing school work and keeping up with her classmates. She appears to have some underlying anxiety and has primary insomnia. I am told that a sleep study is scheduled for the near future. In addition, she has longstanding generalized headache on an almost a continuous basis. Aric-saa-ojamqwlj provide minimal benefit. She describes some visual symptoms, and has been seen twice by ophthalmology. She denies stimulations or vomiting. She has tried cyproheptadine for a brief time, and this was discontinued. A trial of amitriptyline reportedly increased her headaches, and was discontinued after a short trial. Despite these things, she was able to play softball at times this spring, and is described as an excellent student. Past medical history indicates she was born at 35 weeks and spent one extra day in the hospital for jaundice. Growth and development proceeded normally. She was hospitalized once overnight at a year for pneumonia. SHE HAS NO KNOWN ALLERGIES TO MEDICATIONS. Currently takes no medications. Immunizations are up-to-date. Family history indicates she has a 10-year-old sister and a 5-year-old brother, who are well. Father carries a diagnosis of night terrors, has a history of arm numbness, and as a teenager had seizures and back pain. Mother had seizures as an infant and discontinued seizure medicines at age five. She also has a history of migraines reportedly due to hypothyroidism. No one else in the family has no known neurologic disease. Social history indicates Sharmin lives with her siblings and parents. Review of systems includes eye astigmatism and wearing eye glasses, but is otherwise contained in the HPI above. Physical exam shows a well-appearing cooperative adolescent. Cardiac exam is benign. There is no murmur or irregularity. Chest is clear to auscultation. Spine is straight. There are no neurocutaneous lesions. There is no tenderness with percussion of the spine. She has full range of motion of the cervical and lumbar spine. She is normocephalic. Thyroid is not enlarged. Gait is normal heel-toe. Romberg is negative. She can stand on her toes as well as her heels. Jump is normal. Tandem is normal. Mental status and language are age-appropriate without errors. Cranial nerves II through XII are intact. Specifically, pupils are equal, round, and reactive, and eye movements are full and conjugate. [place] are full to confrontation. Optic, fundi are benign with sharp discs and normal vessels. Face is symmetric with movement and to sensation. Hearing is intact. Tongue is midline. Palate elevates symmetrically. There is no pronator drift. There is no appendicular ataxia. Muscle bulk and tone are normal. Strength is 5/5 at deltoids, biceps, triceps, wrist extension, hip flexion, and knee extension. Sensory is intact to light touch, temperature and joint position. Deep tendon reflexes are 1+ at the biceps, brachioradialis, and knees, and 2+ at the ankles. ASSESSMENT: 1. Symmetric nonfocal elemental neurologic exam. 2. Intermittent lower extremity symptoms without bowel or bladder involvement. We will rule out the unlikely possibility of structural disease in the spine or brain. 3. Fibromyalgia, followed by rheumatology. 4. Insomnia, sleep study scheduled. 5. HAs, failed amitriptyline and OTCs 5. Suspect anxiety is playing a role. RECOMMENDATIONS: 1. Brain and spine MRI to be arranged. 2. Mother should call several days afterwards to discuss the findings. 3. We will begin Topamax as a headache prophylaxis. 4. Discussed with mother possibility that anxiety is playing a role. She will attempt to identify a psychiatry referral locally. 5. Mo to call in 3 weeks time regarding response to topamax; neuro f/u will Be determined at that time. documented in this encounter Plan of Treatment Upcoming Encounters Date Type Department Care Team (Late st Contact Info) Description 05/02/2024 2:00 PM EST Procedure visit Neurology at [address] [address] [facility] [facility] [place] [address] 06/08/2024 10:30 AM EST TH Visit (TeleHealth) Neurology at [address] [phone] [facility] [place] [address] documented as of this encounter Visit Diagnoses Diagnosis Leg numbness- Primary Disturbance of skin sensation Chronic headaches Headache Leg weakness Other musculoskeletal symptoms referable to limbs Anxiety Anxiety state, unspecified documented in this encounter Care Teams Corporate Lawyer Relationship Specialty Start Date End Date Allen Rodriguez MD [address] [place] [address] PCP - General 03/10/10 06/26/13 documented as of this encounter
--- OUTSIDE RECORDS SUMMARY | 2024-02-10 01:55 | XMS_ITS | Encounter Summary ---
Author Organization [facility] [place] [address] Care Team Providers Care Gem Setter Name Role Phone Belen Bravo Primary Care Provider + Reason for Visit * Reason Onset Date Comments Appointment 05/27/2020 Encounter Details Date Type Department Care Team (Late st Contact Info) Description 05/27/2020 Telephone Neurology at [facility] [address] [place] [address] Yoni Hudson MD [facility] [place] [address] Appointment Social History Tobacco Use Types Packs/Day [...] encounter Miscellaneous Notes * Telephone Encounter - Leana Rucker - 06/25/2020 3:08 PM EST Patient has appointment scheduled for 08/18 * Telephone Encounter - Leana Rucker - 06/18/2020 3:56 PM EST LM on patient's cell phone 2nd attempt * Telephone Encounter - Bianka Ramos - 05/27/2020 10:35 AM EST Return in about 3 months (around 08/23/2020) for Telehealth w/ S. Becca LVM on patient's cell phone and sent message to her [facility] documented in this encounter Plan of Treatment Upcoming Encounters Date Type Department Care Team (Late st Contact Info) Description 05/02/2024 2:00 PM EST Procedure visit Neurology at [address] [address] [facility] [place] [address] 06/08/2024 10:30 AM EST TH Visit (TeleHealth) Neurology at [address] [address] [facility] [place] [address] documented as of this encounter Visit Diagnoses Not on filedocumented in this encounter Care Teams Gem Setter Relationship Specialty Start Date End Date Belen Bravo PA [address] [place] [address] [place] [address] PCP - General Internal Medicine 04/05/19 documented as of this encounter
--- OUTSIDE RECORDS SUMMARY | 2024-02-10 01:55 | XMS_ITS | Encounter Summary ---
Author Organization [facility] [place] [address] Care Team Providers Care Concrete Products Dispatcher Name Role Phone Belen Bravo Primary Care Provider + Encounter Details Date Type Department Care Team (Late st Contact Info) Description 06/26/2021 Orders Only [place] [address] Cara Collado [facility] [place] [address] Social History Tobacco Use Types Packs/Day Years [...] 2:00 PM EST Procedure visit Neurology at [address] [phone] Aaron Ruiz [facility] [place] [address] 06/08/2024 10:30 AM EST TH Visit (TeleHealth) Neurology at [address] [address] Kayy Espinosa APRN [facility] [place] [address] documented as of this encounter Procedures Procedure Name Priority Date/Time Associated Diagnosis Comments QUANTIFERON-TB GOLD Routine 06/26/2021 1 0:38 AM EST documented in this encounter Results * QuantiFERON-TB Gold (06/26/2021 10:38 AM EST) Quantiferon Nil 0.037 IU/mL [facility] QFT TB Ag1-Nil -0.005 IU/mL [facility] QFT TB Ag2-Nil 0.002 IU/mL [facility] Quantiferon Mitogen-Nil 9.963 IU/mL [facility] Quantiferon-TB Gold Negative Negative [facility] Quantiferon Tb Interp M. tuberculosis infection NOT likely A negative specimen should have a TB1 Ag minus Nil value and TB2 Ag minus Nil value of less than 0.35 IU/mL OR a TB1 Ag minus Nil or TB2 Ag minus Nil value greater than or equal to 0.35 IU/mL AND a TB Ag minus Nil value from the same tube of less than 25% of the Nil value. A negative specimen must also have a mitogen minus Nil value greater than or equal to 0.5 IU/mL. A negative QFT-Plus result does not preclude the possibility of M. tuberculosis infection. False negative results can occur due to stage of infection (specimen obtained prior to the development of immune response), co-morbid conditions which affect immune function, or other immunological factors. [facility] Blood Venous Draw / Unknown 06/26/2021 10:38 AM EST 06/29/2021 7:32 AM EDT Narrative Resulting Agency Comment Spec In Lab Cara Collado APRN CHEMISTRY ORDERABLES [facility] [place] [address] documented in this encounter Visit Diagnoses Not on filedocumented in this encounter Care Teams Concrete Products Dispatcher Relationship Specialty Start Date End Date Belen Bravo PA [address] [place] [address] [place] [address] PCP - General Internal Medicine 04/05/19 documented as of this encounter
--- OUTSIDE RECORDS SUMMARY | 2024-02-10 01:55 | XMS_ITS | Encounter Summary ---
Author Organization [facility] [place] [address] Care Team Providers Care Supervisor Payroll Name Role Phone Belen Bravo Primary Care Provider + Reason for Visit * Reason Onset Date Comments Prior Authorization 01/27/2021 GOKUL Encounter Details Date Type Department Care Team (Late st Contact Info) Description 01/27/2021 Telephone Neurology at [address] [phone] Yoni Hudson MD [facility] [place] [address] Prior Authorization (GOKUL ) Social History Tobacco Use Types Packs/Day [...] encounter Miscellaneous Notes * Telephone Encounter - Litzy Olsen RN - 03/05/2021 12:08 PM EST Images from the original note were not included. * Telephone Encounter - Litzy Olsen RN - 01/28/2021 11:38 AM EDT SHARMIN DE SOUZA (Parker: [email or web address]) - [phone] Status: Sent to Plan today Next Steps: The plan will fax you a determination, typically within 1 to 5 business days. How do I follow up? Drug: Trudhesa 0.725MG/ACT aerosol Form: [facility] Commercial Prior Authorization Request General Form Prior Authorization for General Prescription Requests phone; fax Original Claim Info: 70 * Telephone Encounter - Litzy Olsen RN - 01/27/2021 2:11 PM EDT SHARMIN DE SOUZA (Parker: [email or web address]) - [phone] Status: Sent to Plan today Next Steps: The plan will fax you a determination, typically within 1 to 5 business days. How do I follow up? Drug: Trudhesa 0.725MG/ACT aerosol Form: [employer] Non-Medicare Formulary Exception / Prior Authorization Request Form Prior Authorization for [employer] non-Medicare members (NOT FOR MEDICARE PATIENTS) phone; fax Original Claim Info: 70 documented in this encounter Plan of Treatment Upcoming Encounters Date Type Department Care Team (Late st Contact Info) Description 05/02/2024 2:00 PM EST Procedure visit Neurology at [address] [address] Aaron Ruiz APRN [facility] [place] [address] 06/08/2024 10:30 AM EST TH Visit (TeleHealth) Neurology at [address] [address] Kayy Espinosa APRN [facility] [place] [address] documented as of this encounter Visit Diagnoses Not on filedocumented in this encounter Care Teams Supervisor Payroll Relationship Specialty Start Date End Date Belen Bravo PA [address] [place] [address] [place] [address] PCP - General Internal Medicine 04/05/19 documented as of this encounter
--- OUTSIDE RECORDS SUMMARY | 2024-02-10 01:55 | XMS_ITS | Encounter Summary ---
[place] [address] Care Team Providers Care Employee Communications Specialist Name Role Phone Allen Rodriguez MD Primary Care Provider [phone] Reason for Visit * Reason Onset Date Comments Follow-up 11/18/2010 Does she need to come for follow-up appt with Dr. Michael? Encounter Details Date Type Department Care Team (Late st Contact Info) Description 11/18/2010 Telephone Pediatric [place] [address] Madyson Michael MD [facility] [place] [address] Follow-up (Does she need to come for follow-up appt with Dr. Michael?) Social History Tobacco Use Types Packs/Day Years [...] encounter Miscellaneous Notes * Telephone Encounter - Rosette Napier RN - 11/18/2010 4:46 PM EDT Sharmin was last seen by Dr. Michael on 10/20/10 for headaches and joint pain. Topamax was prescribed but stopped when she was sick recently. It was restarted, but caused dizziness. I advised that she might try taking just one dose at night (25mg) at first and slowly increasing if possible. Sharmin has been referred to Dr. Guzmán (marketing communications specialist). The appointment is scheduled for January. It would be possible to coordinate the appointment with Dr. Michael for the same day if she is here. Her parents could keep in touch by phone as to how the Topamax is helping for headache prevention. * Telephone Encounter - Lindsey Olmos - 11/18/2010 4:06 PM EDT Mom was calling because she is not sure if it is necessary for them to follow up with Dr. Fernanda puente. If so they are coming to see Dr. Landry on 01/27/11 at 3:00pm and are wondering if this couldbe coordinated because of their long drive. documented in this encounter Plan of Treatment Upcoming Encounters Date Type Department Care Team (Late st Contact Info) Description 05/02/2024 2:00 PM EST Procedure visit Neurology at [address] [address] Aaron Ruiz, [facility] [place] [address] 06/08/2024 10:30 AM EST TH Visit (TeleHealth) Neurology at [address] [address] Kayy Espinosa [facility] [place] [address] documented as of this encounter Visit Diagnoses Not on filedocumented in this encounter Care Teams Employee Communications Specialist Relationship Specialty Start Date End Date Allen Rodriguez MD [address] [place] [address] [place] [address] PCP - General 03/10/10 06/26/13 documented as of this encounter
--- OUTSIDE RECORDS SUMMARY | 2024-02-10 01:55 | XMS_ITS | Encounter Summary ---
Author Organization [facility] [place] [address] Care Team Providers Care Cardiac Monitor Name Role Phone Belen Bravo Primary Care Provider + Encounter Details Date Type Department Care Team (Latest Contact Info) Description 05/28/2021 Travel Social History Tobacco Use Types Packs/Day [...] 2:00 PM EST Procedure visit Neurology at [address] [address] Aaron Ruiz [facility] [place] [address] 06/08/2024 10:30 AM EST TH Visit (TeleHealth) Neurology at [address] [address] Kayy Espinosa [facility] [place] [address] documented as of this encounter Visit Diagnoses Not on filedocumented in this encounter Care Teams Cardiac Monitor Relationship Specialty Start Date End Date Belen Bravo PA [address] [place] [address] [place] [address] PCP - General Internal Medicine 04/05/19 documented as of this encounter
--- OUTSIDE RECORDS SUMMARY | 2024-02-10 01:55 | XMS_ITS | Encounter Summary ---
Author Organization [facility] [place] [address] Care Team Providers Care Ironing Pleater Name Role Phone Belen Bravo Primary Care Provider + Reason for Referral * High Dollar Medication (Routine) - Closed Specialty Diagnoses / Procedures Referred By Cadence t Referred To Contact Neurology Diagnoses Intractable chronic migraine without aura and with status migrainosus Procedures Onabotulinumtoxin A (BOTOX) Authorizations Request (IN CLINIC) TC ONABOTULINUMTOXINA, 1 UNIT, INJECTION PRO CHEMODENERVATION FACIAL/TRIGEM/CERV MUSC MIGRAINE BOTOX Kayy Espinosa [employer] [facility] [place] [address] Kayy Espinosa [employer] [facility] [place] [address] Referral ID Status Reason Start Date Expiration Date V isits Requested Visits Authorized [id number] Closed Consult, Test & Treat 10/16/2021 11/18/2023 18 16 Encounter Details Date Type Department Care Team (Latest Contact Info) Description 01/19/2021 10:30 AM EDT TH Visit (TeleHealth) Neurology at [address] [address] Yoni Hudson MD [facility] [place] [address] Chronic migraine without aura, with intractable migraine, so stated, with status migrainosus; Intractable chronic migraine without aura and with [...] Progress Notes * Yoni Hudson MD - 01/19/2021 10:30 AM EDT Neurology [facility] TeleHealth Visit 01-19-21 Last appointment: 08-18-20 Pain today: 4 Interval Headache Hx: Pt with continuous chronic migraine on erenumab, first dose 05-26-20. In August I prescribed naratriptanwith consideration for Nerivio, a non-oral triptan, or DHE NS. She is having more and more JONES free days with each 5 mos. She has not noticed this. She has tried naratriptan a few times, and it did not work. Patient Reported: MIDAS Responses 01/19/2021 Days missed school/work 3 Days productivity at work/school reduced 30 Days did not do household work 3 Days productivity related to housework reduced 30 Days missed family, social or leisure activities 3 Days had headache 45 Pain scale 6 MIDAS Score 69 (MIDAS grade IV, severe disability) MIDAS Adjusted Score - ?? Prior Treatments: TCAs ?1. Amitriptyline SSRIs ?2. Citalopram ?3. Sertraline AEDs ?4. TPM Neuroleptics ?5. Promethazine NSAIDs ?6. Ibuprofen Misc ?7. APAP Narcotics ?8. Tramadol ?9. Oxycodone Beta blockers ?10. Propranolol MABs ?11. Erenumab Triptans ?12. Iliana- dizzy and did not work well 13. Riza - made her drowsy 14. Cher - did not work ?? New Health Issues: See HPI New Family History: no Past Medical History: Diagnosis Date ??? Chronic migraine without aura, with intractable migraine, so stated, with status migrainosus ??? Chronic pain head, back, hips, knees, ankle ??? ROSIE (generalized anxiety disorder) ??? Migraine with aura, intractable, with status migrainosus Past Surgical History: Procedure Laterality Date ??? APPENDECTOMY ??? TONSILLECTOMY AND ADENOIDECTOMY Studies to Review: no Current Outpatient Medications on File Prior to Visit Medication Sig Dispense Refill ??? sertraline (ZOLOFT) 100 mg Tablet Take 100 mg by mouth daily. Total dose 150 mg daily ??? busPIRone (Buspar) 10 mg Tablet Take 10 mg by mouth 2 times daily. ??? naratriptan (Amerge) 2.5 mg Tablet Take 1 tablet by mouth as needed for Migraine (Max 2/day). 9tablet 11 ??? erenumab-aooe (Aimovig Autoinjector) 140 mg/mL Auto-Injector Inject 140 mg subcutaneously every28 days. 1 Pen 11 ??? rizatriptan (MAXALT) 10 mg Tablet Take 1 tablet by mouth as needed for Migraine (max 3/d). 9 tablet 11 ??? famotidine (Pepcid) 20 mg Tablet Take 20 mg by mouth 2 times daily. ??? sertraline (Zoloft) 50 mg Tablet Take 50 mg by mouth daily. Total dose of 150 mg daily ??? levothyroxine (Synthroid) 25 mcg Tablet Take 25 mcg by mouth daily. No current facility-administered medications on file prior to visit. No Known Allergies REVIEW OF SYSTEMS: See HPI Impression & plan: 1. Chronic migraine without aura, with intractable migraine, so stated, with status migrainosus She has a 50% drop in JONES days on the erenumab, so I do not want to stop that. Instead, I would liketo add BTX to get synergy. This patient meets the FDA criteria for Chronic Migraine, with headache at least 15 days per month,at least 4 hours per day (hers are at 15 d/mo and previously were at 31/31 days per month). She hasunsuccessfully tried at least 14 medications, and has had lack of success with each of the big three anti- migraine prevention categories, antidepressants, anti-epilepsy drugs, antihypertensives. Erenumab is only partially effective. I will submit for BTX for her. Synergy for BTX + MAB is established: 1. Zandra AM, Joe BM, Edwin ZelayaD, Miley A, Vickey G, Zay L, Gerhard Ramos A. Real-World Evidence for Control of Chronic Migraine Patients Receiving CGRP Monoclonal Antibody TherapyAdded to OnabotulinumtoxinA: A Retrospective Chart Review. Pain Ther. 2020Aug 06. doi: 10.1007/s401 [id number]-x. Epub ahead of print. PMID: 16148469. 2. Negro F, Abdi C, Harrison RB, Volmickey S. Efficacy and Tolerability of Calcitonin Clsa-SmgdwlaTzftkme-Emwadtua Monoclonal Antibody Medications as Add- on Therapy to OnabotulinumtoxinA in Patients with Chronic Migraine. Pain Med. 2020Nov 21;22(8):6413-0032. doi: 10.1093/pm/twlp975. PMID: 99295292. 3. Familia Oro, TP, Ashley H, Ashley Crespo, Lew R. Dual Therapy With Anti-CGRP Monoclonal Antibodies and Botulinum Toxin for Migraine Prevention: Is There a Rationale? Headache. 2020 Dave;60(6):0628-5952. doi: 10.1111/head.84761. Epub 2019September 05. PMID: 73583740. She has had 3 triptans fail, so I will prescribe DHE NS Trudhesa for her. AIMOVIG Follow Up [facility] Patient name: Sharmin Mayo Date of : 1995 Patient Reported: MIDAS Responses 01/19/2021 Days missed school/work 3 Days productivity at work/school reduced 30 Days did not do household work 3 Days productivity related to housework reduced 30 Days missed family, social or leisure activities 3 Days had headache 45 Pain scale 6 MIDAS Score 69 (MIDAS grade IV, severe disability) MIDAS Adjusted Score - Date you began using Aimovi05-26-20 How many months have you administered Aimovig 140 m How many migraine/headache days per month did you have BEFORE starting Aimovi How many migraine/headache days per month have you had SINCE starting Aimovi Have you noticed that your headaches/migraines are not as severe since starting Aimovig: Not less severe, but shorter Have you used less of your abortive medications (triptans, NSAIDs, etc) since starting Aimovig: No Are your abortive medications working better to abort migraines since starting Aimovig: no Do you think the Aimovig is helping: yes Side effects: no Is the medication wearing off ? N/A Is the medication preventing your MENSTRUAL Migraine? no Follow-up: 5 mos I spent 40 minutes in this visit directly and with prep time today 01-19-21. Sharmin Mayo gave verbal consent over the phone for this TeleHealth visit. The patient understandsthat this visit will be billed to their insurance, similar to a clinic visit. Yoni Hudson MD documented in this encounter Plan of Treatment Upcoming Encounters Date Type Department Care Team (Late st Contact Info) Description 05/02/2024 2:00 PM EST Procedure visit Neurology at [address] [place] [address] Aaron Ruiz [facility] [address] 06/08/2024 10:30 AM EST TH Visit (TeleHealth) Neurology at [address] [address] Kayy Espinosa [facility] [place] [address] documented as of this encounter Visit Diagnoses Diagnosis Chronic migraine without aura, with intractable migraine, so stated, with status migrainosus 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
--- OUTSIDE RECORDS SUMMARY | 2024-02-10 01:55 | XMS_ITS | Encounter Summary ---
Author Organization [facility] [place] [address] Care Team Providers Care Rubber Goods Finisher Name Role Phone Belen Bravo Primary Care Provider + Encounter Details Date Type Department Care Team (Late st Contact Info) Description 10/15/2021 3:30 PM EDT Office Visit Neurology at [address] [phone] Kayy Espinosa, [facility]ELIC[facility] [place] [place] [address] Chronic migraine without aura, with intractable migraine, [...] Pulse 73 10/15/2021 3:22 PM EDT Temperature - - Respiratory Rate - - Oxygen Saturation - - Inhaled Oxygen Concentration - - Weight 52.2 kg (115 lb) 10/15/2021 3:22 PM EDT Height 162.6 cm (5' 4) 10/15/2021 3:22 PM EDT r eported Body Mass Index 19.74 10/15/2021 3:22 PM EDT documented in this encounter Patient Instructions * Patient Instructions* Kayy Espinosa APRN - 10/15/2021 4:00 PM EDT Restart Aimovig Consider Magnesium 500mg, B2 (Riboflavin) 400mg, CoQ10 300mg documented in this encounter Progress Notes * Kayy Espinosa APRN - 10/15/2021 3:30 PM EDT [facility] [place] [facility] [place] Care Patient name: Sharmin Mayo Date of : 1995 PCP: HAIDER Alatorre ID: Sharmin Mayo is a 26 y.o. female with a past medical history of chronic pain (neg rheum work up w/ neg or nl NANI, HLAB27, inflammatory markers) synthroid, and generalized anxiety disorder who presents as a transfer of care. Last visit with Yoni Hudson MD on 01/19/2021 (tele). At this time, Sharmin Mayo was being seen in Headache Clinic for chronic migraine without aura. Neg renal stones or asthma. HPI: Completed by chart review and patient interview Sharmin first had headaches at age 13 or 14. She remembers sitting in a dark room d/t light sensitivity. She missed a lot of school in andi high and HS. No vomiting. Sharmin saw Dr. Madyson Lazaro in [place] [facility] and once in 2013. During this time she had continuous chronic migraine. In 2018 Sharmin was seen by Neurology in [place] and started on lower dose of Aimovig. Stopped d/t . She presented to Dr. Ivelisse Hudson for initial visit on 06/26/2019. Since initial visit she has been placed back on Aimovig (started after prior care), and started Botox as well. She was having continuous headaches at the time of initial consultation, ranging from mild to moderate and severe. Headaches start in frontalis and temporalis region, move bilaterally up head and through base of skill and shoulders. Sometimes has floaters in eyes, as well as mild aphasia before headache by 20-30 minutes. She feels drowsy with heavy head and sluggish body prior to headaches. At their very worst they feel like ice pick behind baptism, which can be unilateral. Photophobia, phonophobia, sometimes smell sensitivity. Does have throbbing sound/feeling. No whooshing. Not initiated by bending or position changes. Does sometimes have tearing of unilateral eye, no other autonomic symptoms. Worse with activity. She does feel tired, confused and clumsy with the pain. She notices if she wakes up with headache then the whole day will be painful. OTC treatments do not help. If untreated, headache will last an hour (intense pain). Has jaw pain but has wisdom teeth removal scheduled in October - likely the cause. Triggers include not hydrating or eating. Unfortunately Sharmin is 3 weeks overdue for her Aimovig injection due to insurance. This was sortedout and she will be picking up her next injection this afternoon from [facility]. She noticed a significant increase in headaches while off the Aimovig. She noticed the headaches were increasing in intensity close to when her next dose was due. The past few weeks she has had constant pain every day that has changed in intensity. She does believe that she has had some response to the Botox already at 2 treatments however it is hard for her to tell with this change in Aimovig. For acute treatment the Migranal has not been working to abort her pain. Triptans have not worked in the past historically or have had too many side effects. Patient Reported: MIDAS Responses 10/15/2021 Days missed school/work 5 Days productivity at work/school reduced 45 Days did not do household work 25 Days productivity related to housework reduced 45 Days missed family, social or leisure activities 10 Days had headache 70 Pain scale 6 MIDAS Score 130 (MIDAS grade IV, severe disability) MIDAS Adjusted Score - MIDAS History Date JONES Pain JONES days Score 01/19/202109/25 45/90 69 10/15/2109/25 70/90 130 Current preventative regimen and frequency: LfBazv26 mg twice daily (PCP -mood) Zoloft 150 mg daily (PCP -mood) Aimovig auto injector 140 mg/ML Botox treatment #2 Current abortive regimen and frequency: Migranal 0.5 mg per pump as needed: used 3x past three weeks, does abort pain Medications: Current Outpatient Medications Medication Sig Dispense Refill ??? dihydroergotamine (MIGRANAL) 0.5 mg/pump act. (4 mg/mL) [place], Non-Aerosol 1 spray by Nasal route as needed for Migraine (Trudhesa brand name only, 1.45 mg total dose, max 3 doses per day). TRUDHESA DHE NS brand name only: one spray each nostril = one dose, max 3 doses per day , tried daniel, blaze, riza 4 mL 12 ??? sertraline (ZOLOFT) 100 mg Tablet Take 100 mg by mouth daily. Total dose 150 mg daily ??? busPIRone (Buspar) 10 mg Tablet Take 10 mg by mouth 2 times daily. ??? sertraline (Zoloft) 50 mg Tablet Take 50 mg by mouth daily. Total dose of 150 mg daily ??? levothyroxine (Synthroid) 25 mcg Tablet Take 25 mcg by mouth daily. ??? erenumab-aooe (Aimovig Autoinjector) 140 mg/mL Auto-Injector Inject 140 mg subcutaneously every28 days. (Patient not taking: Reported on 10/15/2021) 1 mL 11 ??? famotidine (Pepcid) 20 mg Tablet Take 20 mg by mouth 2 times daily. No current facility-administered medications for this visit. Allergy: No Known Allergies Family History: Family History Problem Relation Age of Onset ??? Migraines Father Social History: Family/lifestyle: Has 2-year-old daughter named Glenna, works at [employer] in [place] Alcohol consumption: Occasionally 1 drink per week Smoking: No Caffeine: 1 cup daily max, goes through stretches without any Drinking: Rarely, 1 standard drink per week Contraception: Tracking cycle and barrier Review of systems: Constitutional: Negative for fever, chills, weight loss or gain, never HIV, hepatitis, or cancer hx Eyes: Negative for vision changes, last dilated eye exam normal ENT: Negative for hearing loss CV: Negative for chest pain, palpitations Resp: Negative for cough, shortness of breath GI: +rare nausea with JONES, no constipation with AImovig Psych: +Hx depressed mood/anxiety, particularly ~2yrs ago, Zoloft and Buspar per PCP well managed now Integumentary: Negative for rashes Neuro ROS: See HPI Physical Exam: Vitals: BP 122/71 Pulse 73 Ht 162.6 cm (5' 4) Comment: reported Wt 52.2 kg (115 lb) BMI 19.74 kg/m?? Constitutional: 26 y.o. female appears stated age, well nourished, well developed, in no acute distress HEENT: Head atraumatic, normocephalic. Sclera non-icteric. CV: RRR, S1, S2, no murmurs, rubs or gallops. Radial pulses 2+ with no edema Resp: Chest rise and fall symmetric, all jackson clear with no adventitious sounds Integumentary No obvious rashes Neuro: ?? MS: Alert and oriented. Speech is spontaneous, smooth and articulate without dysarthria. Memory intact to the situation and disease history. Follows simple and complex commands. ?? CN: ?? PERRL, EOMI, visual jackson full ?? Facial sensation intact throughout ?? No facial asymmetry, movement intact above mask ?? Hearing grossly intact ?? Palate and tongue deferred below mask ?? SCM and trap strength intact. ?? Motor: Normal bulk and tone. No clonus. No pronator drift. ?? UE: ?? Arm abduction at shoulder: 5/5 R, 5/5 L ?? Elbow extension: 5/5 R, 5/5 L ?? Elbow flexion: 5/5 R, 5/5 L ?? LE: ?? Grossly 5/5 ?? Sensation: ?? UEs: Grossly intact to light touch ?? LEs: Grossly intact to light touch ?? Reflexes: ?? UE DTRs: ?? Biceps 2+R, 2+L ?? Brachioradialis 2+R, 2+L. ?? LE DTRs: ?? Patellar 2+R, 2+L ?? Coordination: Finger to nose without dysmetria/ataxia ?? Gait and Sation: Gait fluid, stable and steady without difficulty or tremor. Appropriate stance and arm swing.Negative Romberg. Labs: No results found for this or any previous visit (from the past 24 hour(s)). Diagnostic Tests and Imaging/Previous Workup: Please see e-record for full details MRI brain with and without 11/02/2010 IMPRESSION: ?? Normal brain MR. Assessment and plan: Sharmin Mayo is a 26 y.o. female with a past medical history of chronic pain (neg rheum work up w/ neg or nl NANI, HLAB27, inflammatory markers) synthroid, and generalized anxiety disorder who presents with chronic migraine with and without aura. Overall, Sharmin Mayo is presenting with history and physical exam that is consistent with a diagnosis of chronic migraine with and without aura, as denoted by the ICHD-3 criteria in bold and presentation of symptoms >15 days per 3 months: A. At least five attacks fulfilling criteria B-D B. Headache attacks lasting 4-72 hr (untreated or unsuccessfully treated) C. Headache has at least two of the following characteristics: 1. Unilateral position 2. Pulsating quality 3. Moderate or severe pain intensity 4. Aggravation or by causing avoidance of routine physical activity (eg, walking or climbing stairs) D. During headache at least one of the followin. Nausea and/or vomiting 2. Photophobia and phonophobia E. Not better accounted for by another ICHD-3 diagnosis A. At least two attacks fulfilling criteria B and C B. One or more of the following fully reversible aura symptoms: 1. Visual 2. Sensory 3. Speech and/or language 4. Motor 5. Brainstem 6. Retinal C. At least three of the following six characteristics: 1. At least one aura symptom spreads gradually over >5 minutes 2. Two or more aura symptoms occur in succession 3. Each individual aura symptom lasts 5-60 minutes 4. At least one aura symptom is unilateral 5. At least one symptom is positive 6. The aura is accompanied, or followed within 60 minutes, by headache D. Not better accounted for by another ICHD-3 diagnosis. Sharmin initially experienced a 50% drop in headaches on Aimovig. Unfortunately due to insurance sheis 3 weeks late on her Aimovig dose, which has caused a leon increase of headache days from 45 to 70 out of 90. She will be restarted on this today. She has only had 2 Botox treatments but she does notice that her headaches are somewhat responsive already. This is a reassuring sign for future treatment, as it can take up to 9 months to show full efficacy. Plan to continue on Aimovig and Botox for synergistic prevention of chronic migraine. Discussed both Aimovig and Botox and the unknown/harmful impact on development, as well as the near month long half-life of Aimovig. Sharmin is usingbarrier method and tracking her cycle at this time. Typically [facility] [place] recommends contraceptive method (IUD, implant, oral contraceptives) prior to initiation of injectable MAB. Through joint decision-making, plan to continue with these treatments. Presently Sharmin does not have an effective acute treatment. Plan to reassess after reestablishmentof control on Aimovig and Botox to assess more accurately for target headache. If Migranal continues to be ineffective may consider Nurtec. Triptans have been ineffective or caused side effects. Plan to see Sharmin in 6 months via tele health to discuss effectiveness of Botox and Aimovig, and discuss acute treatment options. Synergy for BTX + MAB is established: 1. Zandra AM, Joe BM, Edwin ZelayaD, Miley A, Vickey G, Zay L, Gerhard Ramos A. Real-World Evidence for Control of Chronic Migraine Patients Receiving CGRP Monoclonal Antibody TherapyAdded to OnabotulinumtoxinA: A Retrospective Chart Review. Pain Ther. 2020Aug 06. doi: 10.1007/s401 [id number]-x. Epub ahead of print. PMID: 33703644. 2. Negro F, Abdi C, Harrison RB, Ina S. Efficacy and Tolerability of Calcitonin Whbo-SbejfbrVfzrpqh-Isukuzii Monoclonal Antibody Medications as Add- on Therapy to OnabotulinumtoxinA in Patients with Chronic Migraine. Pain Med. 2020 6;22(8):1409-8610. doi: 10.1093/pm/vcxs252. PMID: 47972276. 3. Familia L, TP, Ashley H, Ashley M, Lew R. Dual Therapy With Anti-CGRP Monoclonal Antibodies and Botulinum Toxin for Migraine Prevention: Is There a Rationale? Headache. 2020 Sep;60(6):3004-8745. doi: 10.1111/head.10785. Epub 2019September 05. PMID: 14019127. #Chronic migraine with and without aura General Recommendations: - Keep a Headache diary - Work on sleep schedule, sleep hygeine as able - Daily exercise 30 minutes per day - keep hydrated - stop all caffeine - Stress reduction For prevention: Consider Magnesium 500mg, B2 (Riboflavin) 400mg, CoQ10 300mg Continue Aimovig 140 mg/mL auto injector Continue Botox For severe JONES Migraine 0.5 mg per pump spray [facility] in reviewing history, formulating and discussing diagnosis and plan, and education. This office note has been dictated - please excuse minor typos. Kayy Espinosa APRN Department of Neurology [facility] Medications Tried ([x] checked have been tried [...] [] Ajovy [] Emgality [] Vyepti Toxins: [] OnabotulinumtoxinA (Botox) Gepants [] Ubrelvy (ubrogepant) [] Nurtec (rimegepant) [] Qulipta (atogepant) Ditans - high-affinity 5-HT1F receptor agonist [] Reyvow (lasmiditan) Supplements: [] Butterbur [] Coenzyme Q10 [] Feverfew [] Magnesium [] Melatonin [] Migrelief (B2, mag, feverfew) [] Vitamin B2 (riboflavin) Other: [] Boswellia Karon [] Buspirone (Buspar) [] Doxycycline [] Lidocaine patch (Lidoderm) [] [place] [] Memantine (Namenda) [] Montelukast (Singulair) [] Naloxone [] Oxygen Triptans oral: [] Almotriptan (Axert) [] Eletriptan (Relpax) [] Frovatriptan (Frova) [x] Naratriptan (Amerge) [x] Rizatriptan (Maxalt) SE: drowsy [x] Sumatriptan (Imitrex) SE: dizzy, didn't work [] Sumatriptan/Naproxen (Treximet) [] Zolmitriptan (Zomig) Triptans [...] [] Acupuncture [] Acupressure [] Biofeedback [] Chain Pegger [] Cognitive Behavioral Therapy [] Craniosacral therapy [] Massage therapy [] Physical therapy Benzodiazepines: [] Alprazolam (Xanax) [] Chlordiazepoxide (Librium) [] Clonazepam (Klonopin) [] Diazepam (Valium) [] Lorazepam (Ativan) [] Temazepam (Restoril) Combination/Other Analgesics: [] Acetaminophen (Tylenol) [] Acetaminophen/aspirin/caffeine (Excedrin/Pamprin) [] Acetaminophen/caffeine/pyrilamine maleate (Midol) [] Acetaminophen/dichloralphenazone/ isometheptene (Midrin) Opioids/Narcotics/Controlled Substances: [] Acetaminophen/Codeine (Tylenol #3) [] Acetaminophen/Hydrocodone ([place]/Vicodin) [] Acetaminophen/Oxycodone (Percocet) [] Butalbital/aspirin/caffeine/codeine (Fiorinal with [...] 2:00 PM EST Procedure visit Neurology at [address] [phone] Aaron Ruiz [facility] [place] [address] 06/08/2024 10:30 AM EST TH Visit (TeleHealth) Neurology at [address] [phone] Kayy Espinosa APRN [facility] [place] [address] documented as of this encounter Visit Diagnoses Diagnosis Chronic migraine without aura, with intractable migraine, so stated, with status migrainosus documented in this encounter Care Teams Rubber Goods Finisher Relationship Specialty Start Date End Date Belen Bravo PA [address] [place] [address] [place] [address] PCP - General Internal Medicine 04/05/19 documented as of this encounter
--- OUTSIDE RECORDS SUMMARY | 2024-02-10 01:55 | XMS_ITS | Encounter Summary ---
Author Organization [facility] [place] [address] Care Team Providers Care Web Content Writer Name Role Phone Belen Bravo Primary Care Provider + Encounter Details Date Type Department Care Team (Latest Contact Info) Description 08/18/2020 9:30 AM EDT TH Visit (TeleHealth) Neurology at [address] [address] Yoni Hudson MD [facility] [place] [address] Chronic migraine without aura, with intractable migraine, [...] Progress Notes * Yoni Hudson MD - 08/18/2020 9:30 AM EDT Neurology Headache Center TeleHealth Visit 08-18-20 Last appointment: 05-26-20 Pain today:8 Interval Headache Hx: Pt with continuous chronic migraine, prescribed erenumab, first dose 05-26-20. She has dropped to 15 JONES days per month, and they are not lasting as long. She has JONES free days. Time to peak 30 minutes. Patient Reported: MIDAS Responses 08/18/2020 Days missed school/work 0 Days productivity at work/school reduced 25 Days did not do household work 15 Days productivity related to housework reduced 30 Days missed family, social or leisure activities 10 Days had headache 50 Pain scale 7 MIDAS Score 80 (MIDAS grade IV, severe disability) MIDAS Adjusted Score - ?? Prior Treatments: TCAs ?1. Amitriptyline SSRIs ?2. Citalopram ?3. Sertraline AEDs ?4. TPM Neuroleptics ?5. Promethazine NSAIDs ?6. Ibuprofen Misc ?7. APAP Narcotics ?8. Tramadol ?9. Oxycodone Beta blockers ?10. Propranolol MABs ?11. Erenumab Triptans ?12. Iliana- dizzy and did not work well 13. Diana - made her drowsy New Health Issues: See HPI New Family [...] to Visit Medication Sig Dispense Refill ??? erenumab-aooe (Aimovig Autoinjector) 140 mg/mL Auto-Injector Inject 140 mg subcutaneously every28 days. 1 Pen 11 ??? rizatriptan (MAXALT) 10 mg Tablet Take 1 tablet by mouth as needed for Migraine (max 3/d). 9 tablet 11 ??? famotidine (Pepcid) 20 mg Tablet Take 20 mg by mouth 2 times daily. ??? sertraline (Zoloft) 50 mg Tablet Take 50 mg by mouth daily. ??? levothyroxine (Synthroid) 25 mcg Tablet Take 25 mcg by mouth daily. ??? SUMAtriptan (Imitrex) 100 mg Tablet One PO for migraine, max 200 mg per day 9 tablet 11 ??? topiramate (TOPAMAX) 25 mg Tablet 1 tab QD for a week and then 1 tablet BID. (Patient not taking: Reported on 06/26/2019) 60 tablet 0 ??? citalopram (CELEXA) 40 mg tablet Take 40 mg by mouth every morning. ??? promethazine (PHENERGAN) 12.[address] 12.5 mg rectally every 6 hours as needed. ??? ibuprofen (ADVIL;MOTRIN) 100 mg/5 mL suspension Take 400 mg by mouth every 6 hours as needed. Indications: Pain No current facility-administered medications on file prior to visit. No Known Allergies REVIEW OF SYSTEMS: See HPI Impression & plan: 1. Chronic migraine without aura, with intractable migraine, so stated, with status migrainosus She already has a 50% reduction in mean monthly migraine days on erenumab, so her prognosis if for continued improvement, & she will continue it monthly. No side effects. She does not have a good acute medication. Sumatriptan and rizatriptan failed for efficacy and sideeffects. I will prescribe naratriptan. We can consider Nerivio or a non-oral triptan or DHE NS. AIMOVIG [place] [facility] [place] [facility] Patient name: Sharmin Mayo Date of : 1995 Patient Reported: MIDAS Responses 08/18/2020 Days missed school/work 0 Days productivity at work/school reduced 25 Days did not do household work 15 Days productivity related to housework reduced 30 Days missed family, social or leisure activities 10 Days had headache 50 Pain scale 7 MIDAS Score 80 (MIDAS grade IV, severe disability) MIDAS Adjusted Score - Date you began using Aimovi- How many months have you administered Aimovig 140 m How many migraine/headache days per month did you have BEFORE starting Aimovi How many migraine/headache days per month have you had SINCE starting Aimovi Have you noticed that your headaches/migraines are not as severe since starting Aimovig: Yes, less severe, more manageable, shorter, with JONES free time and days Have you used less of your abortive medications (triptans, NSAIDs, etc) since starting Aimovig: Yes Are your abortive medications working better to abort migraines since starting Aimovig: ibuprofen or APAP and hydration, and these work better Do you think the Aimovig is helping: yes Side effects: no Is the medication wearing off ? no Is the medication preventing your MENSTRUAL Migraine? yes Follow-up: 5 mos I spent 40 minutes in this visit with 30 minutes devoted to TeleHealth patient counseling, in addition to prep time. Sharmin Mayo gave verbal consent over the phone for this TeleHealth visit. The patient understandsthat this visit will be billed to their insurance, similar to a clinic visit. Yoni Hudson MD documented in this encounter Plan of Treatment Upcoming Encounters Date Type Department Care Team (Late st Contact Info) Description 05/02/2024 2:00 PM EST Procedure visit Neurology at [facility] [address] [place] [address] Aaron Ruiz APRN [facility] [place] [address] 06/08/2024 10:30 AM EST TH Visit (TeleHealth) Neurology at [facility] [address] [place] [address] Kayy Espinosa APRN [facility] [place] [address] documented as of this encounter Visit Diagnoses Diagnosis Chronic migraine without aura, with intractable migraine, so stated, with status migrainosus documented in this encounter Care Teams Web Content Writer Relationship Specialty Start Date End Date Belen Bravo PA [address] [place] [address] [place] [address] PCP - General Internal Medicine 04/05/19 documented as of this encounter
--- OUTSIDE RECORDS SUMMARY | 2024-02-10 01:55 | XMS_ITS | Encounter Summary ---
Author Organization [facility] [place] [address] Care Team Providers Care Supervisor Wire Rope Fabrication Name Role Phone Sridevi Rodriguez MD Primary Care Provider [phone] Reason for Visit * Reason Onset Date Comments Medication Refill 11/28/2014 Encounter Details Date Type Department Care Team (Late st Contact Info) Description 11/28/2014 Refill [place] [address] Rhonda Diamond LPN Social History Tobacco Use [...] PM EST Procedure visit Neurology at [address] [address] Aaron Ruiz RESIDENT PROGRAMS ASSIST[employer] [facility] [address] 06/08/2024 10:30 AM EST TH Visit (TeleHealth) Neurology at [address] [phone] Kayy Espinosa APRN [facility] [address] documented as of this encounter Visit Diagnoses Not on filedocumented in this encounter Care Teams Supervisor Wire Rope Fabrication Relationship Specialty Start Date End Date Sridevi Rodriguez MD [address] [place] [address] PCP - General 06/27/13 04/04/19 documented as of this encounter
--- OUTSIDE RECORDS SUMMARY | 2024-02-10 01:55 | XMS_ITS | Encounter Summary ---
Author Organization [facility] [place] [address] Care Team Providers Care Hadoop Admin Name Role Phone Belen Bravo Primary Care Provider + Reason for Visit * Reason Onset Date Comments Appointment 01/20/2021 Encounter Details Date Type Department Care Team (Late st Contact Info) Description 01/20/2021 Telephone Neurology at [facility] [address] [place] [address] [facility] [place] [address] Appointment Social History Tobacco Use Types Packs/Day [...] * Telephone Encounter - Bianka Ramos - 01/20/2021 11:34 AM EDT Scheduling Instructions Provider: Yoni Hudson MD Visit Type: Botox (paste AMANDA Instructions or manually enter): Return for 1 month Botox Appt Note: 1st Botox-Needs ins [place] approval Additional Info Needed: documented in this encounter Plan of Treatment Upcoming Encounters Date Type Department Care Team (Late st Contact Info) Description 05/02/2024 2:00 PM EST Procedure visit Neurology at [address] [address] Aaron Ruiz, [facility] [place] [address] 06/08/2024 10:30 AM EST TH Visit (TeleHealth) Neurology at [address] [address] Kayy Espinosa, [facility] [place] [address] documented as of this encounter Visit Diagnoses Not on filedocumented in this encounter Care Teams Hadoop Admin Relationship Specialty Start Date End Date Belen Bravo PA [address] [place] [address] [place] [address] PCP - General Internal Medicine 04/05/19 documented as of this encounter
--- OUTSIDE RECORDS SUMMARY | 2024-02-10 01:55 | XMS_ITS | Encounter Summary ---
Author Organization [facility]ly [facility] [place] [address] Care Team Providers Care Commonwealth Attorney Name Role Phone Belen Bravo Primary Care Provider + Reason for Visit * High Dollar Medication (Routine) - Closed Specialty Diagnoses / Procedures Referred By Cadence minaya Referred To Contact Neurology Diagnoses Intractable chronic migraine without aura and with status migrainosus Procedures Onabotulinumtoxin A (BOTOX) Authorizations Request (IN CLINIC) TC ONABOTULINUMTOXINA, 1 UNIT, INJECTION PRO CHEMODENERVATION FACIAL/TRIGEM/CERV MUSC MIGRAINE BOTOX Kayy Espinosa MATERIALS MGMT TECH [facility] [address] [facility] [place] [address] Referral ID Status Reason Start Date Expiration Date V isits Requested Visits Authorized [id number] Closed Consult, Test & Treat 10/16/2021 11/18/2023 18 16 Encounter Details Date Type Department Care Team (Late st Contact Info) Description 08/20/2021 3:00 PM EDT Office Visit Neurology at [facility] [address] [place] [address] Coni Pham MD [facility] [place] [address] Chronic migraine without aura, with intractable migraine, [...] this encounter Patient Instructions * Patient Instructions* Coni Pham MD - 08/20/2021 10:03 AM EDT You had Botox with me today. You can resume your usual activities. You will follow up with your usually scheduled headache provider and have your next Botox appointment in 12 weeks. documented in this encounter Procedure Notes * Coni Pham MD - 08/20/2021 3:00 PM EDTAssociated Order(s): CHEMODENERVATION, MEDICAL Neurology Procedure note Date: 08/20/2021 Patient: Sharmin Mayo : 1995 Procedure: Botox injections (PREEMPT protocol) - q 12 weeks Indications: Chronic Migraine Patient Reported: MIDAS Responses 08/20/2021 Days missed school/work 15 Days productivity at work/school reduced 45 Days did not do household work 15 Days productivity related to housework reduced 45 Days missed family, social or leisure activities 15 Days had headache 45 Pain scale 4 MIDAS Score 135 (MIDAS grade IV, severe disability) MIDAS Adjusted Score 135 Prior MIDAS Date Procedure MIDAS 05/28/21 Botox #1 - 155 units - Melanie 115, 70/90 JONES days, 10/25 severity 08/20/2021 Botox #2 - 155 units - Odermann 135, 45/90 JONES days, 07/26 severity Risk and benefits were explained to the patient. The patient previously provided written informed consent for the nerve block(s) procedure.. May 2021 : No Anticoagulation: No Time out was preformed OnabotulinumtoxinA was reconstituted with 0.9% NaCl to create a dilution of 5 units per 0.1mL. Each injection site was sterilized with 70% isopropyl alcohol. Injections were administered with a 30 gauge, 1/2 needle. Injections administered as follows: Injection SItes Muscle Fixed Site / Fixed Dose Follow the Pain Units Left Follow the Pain Right Follow the Pain Property Developer 10 Units divided in 2 sites Procerus 5 Units in 1 site Frontalis 20 units divided in 4 sites Temporalis 40 units divided in 8 sites 10 units or <, @2 sites or < Occipitalis 30 units divided in 6 sites 10 units or <, @2 sites or < 5 units @ 1 site 5 units@ 1 site Cervical Paraspinals 20 units divided in 4 sites Trapezius 30 units divided in 6 sites 10 units or <, @2 sites or < 5 units @ 1 site 5 units @1 site SCM Rhomboids Maxillary (TMD) Other Subtotals 155 units 10 units @ 2 sites 10 units @ 2 sites Total Units used: 175 units Total Units wasted: 25 units Total injection sites = 31 + 4 = 35 The patient tolerated the procedure without any immediate complications. Coni Pham MD Headache Fellow, [facility] [phone] 08/20/2021 documented in this encounter Plan of Treatment Upcoming Encounters Date Type Department Care Team (Late st Contact Info) Description 05/02/2024 2:00 PM EST Procedure visit Neurology at [address] [address] [facility] [place] [address] 06/08/2024 10:30 AM EST TH Visit (TeleHealth) Neurology at [address] [address] [facility] [place] [address] documented as of this encounter Procedures Procedure Name Priority Date/Time Associated Diagnosis Comments CHEMODENERVATION, MEDICAL Routine 08/20/2021 3:00 PM EDT documented in this encounter Results * Chemodenervation, medical (08/20/2021 3:00 PM EDT) Narrative Coni Pham MD - 08/20/2021 3:00 PM EDT Coni Pham MD ? 08/20/2021 ??3:10 PM Neurology Procedure note Date: 08/20/2021 Patient: Sharmin Mayo : ??1995 Procedure: Botox injections (PREEMPT protocol) - q 12 weeks Indications: Chronic Migraine Patient Reported: MIDAS Responses 08/20/2021 Days missed school/work 15 Days productivity at work/school reduced 45 Days did not do household work 15 Days productivity related to housework reduced 45 Days missed family, social or leisure activities 15 Days had headache 45 Pain scale ??4 MIDAS Score 135 (MIDAS grade IV, severe disability) MIDAS Adjusted Score 135 Prior MIDAS Date Procedure MIDAS 05/28/21 Botox #1 - 155 units - Melanie ??115, 70/90 JONES days, 10/25 severity 08/20/2021 Botox #2 - 155 units - Odermann 135, 45/90 JONES days, 07/26 severity Risk and benefits were explained to the patient. The patient previously provided written informed consent for the nerve block(s) procedure.. ?? May 2021 : No Anticoagulation: No Time out was preformed OnabotulinumtoxinA was reconstituted with 0.9% NaCl to create a dilution of 5 units per 0.1mL. Each injection site was sterilized with 70% isopropyl alcohol. Injections were administered with a 30 gauge, 1/2 needle. Injections administered as follows: Injection SItes Muscle Fixed Site / Fixed Dose Follow the Pain Units Left Follow the Pain Right Follow the Pain Property Developer 10 Units divided in 2 sites ? Procerus 5 Units in 1 site ? Frontalis 20 units divided in 4 sites ? Temporalis 40 units divided in 8 sites 10 units or <, @2 sites or < ?? Occipitalis 30 units divided in 6 sites 10 units or <, @2 sites or < 5 units @ 1 site 5 units @ 1 site Cervical Paraspinals 20 units divided in 4 sites ? Trapezius 30 units divided in 6 sites 10 units or <, @2 sites or < 5 units @ 1 site 5 units @ 1 site SCM ? Rhomboids ? Maxillary (TMD) ? Other ? Subtotals 155 units ??10 units @ 2 sites 10 units @ 2 sites ? Total Units used: 175 units Total Units wasted: 25 units Total injection sites = 31 + 4 = 35 The patient tolerated the procedure without any immediate complications. Coni Pham MD Headache Fellow, [facility] [phone] 08/20/2021 Coni Garcia MD PROCEDURE/MINOR SURG ICAL ORDERABLES documented in this encounter Visit Diagnoses Diagnosis Chronic migraine without aura, with intractable migraine, so stated, with status migrainosus documented in this encounter Administered Medications Inactive Administered Medications - up to 3 most recent administrations Medication Order MAR Action Action Date Dose Rate Site botulinum toxin type A 200 unit injection 200 Units, Intramuscular, ONCE, On Christine 08/20/21 at 1515, 1 dose Given 08/20/2021 3:08 PM EDT 175 Units 20-Other (document in comment section) documented in this encounter Care Teams Commonwealth Attorney Relationship Specialty Start Date End Date Belen Bravo PA [address] [place] [address] [place] [address] PCP - General Internal Medicine 04/05/19 documented as of this encounter
--- OUTSIDE RECORDS SUMMARY | 2024-02-10 01:55 | XMS_ITS | Encounter Summary ---
Author Organization [facility] [place] [address] Care Team Providers Care Metal Spinner Name Role Phone Belen Bravo Primary Care Provider + Reason for Visit * Reason Onset Date Comments Appointment 06/02/2020 Encounter Details Date Type Department Care Team (Late st Contact Info) Description 06/02/2020 Telephone Neurology at [address] [phone] Yoin Hudson MD [facility] [place] [address] Appointment Social History Tobacco Use Types Packs/Day [...] * Telephone Encounter - Bianka Ramos - 06/02/2020 2:36 PM EST Duplicate message documented in this encounter Plan of Treatment Upcoming Encounters Date Type Department Care Team (Late st Contact Info) Description 05/02/2024 2:00 PM EST Procedure visit Neurology at [address] [phone] Aaron Ruiz, [facility] [place] [address] 06/08/2024 10:30 AM EST TH Visit (TeleHealth) Neurology at [address] [address] Kayy Espinosa [facility] [place] [address] documented as of this encounter Visit Diagnoses Not on filedocumented in this encounter Care Teams Metal Spinner Relationship Specialty Start Date End Date Belen Bravo PA [address] [place] [address] [place] [address] PCP - General Internal Medicine 04/05/19 documented as of this encounter
--- OUTSIDE RECORDS SUMMARY | 2024-02-10 01:55 | XMS_ITS | Encounter Summary ---
Author Organization [facility]ly [facility] [place] [address] Care Team Providers Care Crossword Puzzle Maker Name Role Phone Belen Bravo Primary Care Provider + Reason for Visit * Reason Comments Medication Refill Encounter Details Date Type Department Care Team (Late st Contact Info) Description 03/03/2022 Refill Neurology at [address] [address] Yoni uHdson MD [facility] [place] [address] Social History Tobacco Use Types Packs/Day Years [...] PM EST Procedure visit Neurology at [address] [address] Aaron Ruiz APRN [facility] [place] [address] 06/08/2024 10:30 AM EST TH Visit (TeleHealth) Neurology at [address] [place] [address] Kayy Espinosa APRN [facility] [place] [address] documented as of this encounter Visit Diagnoses Not on filedocumented in this encounter Care Teams Crossword Puzzle Maker Relationship Specialty Start Date End Date Belen Bravo PA [address] [place] [address] [place] [address] PCP - General Internal Medicine 04/05/19 documented as of this encounter
--- OUTSIDE RECORDS SUMMARY | 2024-02-10 01:55 | XMS_ITS | Encounter Summary ---
Author Organization [facility] [place] [address] Care Team Providers Care Leaf Binner Name Role Phone Belen Bravo Primary Care Provider + Reason for Visit * Reason Onset Date Comments Appointment 11/12/2021 Encounter Details Date Type Department Care Team (Late st Contact Info) Description 11/12/2021 Telephone Neurology at [facility] [address] [place] [address] Kayy Espinosa APRN [facility] [place] [address] Appointment Social History Tobacco Use Types Packs/Day [...] * Telephone Encounter - Bianka Ramos - 11/13/2021 12:13 PM EDT Scheduling Instructions Provider: Kayy Espinosa APRN or Any ROBERT Provider Visit Type: Botox (paste AMANDA Instructions or manually enter): Next Available Appt Note: 12 week Botox Additional Info Needed: Please reschedule from 11.12.2021 appointment * Telephone Encounter - Blayne Amalia Rodriguez - 11/12/2021 8:06 AM EDT Copied from CRM #[id number]. Topic: Specialty Dept CRMs - Appointment Needed >> Nov 11, 2021 4:47 PM Desi Piedra wrote: Appt Needed Specialist Kayy Espinosa APRN Relationship (if other than patient-full name): Sharmin Mayo Appt. Type Needed: Other Reason for Visit: Patient called today to cancel botox appt. Please return call to cell phone to help reschedule. documented in this encounter Plan of Treatment Upcoming Encounters Date Type Department Care Team (Late st Contact Info) Description 05/02/2024 2:00 PM EST Procedure visit Neurology at [address] [address] Aaron Ruiz CNS [facility] [place] [address] 06/08/2024 10:30 AM EST TH Visit (TeleHealth) Neurology at [address] [address] Kayy Espinosa APRN [facility] [place] [address] documented as of this encounter Visit Diagnoses Not on filedocumented in this encounter Care Teams Leaf Binner Relationship Specialty Start Date End Date Belen Bravo PA [address] [place] [address] [place] [address] PCP - General Internal Medicine 04/05/19 documented as of this encounter
--- OUTSIDE RECORDS SUMMARY | 2024-02-10 01:55 | XMS_ITS | Encounter Summary ---
Author Organization [facility] [place] [address] Care Team Providers Care Nitrate Operator Name Role Phone Belen Bravo Primary Care Provider + Reason for Visit * Consultation (Routine) - Specialty Diagnoses / Procedures Referred By Contheaven t Referred To Contact Neurology Diagnoses Migraine with aura, not intractable, without status migrainosus Belen Bravo PA [address] [place] [address] [place] [address] [facility] [address] [place] [phone] Referral ID Status Reason Start Date Expiration Date V isits Requested Visits Authorized [id number] Consult, Test & Treat Connection [facility] PCP Updated and/or Approved 04/05/2019 04/04/2020 1 1 Encounter Details Date Type Department Care Team (Late st Contact Info) Description 06/26/2019 4:00 PM EDT Office Visit Neurology at [address] [address] Yoni Hudson MD [facility] [place] [address] Chronic migraine without aura, with intractable migraine, so stated, with status migrainosus; Intractable migraine with aura with status migrainosus; Medication overuse headache Social History Tobacco Use Types Packs/Day Years [...] Sign Reading Time Taken Comments Blood Pressure 124/64 06/26/2019 3:24 PM EDT Pulse 62 06/26/2019 3:24 PM EDT Temperature - - Respiratory Rate - - Oxygen Saturation - - Inhaled Oxygen Concentration - - Weight 53.5 kg (118 lb) 06/26/2019 3:24 PM EDT R eported Height 162.6 cm (5' 4) 06/26/2019 3:24 PM EDT R eported Body Mass Index 20.25 06/26/2019 3:24 PM EDT documented in this encounter Patient Instructions * Patient Instructions* Yoni Hudson MD - 06/26/2019 4:00 PM EDT 06-26-19 Please go to [employer], click on shop at the upper left, click on cefaly devices, click on Cefaly DUAL and 'Buy. Please buy the DUAL device and a kit of 3 electrodes. You will need to fax or scan them my prescription. For prevention: please wear for 20 minutes daily in the Prevent setting. One push of the button turns it on. For as-needed treatment, please put it in the Acute setting and wear for 60 minutes. Two pushes of the button turns it on. For prevention: one push of the button turns it on. Another push later stops the ramping up of the stimulus. A third push of the button later turns it off. In the Prevent setting, it will turn off automatically in 20 minutes. In the Acute setting, it will turn off automatically in one hour. 3 electrode replacement generally is necessary every 3 months. It costs about $25 for each kit of 3electrodes. If you cannot tolerate the device, you can return it up to 60 days for your money back, however it generally takes 3 months to evaluate effectiveness for prevention. I will schedule for about 5 mos. I will renew your sumatriptan. Yoni Hudson MD documented in this encounter Progress Notes * Yoni Hudson MD - 06/26/2019 4:00 PM EDT Neurology Headache New Patient Consultation?06-26-19 [facility] Referring Provider: HAIDER Nuñez This is a 24 year old??R-handed woman referred by HAIDER Nuñez, to whom I will send the consult upon completion. CC:?? headache HPI: Pt with ROSIE and a hx of chronic pain (head, back, hips, knees, ankles) and neg rheum work up (neg or nl NANI, HLAB27, inflammatory markers). MRI brain and spine essentially nl in 2010. She [address] Dr[address] Madyson Lazaro in Pediatric Neurology here for her HAs twice, once in 2010, once in 2013. During that time she had continuous Chronic Migraine. The patient cancelled 6 follow up appointments and never returned. She was also not adherent with instructions by Dr. Lazaro and her nurse in terms of meds. +Hx of motion sickness, +FHx of migraines. She still has continuous JONES. She has 1/3 of days mild, 1/3 moderate, 1/3 severe. The HAs are retro-ocular and bilateral and global. They are throbbing, worse with activity, with photophonophobia, N with about 1/4 of the HAs. Every so often she gest light headed or dizzy from them. She does get typical visual scintillating scomata for an hour 1-2/week. On the mild days, takes ibuprofen 600 mg or APAP 1g On the moderate days, takes same On the severe days, takes same or sumatriptan. Iliana helps a bit, no pain freedom. She was placed on erenumab 70 for 3-4 mos before she got pg, and it was working, no AEs. She is breast feeding, baby is 4 mos old, and mother wants to breast feed another 6 mos. Insurance is [facility]. Patient Reported: MIDAS Responses 06/26/2019 Days missed school/work 2 Days productivity at work/school reduced 40 Days did not do household work 40 Days productivity related to housework reduced 25 Days missed family, social or leisure activities 15 Days had headache 90 Pain scale 6 MIDAS Score 122 (MIDAS grade IV, severe disability) MIDAS Adjusted Score - Currently, her [place] [employer] is empty. Prior Treatments: TCAs 1. Amitriptyline SSRIs 2. Citalopram 3. Sertraline AEDs 4. TPM Neuroleptics 5. Promethazine NSAIDs 6. Ibuprofen Misc 7. APAP Narcotics 8. Tramadol 9. Oxycodone Beta blockers 10. Propranolol MABs 11. Erenumab 70 on it for 3-4 mos and it worked! Triptans 12. Iliana Outpatient Medications Marked as Taking for the 06/26/19 encounter (Office Visit) with Yoni Hudson MD Medication Sig Dispense Refill ??? famotidine (Pepcid) 20 mg Tablet Take 20 mg by mouth 2 times daily. ??? sertraline (Zoloft) 50 mg Tablet Take 50 mg by mouth daily. ??? levothyroxine (Synthroid) 25 mcg Tablet Take 25 mcg by mouth daily. ??? ibuprofen (ADVIL;MOTRIN) 100 mg/5 mL suspension Take 400 mg by mouth every 6 hours as needed. Indications: Pain Mirena IUD No Known Allergies Previous testing: See HPI Family History: Migraine or other headaches in the family:?? dad Past Medical History: Diagnosis Date ??? Chronic pain head, back, hips, knees, ankle ??? ROSIE (generalized anxiety disorder) Past Surgical History: Procedure Laterality Date ??? APPENDECTOMY ??? TONSILLECTOMY AND ADENOIDECTOMY Social History Socioeconomic History ??? Marital status: Spouse name: Not on file ??? Number of children: Not on file ??? Years of education: Not on file ??? Highest education level: Not on file Occupational History ??? Not on file Social Needs ??? Financial resource strain: Not on file ??? Food insecurity Worry: Not on file Inability: Not on file ??? Transportation needs Medical: Not on file Non-medical: Not on file Tobacco Use ??? Smoking status: Never Smoker ??? Smokeless tobacco: Never Used ??? Tobacco comment: no smokers Substance and Sexual Activity ??? Alcohol use: Yes Comment: Occ ??? Drug use: Never ??? Sexual activity: Not on file Lifestyle ??? Physical activity Days per week: Not on file Minutes per session: Not on file ??? Stress: Not on file Relationships ??? Social connections Talks on phone: Not on file Gets together: Not on file Attends scientology service: Not on file Active member of club or organization: Not on file Attends meetings of clubs or organizations: Not on file Relationship status: Not on file ??? Intimate partner violence Fear of current or ex partner: Not on file Emotionally abused: Not on file Physically abused: Not on file Forced sexual activity: Not on file Other Topics Concern ??? Not on file Social History Narrative ??? 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 ROS: HEENT: headache CV: negative GI: negative : negative Endocrine: negative Musculoskeletal: back, hip, leg pain Physical Exam VS BP 124/64 (BP Location (NBP): Right arm, Patient Position: Sitting, BP Cuff Sizes: Small Adult (20-26 cm)) Pulse 62 Ht 162.6 cm (5' 4) Comment: Reported Wt 53.5 kg (118 lb) Comment: Reported BMI 20.25 kg/m?? General: nl Pain Behaviors: none Skin: nl HEENT: Nl, no spasm, full ROM Abdomen/genitalia: ND Vascular: Nl, no bruits Musculoskeletal: Nl Neurological: Mental Status: nl, Affect is appropriate. Speech is clear, not dyarthric. Attention span and concentration are nl. Cranial Nerves: II: Funduscopic: nl discs & venous pulsations Visual jackson: full to confrontation 3,4,6: Pupils: 3 mm = round reactive to light and near reflex V: nl primary sensory modalities V1-3, corneals intact bilaterally VII:symmetric VIII: nl Air conduction > Bone Conduction Ro midline 9, 10: Gag nl XI: SCMs 5/5; Shoulder Shru/5 XIII:Tongue protrusion: midline Motor: nl bulk, tone, strength 5/5 Reflexes 2+ Pathologic reflexes: absent Drift absent Tremor: absent Sensation: Primary sensory modalities nl in the upper extremities. Cerebellar exam: FTN nl TEJ nl . Gait examination: nl Tanderm nl Romberg negative Impression: ?? 1. Chronic migraine without aura, with intractable migraine, so stated, with status migrainosus 2. Intractable migraine with aura with status migrainosus 3. Medication overuse headache When she is done breast feeding, we'll back to erenumab but at 140 mg. She is a candidate for a different triptan, a gepant, or lasmiditan or Nerivio. These all wait until she is not breast feeding (except Nerivio, but we will try Cefaly first). We will use Cefaly in the meantime preventively and acutely. I will prescribe sumatriptan for use now since the [place] [employer] has cleared it for use in . As far as her medication overuse is concerned, I would use erenumab to wean her, so this may have to wait until she is done breast feeding. Plan/Instructions given to patient: Please go to [email or web address], click on shop at the upper left, click on cefaly devices, click on Cefaly DUAL and 'Buy. Please buy the DUAL device and a kit of 3 electrodes. You will need to fax or scan them my prescription. For prevention: please wear for 20 minutes daily in the Prevent setting. One push of the button turns it on. For as-needed treatment, please put it in the Acute setting and wear for 60 minutes. Two pushes of the button turns it on. For prevention: one push of the button turns it on. Another push later stops the ramping up of the stimulus. A third push of the button later turns it off. In the Prevent setting, it will turn off automatically in 20 minutes. In the Acute setting, it will turn off automatically in one hour. 3 electrode replacement generally is necessary every 3 months. It costs about $25 for each kit of 3electrodes. If you cannot tolerate the device, you can return it up to 60 days for your money back, however it generally takes 3 months to evaluate effectiveness for prevention. I will schedule for about 5 mos. I will renew your sumatriptan. I spent?? 80 minutes in this visit with 60 minutes devoted to face-to face patient counseling. Thank you, Ms Bravo, for this consult. Yoni Hudson MD documented in this encounter Plan of Treatment Upcoming Encounters Date Type Department Care Team (Late st Contact Info) Description 05/02/2024 2:00 PM EST Procedure visit Neurology at [address] [address] Aaron Ruiz, [facility] [address] 06/08/2024 10:30 AM EST TH Visit (TeleHealth) Neurology at [facility] [address] [place] [address] Kayy Espinosa [facility] [place] [address] documented as of this encounter Visit Diagnoses Diagnosis Chronic migraine without aura, with intractable migraine, so stated, with status migrainosus Intractable migraine with aura with status migrainosus Migraine with aura, with intractable migraine, so stated, with status migrainosus Medication overuse headache Drug induced headache, not elsewhere classified documented in this encounter Care Teams Nitrate Operator Relationship Specialty Start Date End Date Belen Bravo PA [address] [place] [address] [place] [address] PCP - General Internal Medicine 04/05/19 documented as of this encounter
--- OUTSIDE RECORDS SUMMARY | 2024-02-10 01:55 | XMS_ITS | Encounter Summary ---
Author Organization [facility] [place] [address] Care Team Providers Care Solar Sales Advisor Name Role Phone Belen Bravo Primary Care Provider + Encounter Details Date Type Department Care Team (Late st Contact Info) Description 05/26/2020 3:30 PM EST Office Visit Neurology at [address] [address] Yoni Hudson MD [facility] [place] [address] Chronic migraine without aura, with intractable migraine, [...] Sign Reading Time Taken Comments Blood Pressure 117/66 05/26/2020 3:11 PM EST Pulse 66 05/26/2020 3:11 PM EST Temperature 36.6 ??C (97.9 ??F) 05/26/2020 3:11 PM ES T Respiratory Rate - - Oxygen Saturation - - Inhaled Oxygen Concentration - - Weight 54.4 kg (120 lb) 05/26/2020 3:11 PM EST Height 162.6 cm (5' 4) 05/26/2020 3:11 PM EST r eported Body Mass Index 20.6 05/26/2020 3:11 PM EST documented in this encounter Progress Notes * Yoni Hudson MD - 05/26/2020 3:30 PM EST Neurology Headache Clinic Follow-up Visit 05-26-20 Pt no showed 12-03-19. ?? Last Appointment: 06-26-19 ?? Pain today: 4 ? Headache Hx: ?? RN seen one time 06-26-19 with continuous chronic migraine wwo aura who was breast feeding. She had responded to erenumab 70 mg prescribed by another provider before she got . She noticed improvement at that dose, decreased severity, decreased frequency, and decreased durtaion. I prescribed Cefaly. She did not fill that. As noted, she no showed for her follow up appointment, so I have only seen her once. She is currently having continuous JONES. She is done breast feeding. She is on the Mirena for control. Patient Reported: MIDAS Responses 05/26/2020 Days missed school/work 3 Days productivity at work/school reduced 20 Days did not do household work 20 Days productivity related to housework reduced 10 Days missed family, social or leisure activities 3 Days had headache 90 Pain scale 6 MIDAS Score 56 (MIDAS grade IV, severe disability) MIDAS Adjusted Score - ?? MONOCLONAL ANTIBODY Note [facility] Neurology Headache [facility] Patient name: Sharmin Mayo Date of : 1995 Patient Dx: [x] G43.7 chronic migraine without aura [] G43.9 episodic migraine without aura [] G43.0 migraine with aura Medication being requested: [x] Aimovig [] AJOVY [] Emgality Preferred Pharmacy: [facility], [facility] Sharmin Mayo has had a lack of success with each of the three most effective anti-migraine prevention categories: antidepressants, anti-epilepsy drugs, and antihypertensives. The FDA has approved the use of Aimovig, Ajovy, Emgality for the prevention of Chronic and EpisodicMigraine. Does the patient have a latex allergy? no No Known Allergies Patient has tried and failed: Medications Tried ([x] checked have been tried in the past) Anti-seizure: [] Acetazolamide (Diamox) [] Carbamazepine (Tegretol) [] Clonazepam [] Gabapentin (Neurontin) [] Lamotragine (Lamictal) [] Levetiracetam (Keppra) [] Oxcarbazepine (Trileptal) [] Phenobarbital [] Phenytoin (Dilantin) [] Pregabalin (Lyrica) [] Primidone [] Sodium Valproate (Depakote) [x] Topiramate (Topamax) [] Zonisamide (Zonegran) Anti-Depressants: SSRI: [x] Citalopram (Celexa) [] Escitalopram (Lexapro) [] Fluvoxamine (Luvox) [] Fluoxetine (Prozac) [] Paroxetine (Paxil) [x] Sertraline (Zoloft) TCA: [x] Amitriptyline (Elavil) [] Amoxapine [] Clomipramine (Anafranil) [] Desipramine (Norpramin) [] Doxepin (Sinequan) [] Imipramine (Tofranil) [] Maprotiline (Ludiomil) [] Nortriptiline (Pamelor) [] Protriptyline (Vivactil) [] Trimipramine (Surmontil) Anti-Hypertensives: Beta Blockers [] Acebutolol (Sectral) [] Atenolol (Tenormin) [] Bisoprolol (Zebeta) [] Metoprolol (Lopressor) [] Nadolol (Cogard) [] Nebivolol (Bystolic) [x] Propranolol (Inderal) [] Timolol Monoclonal Antibodies: [x] Aimovig [] Ajovy [] Emgality Triptans oral: [] Almotriptan (Axert) [] Eletriptan (Relpax) [] Frovatriptan (Frova) [] Naratriptan (Amerge) [] Rizatriptan (Maxalt) [x] Sumatriptan (Imitrex) [] Sumatriptan/Naproxen (Treximet) [] Zolmitriptan (Zomig) For CHRONIC Migraine Patients: Does the patient have medication overuse headache? [] YES [x] NO *If YES, the treatment plan will include tapering off the offending medications Does the patient have >= 15 JONES days per month, of which at least 8 must be migraine days? [x] YES [] NO How many migraine days per month is patient experiencing? 31 How long do the migraines last? 08/11 How long has the patient had this diagnosis? 11 years Has patient tried and failed Botox? [] YES [x] NO Will patient be receiving both Botox and Aimovig simultaneously? [] YES [x] NO Will patient be receiving both Aimovig, AJOVY, & Emgality and another monoclonal antibody? [] YES [x] NO Patient Reported: MIDAS Responses 05/26/2020 Days missed school/work 3 Days productivity at work/school reduced 20 Days did not do household work 20 Days productivity related to housework reduced 10 Days missed family, social or leisure activities 3 Days had headache 90 Pain scale 6 MIDAS Score 56 (MIDAS grade IV, severe disability) MIDAS Adjusted Score - Prior Treatments: TCAs ?1. Amitriptyline SSRIs ?2. Citalopram ?3. Sertraline AEDs ?4. TPM Neuroleptics ?5. Promethazine NSAIDs ?6. Ibuprofen Misc ?7. APAP Narcotics ?8. Tramadol ?9. Oxycodone Beta blockers ?10. Propranolol MABs ?11. Erenumab 70 on it for 3-4 mos and it worked! Triptans ?12. Iliana ? Past Medical History: Diagnosis Date ??? Chronic migraine without aura, with intractable migraine, so stated, with status migrainosus ? Chronic pain ? head, back, hips, knees, ankle ??? ROSIE (generalized anxiety disorder) ? Migraine with aura, intractable, with status migrainosus ? Past Surgical History: Procedure Laterality Date ??? APPENDECTOMY ? TONSILLECTOMY AND ADENOIDECTOMY ? No Known Allergies New Health Issues: See HPI New Family History: no Studies to Review: no Outpatient Medications Marked as Taking for the 05/26/20 encounter (Office Visit) with Yoni Hudson MD [...] mg per day 9 tablet 11 ??? ibuprofen (ADVIL;MOTRIN) 100 mg/5 mL suspension Take 400 mg by mouth every 6 hours as needed. Indications: Pain REVIEW OF SYSTEMS: See HPI Physical Examination: VS BP 117/66 Pulse 66 Temp 36.6 ??C (97.9 ??F) Ht 162.6 cm (5' 4) Comment: reported Wt 54.4 kg (120 lb) BMI 20.60 kg/m?? General: Normal skin, musculoskeletal Neurological: Normal mentation, coordination, gait Impression: 1. Chronic migraine without aura, with intractable migraine, so stated, with status migrainosus This patient meets the FDA criteria for Chronic Migraine, with headache at least 15 days per month,at least 4 hours per day (hers are continuous). She has unsuccessfully tried at least 12 medications, and has had lack of success with each of the big three anti-migraine prevention categories, antidepressants, anti-epilepsy drugs, and antihypertensives. She previously had partial benefit from erenumab 70 mg which she tolerated. I will prescribe erenumab 140 mg subcu Q28d for her prevention. Sumatriptan has failed for her; I will prescribe rizatriptan. Follow-up: 3 and 6 mos I spent 40 minutes in this visit, with at least 30 devoted to patient counseling. Yoni Hudson MD documented in this encounter Plan of Treatment Upcoming Encounters Date Type Department Care Team (Late st Contact Info) Description 05/02/2024 2:00 PM EST Procedure visit Neurology at [address] [address] Aaron Ruiz, [facility] DR NEUROLOGY [place] [address] 06/08/2024 10:30 AM EST TH Visit (TeleHealth) Neurology at [address] [phone] [facility] [place] [address] documented as of this encounter Visit Diagnoses Diagnosis Chronic migraine without aura, with intractable migraine, so stated, with status migrainosus documented in this encounter Care Teams Solar Sales Advisor Relationship Specialty Start Date End Date Belen Bravo PA [address] [place] [address] [place] [address] PCP - General Internal Medicine 04/05/19 documented as of this encounter
--- OUTSIDE RECORDS SUMMARY | 2024-02-10 01:55 | XMS_ITS | Encounter Summary ---
[place] [address] Care Team Providers Care Associate Director Data & Analytics Name Role Phone Belen Bravo Primary Care Provider + Reason for Visit * Reason Onset Date Comments Appointment 01/01/2022 Encounter Details Date Type Department Care Team (Late st Contact Info) Description 01/01/2022 Telephone Neurology at [facility] [address] [place] [phone] [place] [address] Appointment Social History Tobacco Use Types Packs/Day [...] encounter Miscellaneous Notes * Telephone Encounter - Bennett Verma - 01/01/2022 3:04 PM EDT Sharmni Mayo, Pt, stated she is returning a call to schedule, scheduled 03/10. * Telephone Encounter - Bianka Ramos - 01/01/2022 12:51 PM EDT Scheduling Instructions Provider: Any JONES Provider Visit Type: Botox (paste AMANDA Instructions or manually enter): Next Available-Return in about 12 weeks (around 03/03/2022) for In Person for Botox Appt Note: 12 week Botox Additional Info Needed: Please schedule from canceled 03.03.2022. Edit provider documented in this encounter Plan of Treatment Upcoming Encounters Date Type Department Care Team (Late st Contact Info) Description 05/02/2024 2:00 PM EST Procedure visit Neurology at [address] [address] Aaron Ruiz [facility] [place] [address] 06/08/2024 10:30 AM EST TH Visit (TeleHealth) Neurology at [address] [address] [facility] [place] [address] documented as of this encounter Visit Diagnoses Not on filedocumented in this encounter Care Teams Associate Director Data & Analytics Relationship Specialty Start Date End Date Belen Bravo PA [address] [place] [address] [place] [address] PCP - General Internal Medicine 04/05/19 documented as of this encounter
--- OUTSIDE RECORDS SUMMARY | 2024-02-10 01:55 | XMS_ITS | Encounter Summary ---
[place] [address] Care Team Providers Care Restaurant Line Cook Name Role Phone Allen Rodriguez MD Primary Care Provider [phone] Encounter Details Date Type Department Care Team (Latest Contact Info) Description 11/05/2010 5:33 PM EDT - 11/05/2010 11:59 PM EDT Hospital [place] [address] Leg numbness; Chronic headaches; Leg weakness Social History Tobacco Use Types Packs/Day Years [...] 08/05/2010 01/14/2021 documented as of this encounter Plan of Treatment Upcoming Encounters Date Type Department Care Team ( st Contact Info) Description 05/02/2024 2:00 PM EST Procedure visit Neurology at [facility] [address] [place] [address] Aaron Ruiz APRN [facility] [place] [address] 06/08/2024 10:30 AM EST TH Visit (TeleHealth) Neurology at [facility] [address] [place] [address] Kayy Espinosa APRN [facility] [place] [address] documented as of this encounter Procedures Procedure Name Priority Date/Time Associated Diagnosis Comments MRI LUMBAR SPINE WITHOUT CONTRAST Routine 11/05/2010 6:44 PM EDT Disturbance of skin sensation Headache Muscle weakness (generalized) documented in this encounter Results * MRI LUMBAR SPINE WITHOUT CONTRAST (11/05/2010 6:44 PM EDT) Anatomical Region Laterality Modality L-spine Magnetic Resonan ce 11/05/2010 6:44 PM EDT [...] is normal. The conus terminates at the [id number]. No aggressive marrow lesions are seen. The [...] limbs documented in this encounter Care Teams Restaurant Line Cook Relationship Specialty Start Date End Date Allen Rodriguez MD [address] [place] [address] PCP - General 03/10/10 06/26/13 documented as of this encounter
--- OUTSIDE RECORDS SUMMARY | 2024-02-10 01:55 | XMS_ITS | Encounter Summary ---
Author Organization [facility] [place] [address] Care Team Providers Care Customer Solutions Architect Name Role Phone Belen Bravo Primary Care Provider + Reason for Visit * Reason Onset Date Comments TeleHealth 01/14/2021 Encounter Details Date Type Department Care Team (Late st Contact Info) Description 01/14/2021 Telephone Neurology at [facility] [address] [place] [address] Yoni Hudson [place] [address] TeleHealth Social History Tobacco Use Types Packs/Day Years [...] Telephone Encounter - Janny Sandoval RN - 01/14/2021 4:09 PM EDT Spoke to this patient??by phone to review??their??medications and allergies prior to their??upcoming tele-appointment with the Neurology??provider. ??Medications and allergies reviewed, verified and updated as needed. ?? documented in this encounter Plan of Treatment Upcoming Encounters Date Type Department Care Team (Late st Contact Info) Description 05/02/2024 2:00 PM EST Procedure visit Neurology at [address] [address] Aaron Ruiz [facility] [place] [address] 06/08/2024 10:30 AM EST TH Visit (TeleHealth) Neurology at [address] [place] [address] Kayy Espinosa [facility] [place] [address] documented as of this encounter Visit Diagnoses Not on filedocumented in this encounter Care Teams Customer Solutions Architect Relationship Specialty Start Date End Date Bleen Bravo PA [address] [place] [address] [place] [address] PCP - General Internal Medicine 04/05/19 documented as of this encounter
--- OUTSIDE RECORDS SUMMARY | 2024-02-10 01:56 | XMS_ITS | Encounter Summary ---
Author Organization [facility] [place] [address] Care Team Providers Care Psychiatric Nursing Aide Name Role Phone Belen Bravo Primary Care Provider + Encounter Details Date Type Department Care Team (Late st Contact Info) Description 04/15/2009 Orders [place] [address] [facility] [place] [address] Social History Tobacco Use Types Packs/Day Years Used Date Smoking Tobacco: Never Assessed Sex and Gender Information Value Date Recorded Sex Assigned at Not on file Gender Identity Not on file Sexual Orientation Not on file documented as of this encounter Plan of Treatment Upcoming Encounters Date Type Department Care Team (Late st Contact Info) Description 05/02/2024 2:00 PM EST Procedure visit Neurology at [address] [address] Aaron Ruiz [employer] [employer] [facility] [place] [address] 06/08/2024 10:30 AM EST TH Visit (TeleHealth) Neurology at [address] [phone] Kayy Espinosa APRN [facility] [place] [address] documented as of this encounter Procedures Procedure Name Priority Date/Time Associated Diagnosis Comments SURGICAL PATHOLOGY REPORT Routine 04/15/2009 12:39 PM EST documented in this encounter Results * Surgical Pathology Report (04/15/2009 12:39 PM EST) Surgical Pathology Report [id number] ? Location: [facility] The signing pathologist has (i) examined the relevant preparation(s) for the specimen(s) and (ii) rendered or confirmed the diagnosis(es). . ?Pathology Surgical Pathology Final Report Clinical Information Specimen Submitted: A - Right and left tonsils: Clinical History: Not provided Clinical Diagnosis: TA hyper Gross Description Labeled/Fixativ e: ? Right and left tonsils, fresh. Quantity/Size: ?Two, averaging 2.5 x 1.8 x 1.3 cm. Tissue Description: ?? Krishnan-pink, rubbery, focally hemorrhagic. ?Sectioning reveals smooth, glistening, krishnan-pink ?surfaces without lesions grossly. Sections/Proces sing: ??(R2) ??aje/PPS Microscopic Description Slides reviewed, microscopic description not recorded. Diagnosis Tonsils, Right and Left, Bilateral Tonsillectomy: ? Bilateral Follicular Lymphoid Hyperplasia. 04/19/09 SBT 04/19/09 Verified by: ? Tori Ryder MD ?Pathologist ?(Electronic Signature) The attending pathologist whose signature appears on this report has reviewed all diagnostic slides and has edited the gross and/or microscopic portion of the report in rendering the final pathologic diagnosis. [facility] 04/15/2009 12:3 9 PM EST Eloisa Baig MD PATHOLOGY/CYTOLOGY [facility] documented in this encounter Visit Diagnoses Not on filedocumented in this encounter Care Teams Psychiatric Nursing Aide Relationship Specialty Start Date End Date Belen Bravo PA [address] [place] [address] [place] [address] PCP - General Internal Medicine 04/05/19 documented as of this encounter
--- OUTSIDE RECORDS SUMMARY | 2024-02-10 01:56 | XMS_ITS | Encounter Summary ---
Author Organization [facility] [address] Care Team Providers Care Network Engineer Name Role Phone Allen Rodriguez MD Primary Care Provider [phone] Reason for Visit * Reason Onset Date Comments Extremity Weakness 09/08/2010 B leg weaknes s Encounter Details Date Type Department Care Team (Late st Contact Info) Description 09/08/2010 Telephone [place] [address] Avtar Guzmán MD [facility] [address] Extremity Weakness (B leg weakness) Social History Tobacco Use Types Packs/Day Years Used Date Smoking Tobacco: Never Alcohol Use Standard Drinks/Week Comments Not Asked 0 (1 standard drink = 0.6 oz pur e alcohol) Sex and Gender Information Value Date Recorded Sex Assigned at Not on file Gender Identity Not on file Sexual Orientation Not on file documented as of this encounter Miscellaneous Notes * Telephone Encounter - Cece Maguire RN - 09/08/2010 4:41 PM EDT Irena chawla nurse to home. Spoke with Shana. She describes that Sharmin was at softball practice this past wkd. She was really pushing it per mom and even her ice skating coach told mom that she was giving it 130% . While practicing Sharmin felt that her legs went numb and she lost her balance and fell down.After that she had increased pain. Today Sharmin had a PT appt. The PT thought that perhaps she has something going on with her back and they are now going to work on some strengthening exercises for her back and shoulders as well as her legs. Mom does report that Sharmin's anxiety has resolved since stopping the tramadol. She is now taking either ibuprofen or naproxen. She is also not having h/a any more. Mom has not heard back about the sleep study yet. She is wondering about that. THis nurse had called their local hospital and set up sleep study form and referral. Gave mom the phone number there and asked that she call them to see if they have received the info and if Sharmin has an appt yet. Sharmin can take either ibuprofen or naproxen but she may get more benefit from taking naproxen routinely BID. She must take it with food. Mom can observe how she is doing. Sharmin can also try melatonin for sleep issues. Use the smallest dose necessary. As for the tingling in her legs. That is more of a concern and difficult to peg on FMS. This may berelated to her pushing it during practice and it may be neurologic in nature. Per Sharmin, the tingling is worse with activity and she has had episodes of tingling in her legs in the past but not anything that caused her to lose her balance. She experiences the tingling, when it happens, in both legs. Continue to watch for continued episodes of tingling. If these continue to occur or if she has another episode of falling because of the tingling then she should be seen by MD. Pt has never had a work up of her back (no x-ray or MRI etc). Mom is comfortable with this plan. She also has a plan to have Sharmin's eyes checked b/c she was c/o eye pain. She's had this in the past and it was found to be r/t her stribismus. Mom will take her this week. Mom knows that she can call with any questions or concerns and she does not have any immediate or acute concerns about Sharmin at this time. * Telephone Encounter - Cece Maguire RN - 09/08/2010 3:55 PM EDT Mom had left msg on pedi rheum nurse triage line asking for a callback regarding her daughter Sharmin. Sharmin had an incident where her legs went numb and she collapsed on a school field this past wkd. Mom asking for callback. Pedi rheum nurse to work, Shana had already left 3:55. Called home. Spoke briefly with Dad but he asked that we call back when mom is home, in about 10 minutes. documented in this encounter Plan of Treatment Upcoming Encounters Date Type Department Care Team (Late st Contact Info) Description 05/02/2024 2:00 PM EST Procedure visit Neurology at [address] [address] Aaron Ruiz [facility] [place] [address] 06/08/2024 10:30 AM EST TH Visit (TeleHealth) Neurology at [address] [address] Kayy Espinosa [facility] [place] [address] documented as of this encounter Visit Diagnoses Not on filedocumented in this encounter Care Teams Network Engineer Relationship Specialty Start Date End Date Allen Rodriguez MD [address] [place] [address] PCP - General 03/10/10 06/26/13 documented as of this encounter
--- OUTSIDE RECORDS SUMMARY | 2024-02-10 01:56 | XMS_ITS | Encounter Summary ---
Author Organization [facility] Address [address] [place] [address] Care Team Providers Care Assistant Operator Name Role Phone Unknown, Provider Primary Care Provider [phone] Encounter Details Date Type Department Care Team (Late st Contact Info) Description 10/12/2016 Results Only [facility] [phone] Clifford Gauthier MD [address] [facility] [address] [place] [address] Social History Tobacco Use Types Packs/Day Years Used Date Smoking Tobacco: Never Assessed Sex and Gender Information Value Date Recorded Sex Assigned at Not on file Gender Identity Not on file Sexual Orientation Not on file documented as of this encounter Plan of Treatment Not on file documented as of this encounter Procedures Procedure Name Priority Date/Time Associated Diagnosis Comments SURGICAL PATHOLOGY Routine 10/12/2016 19 :50 EDT documented in this encounter Results * SURGICAL PATHOLOGY (10/12/2016 19:50 EDT) Pathology Report: SURGICAL PATHOLOGY REPORT Reports generated via electronic interface contain original data; however they are lacking the format of the original report. Caution should be taken when reading/interpret ing unformatted reports. Name: ? SHARMIN ABBOTT ? Accession #: ? [id number] ? : ? 1995 (Age: 21) ??F ? Collect Date: ? 10/12/2016 ? Location: ? [facility] ? Receive Date: ? 10/13/2016 ? Provider: ENRIKE GAUTHIER MD Copy to: ? Final Pathologic Diagnosis: A. ??DUODENUM, 2ND PORTION, BIOPSY: - Duodenal mucosa with no specific pathologic features. B. ??STOMACH, ANTRUM AND BODY, BIOPSY: - Gastric antral and body mucosa with no specific pathologic features. C. ??ESOPHAGUS, DISTAL, BIOPSY: - Squamocolumnar junctional mucosa with reflux esophagitis. - Negative for intestinal metaplasia; Negative for dysplasia. D. ??SMALL BOWEL, TERMINAL ILEUM, BIOPSY: - Small bowel mucosa with no specific pathologic features. E. ??COLON, ASCENDING, BIOPSY: - Colonic mucosa with no specific pathologic features. F. ??COLON, TRANSVERSE, BIOPSY: - Colonic mucosa with no specific pathologic features. G. ??COLON, DESCENDING, BIOPSY: - Colonic mucosa with no specific pathologic features. H. ??COLON, SIGMOID, BIOPSY: - Colonic mucosa with no specific pathologic features. I. ??RECTUM, BIOPSY: - Rectal mucosa with no specific pathologic features. Document reviewed and electronically signed by: ALEXANDRA BLAS MD Report ??Date: 10/14/2016 16:25 By the signature above, the attending physician certifies that he/she has personally conducted a gross and/or microscopic examination of the described specimens and rendered or confirmed the above diagnosis. Specimen(s) Received: A. ??2nd portion of duodenum B. ??Antrum and body C. ??Distal esophagus D. ??Terminal ileum E. ??Ascending colon F. ??Transverse colon G. ??Descending colon H. ??Sigmoid colon I. ??Rectum Clinical History: Diarrhea; clinical diagnosis code: ??R19.7, R19.8 Gross Description: A. ?Received in formalin labelled with proper patient identification (initials S, A) and 2nd portion of duodenum are three pink-krishnan tissues (0.1 x 0.1 x 0.1 cm to 0.5 x 0.2 x 0.1 cm). Entirely submitted in block A1. B. ?Received in formalin labelled with proper patient identification (initials S, A) and antrum and body are two pink-krishnan tissues (0.2 x 0.2 x 0.2 cm and 0.3 x 0.2 x 0.1 cm). Entirely submitted in block B1. C. ?Received in formalin labelled with proper patient identification (initials S, A) and distal esophagus are three light krishnan tissues (0.2 x 0.2 x 0.1 cm to 0.3 x 0.2 x 0.1 cm). Entirely submitted in block C1. D. ?Received in formalin labelled with proper patient identification (initials S, A) and terminal ileum is a single light krishnan tissue fragment (0.7 x 0.2 x 0.2 cm). Submitted intact in block D1. E. ?Received in formalin labelled with proper patient identification (initials S, A) and ascending colon are two pink-krishnan tissues (0.3 x 0.2 x 0.1 cm and 0.4 x 0.2 x 0.1 cm). Entirely submitted in block E1. F. ?Received in formalin labelled with proper patient identification (initials S, A) and transverse colon are two pink-krishnan tissues (0.2 x 0.2 x 0.1 cm and 0.3 x 0.2 x 0.1 cm). Entirely submitted in block F1. G. ? Received in formalin labelled with proper patient identification (initials S, A) and descending colon are two pink-krishnan tissues (0.3 x 0.2 x 0.1 cm and 0.5 x 0.1 x 0.1 cm). Entirely submitted in block G1. H. ?Received in formalin labelled with proper patient identification (initials S, A) and sigmoid colon are three pink-krishnan tissues (0.3 x 0.2 x 0.1 cm to 1.0 x 0.1 x 0.1 cm). Entirely submitted in block H1. I. ?Received in formalin labelled with proper patient identification (initials S, A) and rectum is a single pink-krishnan tissue fragment (0.6 x 0.2 x 0.1 cm). Submitted intact in block I1. HAIDER Ellison (ASCP) 10/14/2016 8:29 AM End of Report [facility] 10/12/2016 19:5 0 EDT 10/13/2016 19:50 EDT Clifford Gauthier MD PATHOLOGY ORDERABLES Performing Organization Address City/State/[facility] Co de Phone Number [facility] [address] [place] [address] documented in this encounter Visit Diagnoses Not on filedocumented in this encounter Care Teams Assistant Operator Relationship Specialty Start Date End Date Unknown, Provider, PCP - General 07/07/15 documented as of this encounter
--- OUTSIDE RECORDS SUMMARY | 2024-02-10 01:56 | XMS_ITS | Encounter Summary ---
Author Organization [facility] Address [address] [place] [address] Care Team Providers Care Concrete Foreman Name Role Phone Unknown, Provider Primary Care Provider Encounter Details Date Type Department Care Team (Latest Contact Info) Description 10/12/2016 9:50 EDT - 10/12/2016 23:59 EDT Hospital Encounter [address] [address] Unknown, Provider, Discharge Disposition: Home or Self Care Social History Tobacco Use Types Packs/Day Years Used Date Smoking Tobacco: Never Assessed Sex and Gender Information Value Date Recorded Sex Assigned at Not on file Gender Identity Not on file Sexual Orientation Not on file documented as of this encounter Discharge Disposition Disposition Code Departure Means Destination Home or Self Correction documented in this encounter Plan of Treatment Not on file documented as of this encounter Visit Diagnoses Not on filedocumented in this encounter Care Teams Concrete Foreman Relationship Specialty Start Date End Date Unknown, Provider, PCP - General 07/07/15 documented as of this encounter
--- OUTSIDE RECORDS SUMMARY | 2024-02-10 01:56 | XMS_ITS | Referral Summary ---
Author Organization [facility] Address [address] [place] [address] Care Team Providers Care Tankroom Worker Name Role Phone Unknown, Provider Primary Care Provider [phone] Social History Tobacco Use Types Packs/Day Years Used Date Smoking Tobacco: Never Assessed Sex and Gender Information Value Date Recorded Sex Assigned at Not on file Gender Identity Not on file Sexual Orientation Not on file Plan of Treatment Not on file Care Teams Tankroom Worker Relationship Specialty Start Date End Date Unknown, Provider, PCP - General 07/07/15
--- OUTSIDE RECORDS SUMMARY | 2024-02-10 01:56 | XMS_ITS | Encounter Summary ---
Author Organization [facility] Address [address] [place] [address] Care Team Providers Care Zipper Joiner Name Role Phone Unavailable Primary Care Provider Unavailabl e Encounter Details Date Type Department Care Team (Latest Contact Info) Description 07/06/2015 10:56 EDT - 07/06/2015 23:59 EDT Hospital Encounter [facility] [address] [place] [address] Unknown, Provider, Discharge Disposition: Home or Self Care Social History Tobacco Use Types Packs/Day Years Used Date Smoking Tobacco: Never Assessed Sex and Gender Information Value Date Recorded Sex Assigned at Not on file Gender Identity Not on file Sexual Orientation Not on file documented as of this encounter Discharge Disposition Disposition Code Departure Means Destination Home or Self [facility] documented in this encounter Plan of Treatment Not on file documented as of this encounter Visit Diagnoses Not on filedocumented in this encounter
--- OUTSIDE RECORDS SUMMARY | 2024-02-10 01:56 | XMS_ITS | Encounter Summary ---
Author Organization [facility] [place] [address] Care Team Providers Care Turning And Beading Machine Operator Name Role Phone Allen Rodriguez MD Primary Care Provider [phone] Reason for Visit * Reason Onset Date Comments Panic Attack 09/02/2010 Encounter Details Date Type Department Care Team ([facility] st Contact Info) Description 09/02/2010 Telephone [place] [address] Avtar Guzmán MD [facility] [place] [address] Panic Attack Social History Tobacco Use Types Packs/Day Years [...] Telephone Encounter - Cece Maguire RN - 09/02/2010 2:41 PM EDT This nurse to [facility], they do not have ability to do sleep studies at this time. This nurse to [facility]. Spoke with Eden. She will fax referral form to [phone]. Form received, filled out and sent with last office note to [phone], . * Telephone Encounter - Cece Maguire, RN - 09/02/2010 2:10 PM EDT Mom to [facility] rust nurse triage line yesterday. She is asking for a callback regarding Sharmin. Called mom at work number, , Sharmin is having symptoms of anxiety attacks. Her sx include trouble breathing, heart racing and legs that feels numb or tingly. She has noticed that these tend to occur a few hours after taking a tramadol. Mom has not witnessed these attacks. Pt is taking tramadol 50mg tabs, one tablet BID. She takes one in the morning and then again aroundnoon-14:00. Pt has stopped taking the amitriptyline due to migraine headaches. She had used the amitriptyline for sleep issues. She uses the tramadol for pain although she also has ibuprofen for pain. Sharmin has been diagnosed with fibromyalgia and has difficulty sleeping. She specifically has trouble falling to sleep at night. Tramadol can cause anxiety in some patients and if she feels that there is a correlation between the tramadol and her panic attacks then she can taper off the medication. She cannot just stop the medication. She'll have to take the tramadol once daily for 3-5 days before stopping it. This nurse and mom spoke longer about FMS. If Sharmin has FMS this will be something that she needs to live with her whole life. It can be overwhelming to anyone, least of all a young teenager, to be dealing with this kind of diagnosis. FMS can cause pain, fatigue and many other sx. Per mom, Sharmin is feeling overwhelmed. Sharmin can try to taper off the tramadol in regards to her anxiety attack sx to see if stopping themedication shows an end to the sx but she will also need to check in with her PCP about these attacks and get some help addressing the fact that she feels overwhelmed. We'd be doing her a disservice if we didn't set her up with a therapist or counselor who can help her adjust to her new diagnosis an d sx. Mom also asks about a sleep study. She has not heard from anyone yet. She'd like to have the study done at [facility]. This nurse will check into the sleep study. Mom to call PCP for anxiety issues and they will taper off tramadol and report back in. Mom verbalizes agreement and comfort with this plan. documented in this encounter Plan of Treatment Upcoming Encounters Date Type Department Care Team (Late st Contact Info) Description 05/02/2024 2:00 PM EST Procedure visit Neurology at [address] [address] Aaron Ruiz [facility] [place] [address] 06/08/2024 10:30 AM EST TH Visit (TeleHealth) Neurology at [address] [address] Kayy Espinosa [facility] [place] [address] documented as of this encounter Visit Diagnoses Not on filedocumented in this encounter Care Teams Turning And Beading Machine Operator Relationship Specialty Start Date End Date Allen Rodriguez MD [address] [place] [address] PCP - General 03/10/10 06/26/13 documented as of this encounter
--- OUTSIDE RECORDS SUMMARY | 2024-02-10 01:56 | XMS_ITS ---
[place] [address] Care Team Providers Care Supervisor [employer] Name Role Phone Belen Bravo Primary Care Provider + Migraine Status:Enrolled (Active) Start date:12/18/2020 Enrollment date:12/18/2020 Enrollment reason:Enrolled - Currently Fills with Specialty Current support & services provided:Clinical Management, Refill Management Linked medications:erenumab-aooe (Active) Linked problems:Migraine with aura, intractable, with status migrainosus (Active) Continued Care and Services Coordination
--- OUTSIDE RECORDS SUMMARY | 2024-02-10 01:56 | XMS_ITS | Encounter Summary ---
Author Organization [facility] [place] [address] Care Team Providers Care Attending Pathologist Name Role Phone Allen Rodriguez MD Primary Care Provider [phone] Reason for Visit * Reason Onset Date Comments Headache 08/18/2010 as r/t her meds and call from last week Encounter Details Date Type Department Care Team (Late st Contact Info) Description 08/18/2010 Telephone [place] [address] Avtar Guzmán MD [facility] [place] [address] Headache (as r/t her meds and call from last week) Social History Tobacco Use Types Packs/Day Years [...] Telephone Encounter - Cece Maguire RN - 08/18/2010 1:35 PM EDT [employer], phone [phone], fax [phone]. Letter sent today. * Telephone Encounter - Cece Maguire RN - 08/18/2010 10:38 AM EDT Irena rheum nurse to mom at work, [phone]. Spoke with Shana Salazar. Per mom, Sharmin stopped the amitriptyline last week and within 2 days felt better. She was back to school the following day and is doing well. She continues to use the tramadol as needed, mostly after highly active class or activity (ie: PE) but she is not using it daily. Mom asks for lab results, NANI -, [id number] -, inflammatory markers are WNL. Will have MD review. Mom asks if there is any need for x-ray or MRI. From Dr Guzmán's most recent office note he is diagnosing her with FMS and there does not appear to be a need for either testing. He does want her to have a sleep study and mom would prefer that to be done at [facility]. Pt also will need a letter for the school stating that she is allowed to take her tramadol at school. Lastly they cannot make her current f/u appt scheduled for 09/30/10 and that was rescheduled for thefo week. documented in this encounter Plan of Treatment Upcoming Encounters Date Type Department Care Team (Late st Contact Info) Description 05/02/2024 2:00 PM EST Procedure visit Neurology at [address] [address] Aaron Ruiz STEEL PLACER [facility] [place] [address] 06/08/2024 10:30 AM EST TH Visit (TeleHealth) Neurology at [address] [address] Kayy Espinosa APRN [facility] [address] documented as of this encounter Visit Diagnoses Diagnosis Fibromyalgia- Primary Mylagia and myositis, unspecified documented in this encounter Care Teams Attending Pathologist Relationship Specialty Start Date End Date Allen Rodriguez MD [address] [facility] [place] [address] PCP - General 03/10/10 06/26/13 documented as of this encounter
--- OUTSIDE RECORDS SUMMARY | 2024-02-10 01:56 | XMS_ITS | Clinical Summary ---
Author Organization [facility] Address [address] [place] [address] Care Team Providers Care Furnace Charging Machine Operator Name Role Phone Unknown, Provider Primary Care Provider [phone] Social History Tobacco Use Types Packs/Day Years Used Date Smoking Tobacco: Never Assessed Sex and Gender Information Value Date Recorded Sex Assigned at Not on file Gender Identity Not on file Sexual Orientation Not on file Plan of Treatment Health Maintenance Due Date Last Done Comments Hepatitis C Screen 1996 Hepatitis B Vaccine (1 of 3 - 19+ 3-dose series) 05/04 COVID-19 Vaccine (2022-24 season) 2022 Care Teams Furnace Charging Machine Operator Relationship Specialty Start Date End Date Unknown, Provider, PCP - General 07/07/15
--- OUTSIDE RECORDS SUMMARY | 2024-02-10 01:56 | XMS_ITS | Encounter Summary ---
Author Organization [facility] [place] [address] Care Team Providers Care Job Estimator Name Role Phone Allen Rodriguez MD Primary Care Provider [phone] Reason for Visit * Reason Onset Date Comments Other 09/30/2010 questions about next appt Encounter Details Date Type Department Care Team (Late st Contact Info) Description 09/30/2010 Telephone [place] [address] Avtar Guzmán MD [facility] [place] [address] Other (questions about next appt) Social History Tobacco Use Types Packs/Day Years [...] Telephone Encounter - Cece Maguire RN - 09/30/2010 4:17 PM EDT Mom to pedi rheum nurse triage line. Sharmin has an appt in neurology on 10/20/10 and has an appt withDr Guzmán on 10/07/10. She is wondering if she needs to keep the rheum appt b/c of the neurology appt shortly after. We did not refer her to neurology so that appt really has no baring on the rheumatology appt. However Dr Guzmán did want her to have a sleep study and that is in the works but not scheduled yet. It is unclear if he wants the sleep study done prior to her next appt on 10/07/10. Mom is expecting a call from the sleep lab tomorrow with a date for Sharmin's appt. She can call andlet us know when she is scheduled and then rheumatology can determine if the appt with Dr Guzmán should be rescheduled. documented in this encounter Plan of Treatment Upcoming Encounters Date Type Department Care Team (Late st Contact Info) Description 05/02/2024 2:00 PM EST Procedure visit Neurology at [address] [address] Aaron Ruiz [facility] [place] [address] 06/08/2024 10:30 AM EST TH Visit (TeleHealth) Neurology at [address] [address] Kayy Espinosa [facility] [place] [address] documented as of this encounter Visit Diagnoses Not on filedocumented in this encounter Care Teams Job Estimator Relationship Specialty Start Date End [place] [address] PCP - General 03/10/10 06/26/13 documented as of this encounter
--- OUTSIDE RECORDS SUMMARY | 2024-02-10 01:56 | XMS_ITS | Encounter Summary ---
Author Organization [facility] [place] [address] Care Team Providers Care Senior Mechanical Designer Name Role Phone Allen Rodriguez MD Primary Care Provider [phone] Reason for Visit * Reason Comments Knee Pain bilateral Hip Pain bilateral Encounter Details Date Type Department Care Team (Late st Contact Info) Description 08/05/2010 3:00 PM EDT Office Visit [address] [address] [place] [address] Avtar Guzmán MD [facility] [place] [address] Fibromyalgia (Primary Dx) Discharge Disposition: Home Social History [...] Sign Reading Time Taken Comments Blood Pressure 102/60 08/05/2010 3:25 PM EDT Pulse 70 08/05/2010 3:25 PM EDT Temperature 36.3 ??C (97.3 ??F) 08/05/2010 3:25 PM ED T Respiratory Rate - - Oxygen Saturation - - Inhaled Oxygen Concentration - - Weight 52.2 kg (115 lb 1.3 oz) 08/05/2010 3:25 P M EDT Height 163.2 cm (5' 4.25) 08/05/2010 3:25 PM ED T Body Mass Index 19.6 08/05/2010 3:25 PM EDT Body Mass Index Percentile 51.63% 08/05/2010 3:2 5 PM EDT Growth Chart: [facility] (Girls, 2- 20 Years) documented in this encounter Progress Notes * Duane Scrub Wheel Operator - 08/07/2010 10:17 PM EDT * Avtar Guzmán MD - 08/05/2010 4:45 PM EDT CLARIFICATION NEEDED: INCOMPLETE DICTATION DATE OF : 1995 REQUESTING PHYSICIAN: Allen Rodriguez M.D. The patient is a 15-year-old female with a one-year history of polyarthralgias involving her ankles, knees, and hip. Her hip occasionally radiates, but in a nonradicular pattern, and she has pain and tightness sensation in the a.m. and it is improved with both stretching and swimming. This is worsened by sitting, standing, or running and rest helps. She has never had any redness, heat, swelling, or joint tenderness. She recently went to [employer] and had a good time and was actually able to function perfectly normally, although they did cut back the activities scheduled to accommodate some for dictation was lost Has difficulty with sleep because of racing thoughts +FH back pain in father and maternal GM ROS notable for +/- raynauds On exam no active synovitis Symptoms duplicated by palpation of typical fibromyalgia tender points Nl capillaries mild hypermobility Assessment fibromyalgia Plan check serology for raynauds check B27 for back pain Tramadol for pain amitriptyline for fibro Sleep study locally documented in this encounter Procedure Notes * Provider, Scanning - 08/07/2010 11:42 AM EDTAssociated Order(s): SCAN DOC: LAB documented in this encounter Miscellaneous Notes * Miscellaneous - Duane Scrub Wheel Operator - 08/07/2010 10:17 PM EDT documented in this encounter Plan of Treatment Upcoming Encounters Date Type Department Care Team (Late st Contact Info) Description 05/02/2024 2:00 PM EST Procedure visit Neurology at [address] [address] [facility] [place] [address] 06/08/2024 10:30 AM EST TH Visit (TeleHealth) Neurology at [address] [address] Kayy Espinosa, [facility] [place] [address] documented as of this encounter Procedures Procedure Name Priority Date/Time Associated Diagnosis Comments LAB SCAN 08/07/2010 11:42 AM EDT HLA-B27 Routine 08/05/2010 5:02 PM EDT Fibromyalgia SEDIMENTATION RATE Routine 08/05/2010 5: 02 PM EDT Fibromyalgia NANI ANTIBODY SCREEN Routine 08/05/2010 5 :02 PM EDT Fibromyalgia CK Routine 08/05/2010 5:02 PM EDT Fibromyalgia documented in this encounter Results * SCAN DOC: LAB (08/07/2010 11:42 AM EDT) Narrative 08/07/2010 11:42 AM EDT Procedure Note Provider, Scanning - 08/07/2010 11:42 AM EDT Scanning Provider MEDIA MGR SCAN EXT O RDR/RSLT * Sedimentation rate, automated (08/05/2010 5:02 PM EDT) Sedimentation Rate Automated 8 0 - 20 mm/hr [facility] Blood specimen (specimen) 08/05/2010 5:02 PM EDT 08/05/2010 5:17 PM EDT Avtar Guzmán MD HEMATOLOGY ORDERABLE S Performing Organization Address [facility] de Phone Number [facility] * CPK (08/05/2010 5:02 PM EDT) Creatine Kinase 73 0 - 250 unit/L [facility] Blood specimen (specimen) 08/05/2010 5:02 PM EDT 08/05/2010 5:17 PM EDT Avtar Guzmán MD CHEMISTRY ORDERABLES Performing Organization Address [facility] Phone Number [facility] * HLA-B27 (08/05/2010 5:02 PM EDT) HLA-B27 Negative [facility] Comment: Test Performed by: [facility] Dpt of Lab Med and Pathology [address] [place] [address] Thermometer Tester: Rosalio Harry III, M.D. HLA B27 Interpretation SEE COMMENT [facility] Comment: RESULT: HLA-B27 antigen was not detected. Method: Flow Cytometry Test Performed by: [facility] Dpt of Lab Med and Pathology [address] [place] [address] Thermometer Tester: Rosalio Harry III, M.D. Blood specimen (specimen) 08/05/2010 5:02 PM EDT 08/05/2010 5:18 PM EDT Avtar Guzmán MD HEMATOLOGY ORDERABLE S Performing Organization Address [facility] de Phone Number [facility] * NANI (08/05/2010 5:02 PM EDT) NANI Neg Neg [facility] Blood specimen (specimen) 08/05/2010 5:02 PM EDT 08/06/2010 8:14 AM EDT Avtar Guzmán MD LAB SEND OUT ORDERAB LES [facility] documented in this encounter Visit Diagnoses Diagnosis Fibromyalgia- Primary Mylagia and myositis, unspecified documented in this encounter Care Teams Senior Mechanical Designer Relationship Specialty Start Date End Date Allen Rodriguez MD [address] [place] [address] PCP - General 03/10/10 06/26/13 documented as of this encounter
--- OUTSIDE RECORDS SUMMARY | 2024-02-10 01:56 | XMS_ITS | Encounter Summary ---
Author Organization [facility] [place] [address] Care Team Providers Care Yarn Dyer Name Role Phone Allen Rodriguez MD Primary Care Provider [phone] Reason for Visit * Reason Onset Date Comments Other 08/11/2010 called mom back Migraine 08/11/2010 drug related? Encounter Details Date Type Department Care Team (Late st Contact Info) Description 08/11/2010 Telephone [place] [address] Avtar Guzmán MD [facility] [place] [address] [place] [address] Other (called mom back); Migraine (drug related?) Social History Tobacco Use Types Packs/Day Years Used Date Smoking Tobacco: Never Alcohol Use Standard Drinks/Week Comments Not Asked 0 (1 standard drink = 0.6 oz pur e alcohol) Sex and Gender Information Value Date Recorded Sex Assigned at Not on file Gender Identity Not on file Sexual Orientation Not on file documented as of this encounter Miscellaneous Notes * Telephone Encounter - Avtar Guzmán MD - 08/13/2010 9:22 AM EDT Can stop amitryptiline abruptly w/o problem * Telephone Encounter - Cece Maguire RN - 08/11/2010 3:21 PM EDT Pedi rheum nurse to mom at work after discussing this case with Dr Ander Parikh in Dr Guzmán's absence. Per Dr Ander Parikh she can stop the amitriptyline tonight and observe for resolution of the headache. Mom did also want the results of blood work drawn last week. This nurse reviewed labs, all WNL. Will check in with pt tomorrow and relay lab info then. * Telephone Encounter - Ccee Maguire RN - 08/11/2010 12:36 PM EDT Mom to pedi rheum nurse triage line earlier this morning. Mom calling because Sharmin has been having headaches since starting tramadol and amitriptyline. Sheasked for a callback on what to do. This nurse called mom at work. Per Shana, Sharmin was seen by Dr Guzmán last Tue. She was prescribed both tramadol 50mg for pain and amitriptyline 10mg/night for sleep/FMS sx. She started taking the amitriptyline on Tue night and woke on morning with a headache. The headache is associated with auditory and light sensitivity and has been worsening since . Today she is home from school. Mom feels that they are migraine headaches b/c she had a similar problem last fall with severe headaches that lasted for days and did not seem to respond to any conventional therapy. She was not officially diagnosed with migraines or given prescription medication to treat them. The amitriptyline allowed her to fall asleep within 1 hour of taking it. Sharmin also started tramadol on Tuesday morning and has only used it about 3 ti mes. It does not make her drowsy. Mom does not think that the tramadol has caused the headaches. Both of these medications can cause headache and neither can be stopped abruptly. However Sharmin has not been taking either medication for very long, she started on 10mg/night of amitriptyline and remains there x 7 days. This may be easily stopped at this point. This nurse will review with Dr Guzmán and get back to mom either at work or at home after 15:30. Until then treat pt's h/a with OTC medication (she seems to have had the best results with an excedrine migraine product) as directed on the bottle. documented in this encounter Plan of Treatment Upcoming Encounters Date Type Department Care Team (Late st Contact Info) Description 05/02/2024 2:00 PM EST Procedure visit Neurology at [address] [address] [facility] [address] 06/08/2024 10:30 AM EST TH Visit (TeleHealth) Neurology at [address] [address] [facility] [address] documented as of this encounter Visit Diagnoses Not on filedocumented in this encounter Care Teams Yarn Dyer Relationship Specialty Start Date End Date Allen Rodriguez MD [address] [place] [address] PCP - General 03/10/10 06/26/13 documented as of this encounter
--- OUTSIDE RECORDS SUMMARY | 2024-02-10 01:56 | XMS_ITS | Encounter Summary ---
Author Organization [facility] Address [address] [place] [address] Care Team Providers Care Ocean Biologist Name Role Phone Unknown, Provider Primary Care Provider [phone] Encounter Details Date Type Department Care Team (Late st Contact Info) Description 07/06/2015 Historical Results Only [facility] Lab - Main [address] [address] Joanna Akins MD [address] [place] [address] Social History Tobacco Use Types Packs/Day Years Used Date Smoking Tobacco: Never Assessed Sex and Gender Information Value Date Recorded Sex Assigned at Not on file Gender Identity Not on file Sexual Orientation Not on file documented as of this encounter Plan of Treatment Not on file documented as of this encounter Procedures Procedure Name Priority Date/Time Associated Diagnosis Comments SURGICAL PATHOLOGY Routine 07/06/2015 10 :50 EDT documented in this encounter Results * SURGICAL PATHOLOGY (07/06/2015 10:50 EDT) 07/06/2015 10:5 0 EDT 07/07/2015 11:40 EDT Narrative [facility] - 07/08/2015 10:43 EDT ----- ------- Name: SHARMIN ABBOTT ?: [birth year] ?Age/Sex: 23/F ?Unit#: [id number] ? Loc: LAB[facility] ? Status: REG REF ?? Reg Date: 07/06/15 ? Pt.Phone Number: ? ----- ------- Specimen: [id number] ? STATUS: SOUT ?Spec Date:07/06/15 ? Physician Copies: ?Mable,Joanna Tissues: A ?? Appendix, other than incidental ? CPT: 16944 ?? Units: ??1 ?FINAL DIAGNOSIS ? Appendix, appendectomy; ? - Acute appendicitis and periappendicitis. ? GROSS DESCRIPTION ? Received in formalin labeled with the patient's name and appendix is a ? vermiform appendix with attached mesoappendix. The appendix has a length of 6.5 ? cm. Surgical gracie are present at the proximal resection margin which has a ? diameter 0.8 cm. The mid section of the appendix measures 0.9 cm in diameter ? and the distal tip measures 0.7 cm in diameter. The serosal surface is dull ? krishnan-leger with adherant shaggy exudate. The mesoappendix measures up to 1 cm ? wide x 0.3 cm thick. Interval sectioning shows a dilated lumen containing ? abundant exudate. There is a brown fecalith that measures 0.7 x 0.4 cm. ?? PREOP DX/CLINICAL HISTORY ?APPENDICITIS Signed ____(signature on file)____ Ej Salazar M.D. 07/08/15 By the signature above, the attending physician certifies that he/she has personally conducted a gross and/or microscopic examination of the described specimens and rendered or confirmed the above diagnosis. Test Performed by [facility], [address] [place] [address] Speed Operator: Autumn Whipple MD PHD ----- ------- Joanna Akins MD PATHOLOGY ORDERABLE S Performing Organization Address [facility]/State/[facility] Co de Phone Number [facility] documented in this encounter Visit Diagnoses Not on filedocumented in this encounter Care Teams Ocean Biologist Relationship Specialty Start Date End Date Unknown, Provider, PCP - General 07/07/15 documented as of this encounter
[2024-02-10 17:40] LABS: TSH (W/Ref FT4) 1.78 uIU/mL (0.36-3.74)
== END 2024-02-10 01:51 | disposition home or self-care (01) ==
PROVIDERS: PCP Nurse Practitioner Family; Referring Provider Nurse Practitioner Family; Visit Provider Nurse Practitioner Family
DX: E03.9 Hypothyroidism, unspecified (principal)
CPT/HCPCS: 36415; 84443

== ENCOUNTER 2024-03-22 13:28 | Emergency (ER) | payer BC, SELFPAY ==
[2024-03-22 13:44] VITALS: BP 107/56; PULSE 98; RESP 20; TEMP 38.1; O2SAT 94
[2024-03-22 14:08] VITALS: RESP 16
[2024-03-22] MEDS: Acetaminophen 500 MG TAB 1000 MG PO (14:12)
[2024-03-22] MEDS: Ondansetron O.D.T. 4 MG TABEF PO (14:12)
[2024-03-22] MEDS: Ketorolac 15 MG/ML VIAL IM (14:12)
--- NOTE | 2024-03-22 14:35 | DI.RAD_ITS ---
Exam(s) XR CHEST 2V PA LATERAL EXAM: XR CHEST 2V PA LATERAL CLINICAL HISTORY: L. shoulder pain, fever TECHNIQUE: 2D digital imaging was performed of the chest. Two images were obtained. PA and lateral views were obtained. COMPARISON: No exams were available for comparison FINDINGS: MEDIASTINUM: Normal. HEART: Normal. PULMONARY VASCULATURE: Normal. LUNGS: There is a right lower lobe infiltrate. PLEURAL SPACE: No pleural effusion or pneumothorax. BONE:Within normal limits for the patient's age. OTHER FINDINGS:Normal. IMPRESSION: Right lower lobe pneumonia. DATA REPOSITORY: RADIATION DOSE DELIVERED:
--- NOTE | 2024-03-22 14:38 | W.ED.GENAD ---
Discharge Plan Disposition Patient Disposition: Home Condition: Stable Discharge Details Clinical Impression: Pneumonia Primary Care Provider: Marli Boateng ED Provider: Shana Barahona Home Meds and New Rx's Prescriptions: New amoxicillin 500 mg capsule 1,000 mg PO TID 5 Days Qty: 30 0RF azithromycin [Zithromax Z-Igor] 250 mg tablet See Rx Instructions .ROUTE .COMPLEX Qty: 6 0RF Rx Instructions: For 250 mg dose pack: take 500 mg today (day 1), then 250 mg for 4 days (days 2-5) lidocaine 5 % adhesive patch,medicated 1 patch topical DAILY Qty: 30 0RF Rx Instructions: leave on most painful area for up to 12 hrs No Action buspirone 30 mg tablet 30 mg PO BID Qty: 180 3RF ondansetron HCl 4 mg tablet 4 mg PO Q8H PRN (Reason: nausea and vomiting) Qty: 10 0RF Aimovig Autoinjector 140 mg/mL auto-injector 140 mg subcut .[id number] magnesium oxide 500 mg tablet 500 mg PO DAILY multivitamin [Daily Multi-Vitamin] Tablet 1 tab PO DAILY valacyclovir 1 gram tablet 1,000 mg PO DAILY Qty: 90 1RF Rx Instructions: Take 1 tablet daily for suppressive therapy for cold sores sertraline 100 mg tablet 200 mg PO DAILY Qty: 180 3RF Rx Instructions: Take 2 tablets daily levothyroxine 50 mcg tablet 50 mcg PO DAILY Qty: 90 3RF Discharge Instructions Instructions: Pneumonia, Adult (DC) Additional Instructions: You were seen in the emergency department today for evaluation of bodyaches and fever and were found to have pneumonia. In our department you had a full physical examination performed, received medications which improved your headache and bodyaches, and I have provided you with a prescription for 2 antibiotics to be taken for the next 5 days to treat your infection. Your COVID and influenza testing was negative. Please continue to use Tylenol and ibuprofen for management of pain and fever. You need to follow-up with your primary care provider in the next 2 days to discuss this visit and any symptoms that change, worsen, or persist. Thank you for allowing us to be part of your care. HPI General Mode of arrival: ambulatory. Date/Time Provider Initiated Documentation: 03/22/24 13:48. Limitations to Documentation: no limitations. Information obtained by: patient and old records reviewed. HPI Narrative: HPI: This is a 28-year-old female patient with a past medical history significant for hypothyroidism, GERD, who is presenting for evaluation of bodyaches, neck and shoulder pain, and fever. Patient reports that her symptoms began a few days ago with left-sided neck pain, initially states she thought that she had just strained it or slept wrong, but it did not improve over time. She has been using Tylenol and ibuprofen, last dose last night. States that she has also had a headache, located on both sides and similar in quality to her historical migraines. She does have some nausea and photophobia associated with the symptoms. States that she began to develop a tight sensation in her chest today, and was prompted to seek care. The patient reports that her child was sick with a viral illness a week or so ago. She has been able to eat and drink, though her nausea has made it difficult to eat today. She has not noted any rashes, has not had trauma or injury. No dysuria, hematuria, diarrhea. Exam: Gen: Awake and alert, in no apparent distress HEENT: Non-icteric sclera, pupils equal and reactive, no conjunctival injection. Posterior pharynx without erythema, exudate, asymmetry. No lymphadenopathy, full range of motion of the neck without nuchal rigidity or meningismus Neck: Supple Lungs: No apparent respiratory distress, normal respiratory effort. Lung sounds clear and equal bilaterally CV: Appears well perfused, heart with regular rate and rhythm Abdomen: Non-distended, soft, nontender MSK: Moves 4 extremities without apparent limitation in ROM. The patient does have muscular tenderness to palpation over the left trapezius Skin: Visualized skin without rashes, cyanosis. Neuro: Normal Gait, no obvious focal deficits or facial asymmetry. Speaks in full, clear sentences. Psych: Appropriate for situation. MDM: This is a 28-year-old female patient presenting for evaluation of bodyaches and fever. My differential includes but is not limited to upper respiratory viral infection, pneumonia, bronchitis, certainly considered meningitis encephalitis given the neck stiffness, the patient's physical examination is more concerning for muscular spasm/strain. No history concerning for UTI, PID/TOA. The patient is maintaining her oral intake, but I have a lower concern for metabolic and electrolyte derangements, kidney injury, dehydration. The patient has a very low-grade fever, and borderline tachycardia, and I do believe she would benefit from a dose of antipyretic medications, and I provided her with Toradol, Tylenol, and a dose of Zofran for nausea. We will obtain a chest x-ray as well as COVID and influenza testing. ED Course: COVID and influenza testing negative, I independently interpreted the patient's chest x-ray which does show right lower lobe pneumonia, as the likely etiology of her symptoms. On reassessment after the above-noted medications the patient reports an improvement in her pain and discomfort, and her fever has improved. Given the recent mycoplasma outbreak, I provided her with dual antibiotic coverage including amoxicillin and azithromycin for the next 5 days. I also provided her with lidocaine patches for topical and management of pain to be used in addition to Tylenol and ibuprofen. At this time, the patient has had a full medical evaluation and is safe for discharge to home. They are hemodynamically stable, ambulatory, and tolerating PO. They are understanding of the follow-up plan and return precautions. They left our facility without incident. Shana Barahona MD Related Data Home Medications ?Medication ?Instructions ?Recorded ?Confirmed multivitamin (Daily Multi-Vitamin 1 tab PO DAILY 06/10/22 03/22/24 tablet) erenumab-aooe 140 mg/mL 140 mg subcut .[id number] 08/25/22 03/22/24 subcutaneous auto-injector (Aimovig Autoinjector) magnesium oxide 500 mg PO DAILY 08/25/22 03/22/24 buspirone 30 mg tablet 30 mg PO BID #180 tabs 09/29/22 03/22/24 ondansetron HCl 4 mg tablet 4 mg PO Q8H PRN nausea and 06/15/23 03/22/24 vomiting #10 tabs valacyclovir 1 gram tablet 1,000 mg PO DAILY cold sores #90 11/10/23 03/22/24 tabs sertraline 100 mg tablet 200 mg (2 x 100 mg) PO DAILY #180 12/12/23 03/22/24 tabs levothyroxine 50 mcg tablet 50 mcg PO DAILY #90 tabs 02/16/24 03/22/24 amoxicillin 500 mg capsule 1,000 mg (2 x 500 mg) PO TID 5 03/22/24 days #30 caps azithromycin 250 mg tablet See Rx Instructions PO .COMPLEX #6 03/22/24 (Zithromax Z-Igor) tabs lidocaine 5 % topical patch 1 patch topical DAILY #30 ea 03/22/24 Previous Rx's ?Medication ?Instructions ?Recorded buspirone 30 mg tablet 30 mg PO BID #180 tabs 09/29/22 ondansetron HCl 4 mg tablet 4 mg PO Q8H PRN nausea and 06/15/23 vomiting #10 tabs valacyclovir 1 gram tablet 1,000 mg PO DAILY cold sores #90 11/10/23 tabs sertraline 100 mg tablet 200 mg (2 x 100 mg) PO DAILY #180 12/12/23 tabs levothyroxine 50 mcg tablet 50 mcg PO DAILY #90 tabs 02/16/24 amoxicillin 500 mg capsule 1,000 mg (2 x 500 mg) PO TID 5 03/22/24 days #30 caps azithromycin 250 mg tablet See Rx Instructions PO .COMPLEX #6 03/22/24 (Zithromax Z-Igor) tabs lidocaine 5 % topical patch 1 patch topical DAILY #30 ea 03/22/24 Allergies Allergy/AdvReac Type Severity Reaction Status Date / Time lactose Allergy Unknown Diarrhea Unverified 03/22/24 13:48 General Stated Complaint: GenMedical HERMILO: 4 Course Vital Signs Vital signs: Vital Signs Temperature 38.1 C H 03/22/24 13:44 Pulse 98 H 03/22/24 13:44 Respiratory Rate 20 03/22/24 13:44 Blood Pressure 107/56 L 03/22/24 13:44 Pulse Oximetry 94 03/22/24 13:44 Temperature 38.1 C H 03/22/24 13:44 Pulse 98 H 03/22/24 13:44 Respiratory Rate 16 03/22/24 14:08 Respiratory Effort Normal 03/22/24 14:08 Respiratory Depth Normal 03/22/24 14:08 Respiratory Pattern Normal 03/22/24 14:08 Blood Pressure 107/56 L 03/22/24 13:44 Pulse Oximetry 94 03/22/24 13:44 Pain Level 8 03/22/24 14:12 Medical Decision Making Quality:SDOH Health Related Social Needs: No Data to Display PFSH All Active Problems (Updated 03/22/24 @ 14:47 by Shana Barahona MD) Pneumonia (Acute) Marijuana use (Acute) (Acute) Missed menses (Acute) GERD (gastroesophageal reflux disease) (Chronic) Hypothyroidism (Chronic) Major depressive disorder, recurrent (Chronic) Generalized anxiety disorder (Chronic) Insomnia (Chronic) Medical History (Updated 03/22/24 @ 14:47 by Shana Barahona MD) Migraine with aura Hirsutism Oral herpes simplex infection Primary fibromyalgia syndrome IBS (irritable bowel syndrome) Surgical History Hx of appendectomy Status post tonsillectomy and adenoidectomy Family History (Updated 01/02/24 @ 10:46 by Fely Bhatt CNM) Mother Hyperlipidemia Depression Cervical cancer Hypertension Hypothyroid Anxiety Father Alcohol use disorder Diabetes Hypertension Sister Asthma Depression Irritable bowel Anxiety Seizure disorder Brother Depression Asthma Daughter No problems noted. Maternal Grandfather Depression Colon cancer Maternal Grandmother Hypertension Hyperlipidemia Depression Paternal Grandfather Depression Leukemia Alcohol use disorder Colon cancer Paternal Grandmother Depression Hypertension Hyperlipidemia Social History Smoking/Tobacco Use Status: Never Second Hand Exposure: Yes Smoking risk assessment performed?: Yes Alcohol Intake: current Alcohol Intake frequency: a few times a week Alcohol type: wine and hard liquor Drug use: Daily Substance use type: marijuana Caregiver/Support person: No Household members: significant other and children Housing: house Communication Needs: Corrective Lenses Do you need help understanding health information?: Rarely Pets and animals: No Sexually active: Yes Do you think of yourself as: straight/heterosexual Current gender identity: female What is your relationship status?: living with partner How often do you talk on the phone with friends or family?: three or more times per week How often do you get together with friends or relatives?: twice per week How often do you attend adventist or mosque services?: decline to answer Do you belong to any clubs or organized social groups?: no Panel score (0-1 are the most socially isolated patients): 2 What type of physical activity do you participate in: aerobic, resistance training and yoga Duration: 15-30 minutes/day Frequency: 5-6 times per week Marsha/Restoration: No preference Special marsha needs: No Seatbelt use: always Helmet use: Yes Helmet use: always Drive intox or ride w/intox charter and tour bus driver: Yes (Does not drive intox. Rarely rides with intox. charter and tour bus driver - Per patient packet ) Drive intox or w/intox charter and tour bus driver: rarely Female Reproductive History Menstrual control method: natural family planning, condoms and other (boyfriend had vasectomy) History History 3 Para Hx # Term Pregnancies 1 Multiple births Hx # Pregnancies Ectopic pregnancies AB induced 1 Hx Number of Living Children 1 AB spontaneous Past Pregnancies Del. Date GA/Weeks # Preg Succ Route Wgt Sex Labor Lgth Anesthesia Location Prov Complic 02/05/19 38 2721.554 g Female [facility] Delivery Date: 02/05/19 Last Updated by: NATALIE Hampton
[2024-03-22 14:53] VITALS: BP 138/78; PULSE 88; RESP 16; TEMP 37.7; O2SAT 98
== END 2024-03-22 14:54 | disposition home or self-care (01) ==
LOC: ER 16:47
PROVIDERS: Emergency Provider Emergency Medicine; PCP Nurse Practitioner Family
DX: J18.9 Pneumonia, unspecified organism (principal)
CPT/HCPCS: 96372; 99284; 71046; J1885

== ENCOUNTER 2024-03-27 11:00 | Outpatient (REF) | payer BC, SELFPAY ==
--- NOTE | 2024-03-27 10:30 | PAPFT_PTH ---
PATIENT: Sharmin Parr LOC: [facility] U#:[id number] AGE/SX: 28/F ROOM: RE03/27/[address]: Autumn Daniels NP : 1995 BED: DIS: 03/27/2024 SPEC #: [id number] RECD: 03/27/24 13:17 STATUS: MARILEE REQ #: [id number] RADAMES: 03/27/24 10:[address]: Jeremiah FUNES,Autumn DEPT: [facility] Cytology RECD BY: Diane Terry ENTERED: 03/27/24 13:17 SP TYPE: PAPFT OTHR DR: GURINDER Jones Tissues: 1 - CX/ENDOCX FOR PAP SMEARS Procedures: PAP THIN PREP/UVM Screening Comments: [id number] (CHLAMYDIA/GC)
[2024-03-28 11:49] LABS: Chlamydia Result Negative (Negative); GC Result Negative (Negative)
[2024-03-28 12:04] LABS: HSV 1 DNA Result Negative (Negative); HSV 2 DNA Result Negative (Negative)
== END 2024-03-27 11:01 | disposition home or self-care (01) ==
LOC: LBN 11:00
PROVIDERS: PCP Nurse Practitioner Family; Visit Provider Nurse Practitioner Women's Health
DX: Z11.51 Encounter for screening for human papillomavirus (HPV) (principal); Z01.419 Encounter for gynecological examination (general) (routine) without abnormal findings; Z11.3 Encounter for screening for infections with a predominantly sexual mode of transmission
CPT/HCPCS: 87491; 87529; 87591; 88142

== ENCOUNTER 2024-05-15 16:23 | Outpatient (REF) | payer BC, SELFPAY ==
--- NOTE | 2024-05-15 16:00 | CER_PTH ---
PATIENT: Sharmin Parr LOC: [facility] U#:[id number] AGE/SX: 29/F ROOM: RE05/15/[address]: Yaz Mei MD : 1995 BED: DIS: 05/15/2024 SPEC #: [id number] RECD: 05/15/24 17:33 STATUS: MARILEE REQ #: [id number] RADAMES: 05/15/24 16:[address]: Yaz Mei DEPT: Surgical Specimen RECD BY: Diane Terry ENTERED: 05/15/24 17:35 SP TYPE: CER OTHR DR: GURINDER Jones Tissues: 1 - CERVICAL BIOPSY Procedures: GROSS AND MICRO LEVEL 4 Comments: [id number]
== END 2024-05-15 16:24 | disposition home or self-care (01) ==
LOC: LBN 16:23
PROVIDERS: PCP Nurse Practitioner Family; Visit Provider Obstetrics & Gynecology
DX: Z87.42 Personal history of other diseases of the female genital tract (principal); B00.2 Herpesviral gingivostomatitis and pharyngotonsillitis
CPT/HCPCS: 88305

== ENCOUNTER 2024-08-14 00:31 | Outpatient (CLI) | payer BC, SELFPAY ==
[2024-08-14 12:59] LABS: Anion Gap 8.5 mmol/L (3-11); BUN 13 mg/dL (7-18); CO2 29.5 mmol/L (21.0-32.0); CREATININE 0.9 mg/dL (0.55-1.02); Calcium 9.3 mg/dL (8.5-10.1); Chloride 104 mmol/L (98-107); Glucose 96 mg/dL (74-106); Sodium 142 mmol/L (136-145)
[2024-08-14 19:23] LABS: HBs Antibody, Quant >1000.0 mIU/mL (See Note); Hep B Surface Ab Positive (See Note); Hepatitis B Core Antibody Negative (Negative); Hepatitis B Surface Antigen Negative (Negative)
[2024-08-15 11:33] LABS: Syphilis Serology (RPR) Negative (Negative)
== END 2024-08-14 00:32 | disposition home or self-care (01) ==
LOC: LBO 00:31
PROVIDERS: PCP Nurse Practitioner Family; Visit Provider Nurse Practitioner Family
DX: Z00.00 Encounter for general adult medical examination without abnormal findings (principal); Z11.59 Encounter for screening for other viral diseases; N90.89 Other specified noninflammatory disorders of vulva and perineum
CPT/HCPCS: 36415; 80048; 86704; 86706; 87340; 84443; 86592

== ENCOUNTER 2024-12-21 09:13 | Outpatient (CLI) | payer BC, SELFPAY | END 2024-12-21 09:14 | disposition home or self-care (01) | LOC: LBO 09:14 | PROVIDERS: PCP Nurse Practitioner Family; Visit Provider Obstetrics & Gynecology | DX: O26.851 Spotting complicating pregnancy, first trimester (principal); Z3A.01 Less than 8 weeks gestation of pregnancy | CPT/HCPCS: 36415; 84702 ==

== ENCOUNTER 2024-12-24 07:47 | Outpatient (CLI) | payer BC, SELFPAY ==
[2024-12-24 08:31] LABS: HCG Quant, Pregnancy 37782 mIU/mL (1-3)
== END 2024-12-24 07:48 | disposition home or self-care (01) ==
LOC: LBO 12-25 07:47
PROVIDERS: PCP Nurse Practitioner Family; Visit Provider Obstetrics & Gynecology
DX: O26.851 Spotting complicating pregnancy, first trimester (principal)
CPT/HCPCS: 36415; 84702

== ENCOUNTER 2024-12-26 06:31 | Day surgery (SDC) | payer BC, SELFPAY ==
[2024-12-26 06:43] VITALS: BP 105/59; PULSE 64; RESP 16; TEMP 36.5; O2SAT 99
[2024-12-26] MEDS: Lactated Ringers 1,000 ML 125 ML IV (06:59)
--- NOTE | 2024-12-26 07:15 | ANES.PREOP_ITS ---
General Info Date of Service Date Performed: 12/26/24 Height: 5 ft 4 in Weight: 61.4 kg Body Mass Index (BMI): 23.2 Surgical Procedure: Operation Date: 12/26/24 07:40 Proposed Procedure Side Surgeon p D+C with suction Yaz Mei MD s Dilation & Curettage with Hysteroscopy, insertion of Liletta IUD Yaz Mei MD Meds Allergies and Home Medications Allergies Allergy/AdvReac Type Severity Reaction Status Date / Time lactose Allergy Unknown Diarrhea Unverified 12/26/24 06:51 Home Medication ?Medication ?Instructions ?Recorded multivitamin (Daily Multi-Vitamin 1 tab PO DAILY 06/10 tablet) erenumab-aooe 140 mg/mL 140 mg subcut .[id number] 08/25 subcutaneous auto-injector (Aimovig Autoinjector) magnesium oxide 500 mg PO DAILY 08/25/22 ondansetron HCl 4 mg tablet 4 mg PO Q8H PRN nausea and 06/15/23 vomiting #10 tabs sertraline 100 mg tablet 200 mg (2 x 100 mg) PO DAILY #180 12/12/23 tabs levothyroxine 50 mcg tablet 50 mcg PO DAILY #90 tabs 1 elderberry fruit 350 mg capsule mg PO DAILY 03/27/24 omeprazole 20 mg capsule,delayed 20 mg PO DAILY #90 ca ps 07/20/24 release valacyclovir 1 gram tablet 1,000 mg PO DAILY cold sore s #90 12/19/24 tabs Current Visit Medications: Current Medications Generic Name Dose Route Start Last Admin Trade Name Freq PRN Reason Stop Dose Admin Ringer's Solution 1,000 mls @ 125 mls/hr 12/26/24 07:15 12/26/24 06:59 IV 01/25/25 07:14 125 mls/hr INFUSION LORENZO Administration PFSH Active Problems Active Problems: Problem Status Onset Code Early loss Acute O03.9 of unknown anatomic location Acute O36.80X0 Hypothyroidism Chronic E03.9 Generalized anxiety disorder Chronic F41.1 Major depressive disorder, recurrent Chronic F33.9 Migraine with aura Chronic G43.109 Acne vulgaris Chronic L70.0 GERD (gastroesophageal reflux disease) Chronic K21.9 IBS (irritable bowel syndrome) Chronic K58.9 Abnormal Pap smear of cervix Chronic R87.619 Primary fibromyalgia syndrome Chronic M79.7 Oral herpes simplex infection Chronic B00.2 Marijuana use Chronic F12.90 Hirsutism Chronic L68.0 Insomnia Chronic G47.00 Surgical History Surgical History Hx of appendectomy Status post tonsillectomy and adenoidectomy Tobacco Smoking/Tobacco Use Status: Never Passive smoking exposure: Yes Second hand exposure: Yes Alcohol Alcohol Intake: current Alcohol intake frequency: a few times a month Alcohol type: wine and hard liquor Substance Use Substance use: Socially Substance use type: does not use and marijuana Details: 12/26/24: Has not used marijuana in weeks Prental History History 2 Para 1 Hx # Term Pregnancies 1 Multiple births Hx # Pregnancies Ectopic pregnancies AB induced 1 Hx Number of Living Children 1 AB spontaneous Past Pregnancies Del. Date GA/Weeks # Preg Succ Route Wgt Sex Labor Lgth Anesth esia Location Prov Complic 02/05/19 38 No Yes 2721.554 g Female [facility] 01/16/24 8 No No Delivery Date: 02/05/19 Last Updated by: Fely Bhatt CNM [facility] Delivery Date: 01/16/24 Last Updated by: Autumn Daniels NP [facility] Vital Signs and Lab Results Vital Signs Most Recent Vital Signs in EMR: Most Recent Vital Signs Temp Pulse Resp BP Pulse Ox 36.5 C 64 16 105/59 L 99 12/26/24 06:43 12/26/24 06:43 12/26/24 06:43 12/26/24 06:43 12/26/24 06:43 Lab Results Blood Type / Crossmatch: Antibody Screen Pending Today Panel: Urine HCG, Qual Positive 12/14/24, 14:35 Beta HCG, Quant, (1-3) 17522 mIU/mL H 12/24/24, 07:35 Anesthesia Assessment and Plan Anesthesia History Personal History: No History of Anesthesia Complications Family History: No Family History of Anesthesia Complications Exercise Tolerance Exercise Tolerance: Metabolic Equivalents>4 Pertinent Negatives Pertinent Negatives: No Symptoms of GERD, No Major Cardiovascular Symptoms or Complaints, No Major Pulmonary Symptoms or Complaints and No History of CVA/TIA Cardiac & Pulmonary Exam Cardiac Exam: Normal S1/S2 Heart Sounds Pulmonary Exam: Clear Bilateral Breath Sounds Implantable Cardiac Device Does patient have a Pacemaker or an ICD?: No Airway Exam Known Difficult Airway: No Mallampati Class: 1 Mouth Opening: Normal (> 3cm) Thyromental Distance: Greater than 3 cm Neck Range of Motion: Full ROM Neck Circumference: Normal Teeth Condition: Normal Dentition ASA Classification ASA Score: ASA 2 Emergency Case?: No NPO Status NPO Status: NPO Clears >2 hours, Solids >8 hours Status Status: Other (miscarriage ) Anesthesia Plan Resuscitation Status: Full Code Anesthesia Technique: General Anesthesia Airway Planned: Natural Airway Monitors Used: Standard Monitors
[2024-12-26 07:37] VITALS: BMI 23.2
[2024-12-26] MEDS: Bupivacaine 0.25% Pres-Free W/EPI 30 ML VIAL (08:00)
--- NOTE | 2024-12-26 08:05 | POCSPONT_PTH ---
PATIENT: Sharmin Parr LOC: [facility] U#:[id number] AGE/SX: 29/F ROOM: RE12/26/[address]: Yaz Mei MD : 1995 BED: DIS: 12/26/2024 SPEC #: [id number] RECD: 12/26/24 12:44 STATUS: MARILEE REJennifer #: [id number] RADAMES: 12/26/24 08:[address]: Yaz Mei DEPT: Surgical Specimen RECD BY: Diane Terry ENTERED: 12/26/24 12:48 SP TYPE: POCSTEPHANIE CLAYTON DR: GURINDER Jones Tissues: 1 - ,SPONTANEOUS Procedures: GROSS AND MICRO LEVEL 4 Comments: [id number]
[2024-12-26] MEDS: Silver Nitrate Stick 1 EACH (08:15)
[2024-12-26 08:22] VITALS: BP 112/63; PULSE 71; RESP 17; TEMP 36.6; O2SAT 94
--- NOTE | 2024-12-26 08:36 | W.PM.OP ---
Operative Note Operative Note PRE-OP DIAGNOSIS: Nonviable same PROCEDURE: Hysteroscopy dilation and curettage, insertion of Liletta IUD SURGEON: Yaz Mei Refer to Anesthesia Record ESTIMATED BLOOD LOSS: 20 PATHOLOGY: other (Products of conception) COMPLICATIONS: None Patient was transported to: PACU Patient's condition: stable Indications: Pt is a 29yo P1 with a nonviable , intrauterine sac, though no yolk sac or pole. She opts for definitive management with a D&C. Findings: Gestational sac noted and removed. Normal appearing uterine cavity. Uterus retroverted. Procedure Description: After informed consent was signed the patient was taken to the operating room and given General room air anesthesia. SCDs were placed on her legs. She was prepped and draped in the dorsal lithotomy position in the [facility]. A time out was performed. Her bladder was drained of urine if not done immediately prior to entrance to the OR. Exam under anesthesia revealed normal external genitalia, vagina normal for age and a normal sized uterus. A speculum was placed into the vagina to reveal the cervix. The anterior lip of the cervix was grasped with a single tooth tenaculum. A paracervical block was given with 8ml of 0.25% marcaine. The cervix was dilated. The hysteroscope was inserted into the uterine cavity and a gestational sac was noted attached to the anterior wall. Both ostia visualized. The hysteroscope was removed. The suction device was assembled and turned on. The uterine cavity was gently suctioned to remove the products of conception until there was a gritty texture in all four quadrants of the uterine cavity. The hysteroscope was reinserted and the uterine cavity appeared empty. There was minimal bleeding and the uterus was noted to be firm. The tenaculum was removed from the cervix with good hemostasis with silver nitrate. The speculum was removed from the vagina. The patient was placed back into the supine position. She was moved to the stretcher and taken to the recovery room in stable condition. Date of Procedure: 12/26/24
[2024-12-26 08:56] VITALS: BP 125/114; PULSE 69; RESP 17; TEMP 36.6; O2SAT 100
--- NOTE | 2024-12-26 09:05 | W.ANESPOSTOP ---
Postoperative Evaluation Date, Time and Location Date Performed: 12/26/24 Time Performed: 09:05 Patient Location: Day Surgery Unit Vital Signs Most Recent Imported Vital Signs: Most Recent Vital Signs Temp Pulse Resp BP Pulse Ox 36.6 C 69 17 125/114 H 100 12/26/24 08:56 12/26/24 08:56 12/26/24 08:56 12/26/24 08:56 12/26/24 08:56 Pain Score Most Recent Pain Score: Most Recent Pain Score Pain Level 0 12/26/24 08:56 Assessment Mental Status: Awake (Alert & Oriented to Patient Baseline) Airway and Respiratory Function: Patent airway with normal (patient baseline) respiratory exam Cardiovascular Function: Hemodynamically Stable Hydration Status: Adequately Hydrated Nausea & Vomiting: No Nausea or Vomiting Pain: Pain is tolerable per patient Peripheral Nerve Block: Patient did not receive a nerve block
--- NOTE | 2024-12-26 10:07 | W.PM.DSUDISC ---
Date of service: 12/26/24 Discharge Plan Disposition Patient Disposition: Home Discharge Details Attending Provider: Yaz Mei Primary Care Provider: Marli Boateng Home Meds and New Rx's Prescriptions: No Action ondansetron HCl 4 mg tablet 4 mg PO Q8H PRN (Reason: nausea and vomiting) Qty: 10 0RF omeprazole 20 mg capsule,delayed release(DR/EC) 20 mg PO DAILY Qty: 90 3RF Aimovig Autoinjector 140 mg/mL auto-injector 140 mg subcut .[id number] magnesium oxide 500 mg tablet 500 mg PO DAILY elderberry fruit 350 mg capsule PO DAILY multivitamin [Daily Multi-Vitamin] Tablet 1 tab PO DAILY sertraline 100 mg tablet 200 mg PO DAILY Qty: 180 3RF Rx Instructions: Take 2 tablets daily levothyroxine 50 mcg tablet 50 mcg PO DAILY Qty: 90 3RF valacyclovir 1 gram tablet 1,000 mg PO DAILY Qty: 90 1RF Rx Instructions: Take 1 tablet daily for suppressive therapy for cold sores Discharge Instructions Stand Alone Forms: Anesthesia Discharge Inst., DSU Post D&C, Kavitha Katz ([facility]U) Referrals: Yaz Mei MD [ [facility] STAFF PHYSICIAN, Obstetrics] - 01/07/25 9:40 am Activity:: Nothing in the vagina Diet:: As Tolerated Discharge Orders Discharge Orders: Discharge Order (Routine); Ordered 12/26/24 Ordered By: Yaz Mei Discharge Data Discharge Date/Time-TO BE ENTERED AT DEPARTURE: 12/26/24 09:27
== END 2024-12-26 09:27 | disposition home or self-care (01) ==
PROVIDERS: PCP Nurse Practitioner Family; Visit Provider Obstetrics & Gynecology
PROC: 0U2DXHZ Change Contraceptive Device in Uterus and Cervix, External Approach (ICD-10-PCS; CPT 59841; principal; 2024-12-26 07:30)
PROC: 0UDB8ZZ Extraction of Endometrium, Via Natural or Artificial Opening Endoscopic (ICD-10-PCS; CPT 58558; 2024-12-26 07:30)
DX: O03.9 Complete or unspecified spontaneous abortion without complication (principal); Z3A.01 Less than 8 weeks gestation of pregnancy
CPT/HCPCS: 59812; 58300; 86850; 86900; 86901; 88305; J0131; J1100; J1885; J2003; J2250; J2405; J2704

== ENCOUNTER 2024-12-31 17:01 | Outpatient (CLI) | payer BC, SELFPAY ==
[2024-12-31 13:16] LABS: HCG Quant, Pregnancy 1213 mIU/mL (1-3)
== END 2024-12-31 17:02 | disposition home or self-care (01) ==
LOC: LBO 17:02
PROVIDERS: PCP Nurse Practitioner Family; Visit Provider Obstetrics & Gynecology
DX: O26.859 Spotting complicating pregnancy, unspecified trimester (principal); Z97.5 Presence of (intrauterine) contraceptive device
CPT/HCPCS: 36415; 84702

== ENCOUNTER 2025-01-30 00:03 | Outpatient (CLI) | payer BC, SELFPAY ==
[2025-01-30 09:08] LABS: HCG Quant, Pregnancy 3 mIU/mL (1-3)
== END 2025-01-30 00:04 | disposition home or self-care (01) ==
LOC: LBO 00:03
PROVIDERS: PCP Nurse Practitioner Family; Visit Provider Obstetrics & Gynecology
DX: O26.859 Spotting complicating pregnancy, unspecified trimester (principal)
CPT/HCPCS: 36415; 84702

== ENCOUNTER 2025-02-06 01:31 | Outpatient (CLI) | payer BC, SELFPAY ==
--- NOTE | 2025-02-06 06:15 | DI.RAD_ITS ---
Exam(s) XR PELVIS AP EXAM: XR PELVIS AP CLINICAL HISTORY: IUD migration,iud location,t83.32xa. TECHNIQUE: 2D digital imaging was performed.One images were obtained. COMPARISON: No exams were available for comparison FINDINGS: BONES: No acute fracture is present. No bony destructive lesion is seen. JOINTS: No dislocation present. No joint space narrowing is present. SOFT TISSUE: There is an IUD seen in the pelvis overlying the inferior aspect of the sacrum. IMPRESSION: There is an IUD seen in the pelvis. To confirm an intrauterine location, a pelvic ultrasound is recommended. DATA REPOSITORY: RADIATION DOSE DELIVERED:
== END 2025-02-06 01:51 ==
LOC: DI 01:32
PROVIDERS: PCP Nurse Practitioner Family; Visit Provider Obstetrics & Gynecology
DX: T83.32XA Displacement of intrauterine contraceptive device, initial encounter (principal)
CPT/HCPCS: 72170

== ENCOUNTER 2025-03-26 18:11 | Outpatient (REF) | payer BC, SELFPAY ==
--- NOTE | 2025-03-26 16:00 | PAPFT_PTH ---
PATIENT: Sharmin Parr LOC: [facility] #:[id number] AGE/SX: 29/F ROOM: RE03/26/[address]: Yaz Mei MD : 1995 BED: DIS: 03/26/2025 SPEC #: [id number] RECD: 03/26/25 18:18 STATUS: MARILEE REQ #: [id number] RADAMES: 03/26/25 16:[address]: Yaz Mei DEPT: [facility] Cytology RECD BY: Diane Terry ENTERED: 03/26/25 18:18 SP TYPE: PAPFT OTHR DR: Marli Boateng, GURINDER Tissues: 1 - CX/ENDOCX FOR PAP SMEARS Procedures: PAP THIN PREP/UVM Screening HPV DNA PROBE Comments: [id number] (HPV 16 & 18/45)
[2025-03-28 11:32] LABS: Chlamydia Result Negative (Negative); GC Result Negative (Negative)
== END 2025-03-26 18:12 | disposition home or self-care (01) ==
LOC: LBN 18:11
PROVIDERS: PCP Nurse Practitioner Family; Visit Provider Obstetrics & Gynecology
DX: Z70.8 Other sex counseling (principal); Z12.4 Encounter for screening for malignant neoplasm of cervix
CPT/HCPCS: 87491; 87591; 88142; 87624